=== PATIENT | female | born 1970 | race Caucasian/White ===

== ENCOUNTER 2017-05-01 14:59 | Emergency (ER) | payer OTHER ==
[2017-05-01 15:47] LABS: Absolute Lymphocytes (CBC) 4.6 K/uL (0.7-4.9); Absolute Monocytes 0.7 K/uL (0.1-1.3); Absolute Neutrophil 7.8 K/uL (1.8-8.0); Basophils % 0.8 % (0-1.3); Eosinophils % 0.6 % (0-4.4); Hematocrit 48.2 % (36.0-45.0); Lymphocytes % 34.4 % (15.3-44.8); MCH 30.8 pg (27.0-35.0); MCV 90.2 fL (80-100); MPV 9.2 fL (7.6-11.3); Monocytes % 5.6 % (3.3-12.3); RBC Red Blood Cell Count 5.34 M/uL (3.86-4.86)
[2017-05-01] MEDS ORDERED: NA CHLORIDE 0.9% 500 ML ONE (15:51)
[2017-05-01] MEDS ORDERED: LORazepam 2 MG/ML VIAL ONE (15:51)
[2017-05-01 15:52] LABS: Protime INR 0.97
[2017-05-01 15:57] LABS: Bicarbonate 24 mEq/L (21-31); Glucose Level 113 mg/dL (65-120); Potassium 3.7 mEq/L (3.6-5.0); Sodium Level 140 mEq/L (135-145)
[2017-05-01 16:03] LABS: ALT/SGPT 47 IU/L (10-60); AST/SGOT 55 IU/L (10-42); Albumin 5.2 g/dL (3.2-5.5); Alkaline Phosphatase 111 IU/L (42-121); BUN Blood Urea Nitrogen 8 mg/dL (6-20); Bilirubin Direct 0.2 mg/dL (0-0.2); Bilirubin Total 0.6 mg/dL (0.3-1.2); Glomerular Filtration Rate 65 mL/min (=/>90); Protein, Total 8.2 g/dL (6.0-8.3)
[2017-05-01 16:28] LABS: Barbiturates POSITIVE; Benzodiazepines POSITIVE; Cocaine NEGATIVE; METHAMPHETAM NEGATIVE; Opiates POSITIVE; Phencyclidine NEGATIVE; THC Cannibis NEGATIVE
[2017-05-01 16:44] LABS: Salicylates Level 9.9 mg/dl (<30)
[2017-05-01 16:51] LABS: Alcohol Serum/Plasma < 10 mg/dl
[2017-05-01] MEDS ORDERED: DIPHENHYDRAMINE 50 MG/ML VIAL ONE (17:16)
--- NOTE | 2017-05-01 17:53 | ER ---
Nurse's Notes [facility] Name: Rosario Hines Age: 46 yrs Sex: Female : 1970 Arrival Date: 05/01/2017 Time: 15:02 Bed 7 Private MD: Rufina Maradiaga H Diagnosis: Tremor, unspecified Presentation: 05/01 15:12 Presenting complaint: states: "She called me at work, said she felt like she hb was having a panic attack, took clonazepam, but it hasn't started to work yet, she is shaking bad.". Transition of care: patient was not received from another setting of care. Onset of symptoms was May 01, 2017. Care prior to arrival: Medication(s) given: clonazepam at 1330 today. 15:12 Method Of Arrival: Wheelchair hb 15:12 Acuity: LANETTE 3 hb 15:14 Note Pt sitting upright in wheelchair, looking around, talking to spouse, extremities hb shaking. 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 - Social history:: Smoking status: Patient uses tobacco products, smokes one-half pack cigarettes per day. Screenin:23 Abuse screen: Denies threats or abuse. Denies injuries from another. Nutritional jl7 screening: No deficits noted. Tuberculosis screening: No symptoms or risk factors identified. Fall Risk Secondary diagnosis (15 points) seizures, IV access (20 points). Mental Status- Overestimates/Forgets Limitations (15 pts.). Total Burnette Fall Scale indicates High Risk Score (45 or more points). Fall prevention measures have been instituted. Side Rails Up X 2 Placed Close to Nursing Station Frequent Obs/Assessments Occuring Family Present and informed to notify staff if the need to leave the bedside As available patient and family educated on Fall Prevention Program and Strategies. Assessment: 15:15 General: Appears in no apparent distress. Behavior is Pt's upper extremities appear to jl7 be shaking. Pt able to answer questions, A\\T\\Ox3.. Pain: Denies pain. Neuro: Level of Consciousness is awake, obeys commands, Oriented to person, place, time. Cardiovascular: Heart tones S1 S2 present. Respiratory: Airway is patent Respiratory effort is even, unlabored, Respiratory pattern is regular, symmetrical, Breath sounds are clear bilaterally. Derm: Skin is pink, warm \\T\\ dry. 16:15 Reassessment: No changes from previously documented assessment. Patient and/or family jl7 updated on plan of care and expected duration. Pain level reassessed. Patient is alert, oriented x 3, equal unlabored respirations, skin warm/dry/pink. 16:43 Reassessment: Provider at bedside discussing plan of care. jl7 17:03 Reassessment: No changes from previously documented assessment. Patient and/or family jl7 updated on plan of care and expected duration. Pain level reassessed. 18:00 Reassessment: Pt ambulated out of the ER, steady gate, no shaking of the extremities jl7 noted. Vital Signs: 15:15 Pulse 98; Resp 24; Temp 98; Pulse Ox 98% on R/A; hb 15:18 BP 169 / 108; Pulse 106; Resp 16 S; Pulse Ox 100% on R/A; Weight 81.65 kg (R); Height 5 jl7 ft. 4 in. (162.56 cm) (R); 15:30 BP 172 / 109; Pulse 90; Resp 18 S; Pulse Ox 99% on R/A; jl7 16:30 BP 158 / 92; Pulse 84; Resp 16 S; Pulse Ox 94% on R/A; jl7 17:21 BP 162 / 102; Pulse 68; Resp 18 S; Pulse Ox 94% on R/A; jl7 17:55 BP 155 / 94; Pulse 86; Resp 16 S; Pulse Ox 100% on R/A; jl7 15:18 Body Mass Index 30.90 (81.65 kg, 162.56 cm) jl7 15:18 Pt's upper extremities shaking jl7 ED Course: 15:02 Patient arrived in ED. mr 15:02 Rufina Maradiaga DO is Private Physician. mr 15:13 Triage completed. hb 15:16 Arm band placed on right wrist. hb 15:20 Initial lab(s) drawn, by ED staff, sent to lab. Inserted saline lock: 20 gauge in right jl7 antecubital area, using aseptic technique. Blood collected. 15:20 Urine collected: Blair catheter specimen, clear. Straight cath inserted, using sterile jl7 technique, 16 Fr. Specimen obtained. Returned clear yellow urine. Patient tolerated well. 15:25 Cheo Deluca PA is PHCP. cp 15:25 Arden Hilario MD is Attending Physician. cp 15:30 Jacob Partida RN is Primary Nurse. jl7 15:47 EKG done, by technology project manager. reviewed by Cheo JACINTO. rg3 16:23 Patient has correct armband on for positive identification. Placed in gown. Bed in low jl7 position. Call light in reach. Side rails up X2. Seizure precautions initiated. Pulse ox on. NIBP on. Warm blanket given. 17:55 No provider procedures requiring assistance completed. IV discontinued, intact, jl7 bleeding controlled, No redness/swelling at site. Pressure dressing applied. Administered Medications: 15:35 Drug: NS 0.9% 500 ml Route: IV; Rate: bolus; Site: right antecubital; jl7 16:26 Follow up: IV Status: Completed infusion jl7 15:40 Drug: Ativan 0.5 mg Route: IVP; Site: right antecubital; jl7 16:26 Follow up: Response: No adverse reaction; No change in condition jl7 17:02 Drug: Benadryl 25 mg Route: IVP; Site: right antecubital; jl7 17:30 Follow up: Response: No adverse reaction jl7 17:52 Not Given (Physician Discretion): Geodon 10 mg IM once cp Outcome: 17:53 Discharge ordered by . cp 18:00 Discharged to home ambulatory. jl7 18:00 Condition: stable 18:00 Discharge instructions given to patient, family, Instructed on discharge instructions, follow up and referral plans. medication usage, Demonstrated understanding of instructions, follow-up care, medications, Prescriptions given X 1. 18:09 Patient left the ED. jl7 Signatures: Carol Cuba mr PulidoCely rg3 Cheo Deluca PA PA cp Baxter, Heather, RN RN Jacob Partida RN RN jl7 Corrections: (The following items were deleted from the chart) 18:06 18:00 BP 155 / 94; Pulse 86bpm; Resp 16bpm; Spontaneous; Pulse Ox 100% RA; jl7 jl7
--- NOTE | 2017-05-01 17:53 | EDPHYS ---
Physician Documentation [facility] Name: Rosario Hines Age: 46 yrs Sex: Female : 1970 Arrival Date: 05/01/2017 Time: 15:02 Bed 7 Private MD: Rufina Maradiaga H ED Physician Arden Hilario HPI: 05/01 15:35 This 46 yrs old Female presents to ER via Wheelchair with complaints of cp Anxiety. 15:35 The patient presents to the emergency department with anxiety, generalized cp tremor/shaking. Onset: The symptoms/episode began/occurred today, about 1330. 15:35 Past psychiatric history: Prior diagnosis: bipolar disorder, pseudo-seizures, anxiety. 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 - Social history:: Smoking status: Patient uses tobacco products, smokes one-half pack cigarettes per day. ROS: 15:40 Constitutional: Negative for chills, fever, poor PO intake. cp 15:40 Eyes: Negative for injury, pain, redness, and discharge. cp 15:40 ENT: Negative for drainage from ear(s), ear pain, sore throat, difficulty swallowing, difficulty handling secretions. 15:40 Cardiovascular: Negative for chest pain, edema, palpitations. 15:40 Respiratory: Negative for cough, shortness of breath, wheezing. 15:40 Abdomen/GI: Negative for abdominal pain, nausea, vomiting, and diarrhea, black/tarry stool, rectal bleeding. 15:40 Neuro: Positive for tremor, of the right arm and left arm, Negative for altered mental status, headache, loss of consciousness, syncope. 15:40 Psych: Positive for anxiety, Negative for auditory hallucinations, visual hallucinations, suicide gesture, suicidal ideation. 15:40 All other systems are negative. Exam: 15:48 ECG was reviewed by the Attending Physician. cp 15:50 Constitutional: The patient appears in no acute distress, alert, awake, cp non-diaphoretic, non-toxic, well developed, well nourished. 15:50 Head/Face: Normocephalic, atraumatic. cp 15:50 Eyes: Periorbital structures: appear normal, Pupils: equal, round, and reactive to light and accomodation, Extraocular movements: intact throughout, Conjunctiva: normal, no exudate, no injection, Sclera: no appreciated abnormality, Lids and lashes: appear normal, bilaterally. 15:50 ENT: External ear(s): are unremarkable, Ear canal(s): are normal, clear, TM's: bulging, is not appreciated, bilaterally, dullness, bilaterally, erythema, is not appreciated, bilaterally, Nose: is normal, Mouth: Lips: moist, Oral mucosa: moist, Posterior pharynx: is normal, airway is patent, no erythema, no exudate. 15:50 Neck: ROM/movement: is normal, is supple, without pain, no range of motions limitations, no nuchal rigidity. 15:50 Chest/axilla: Inspection: normal, Palpation: is normal, no crepitus, no tenderness. 15:50 Cardiovascular: Rate: normal, Rhythm: regular, Pulses: Pulses are 2+ in right radial artery and left radial artery. Edema: is not appreciated, JVD: is not appreciated. 15:50 Respiratory: the patient does not display signs of respiratory distress, Respirations: normal, no use of accessory muscles, no retractions, no splinting, no tachypnea, labored breathing, is not present, Breath sounds: are clear throughout, no decreased breath sounds, no stridor, no wheezing. 15:50 Abdomen/GI: Inspection: abdomen appears normal, Bowel sounds: active, all quadrants, Palpation: abdomen is soft and non-tender, in all quadrants, rebound tenderness, is not appreciated, voluntary guarding, is not appreciated, involuntary guarding, is not appreciated. 15:50 Back: pain, is absent, ROM is normal. 15:50 Skin: cellulitis, is not appreciated, no rash present. 15:50 Neuro: Orientation: to person, place \T\ time. Mentation: lucid, able to follow commands, Motor: moves all fours, strength is normal, Sensation: no obvious gross deficits, Abnormal movements: resting tremor, is located in the right arm and left arm. Vital Signs: 15:15 Pulse 98; Resp 24; Temp 98; Pulse Ox 98% on R/A; hb 15:18 BP 169 / 108; Pulse 106; Resp 16 S; Pulse Ox 100% on R/A; Weight 81.65 kg (R); Height 5 jl7 ft. 4 in. (162.56 cm) (R); 15:30 BP 172 / 109; Pulse 90; Resp 18 S; Pulse Ox 99% on R/A; jl7 16:30 BP 158 / 92; Pulse 84; Resp 16 S; Pulse Ox 94% on R/A; jl7 17:21 BP 162 / 102; Pulse 68; Resp 18 S; Pulse Ox 94% on R/A; jl7 17:55 BP 155 / 94; Pulse 86; Resp 16 S; Pulse Ox 100% on R/A; jl7 15:18 Body Mass Index 30.90 (81.65 kg, 162.56 cm) jl7 15:18 Pt's upper extremities shaking jl7 MDM: 15:28 Patient medically screened. cp 16:14 Differential diagnosis: drug withdrawal. acute psychotic break, depression, psychosis cp secondary to non-compliance, seizure, pseudo seizure. 17:50 Data reviewed: vital signs, nurses notes, lab test result(s), EKG. cp 17:50 Test interpretation: by ED physician or midlevel provider: ECG. cp 17:50 Counseling: I had a detailed discussion with the patient and/or guardian regarding: the cp historical points, exam findings, and any diagnostic results supporting the discharge/admit diagnosis, lab results, to return to the emergency department if symptoms worsen or persist or if there are any questions or concerns that arise at home. Response to treatment: the patient's symptoms have mildly improved after treatment, and as a result, I will discharge patient. 05/01 15:28 Order name: Acetaminophen cp 05/01 15:28 Order name: Basic Metabolic Panel cp 05/01 15:28 Order name: CBC with Diff cp 05/01 15:28 Order name: ETOH Level cp 05/01 15:28 Order name: Hepatic Function cp 05/01 15:28 Order name: PT-INR cp 05/01 15:28 Order name: Ptt, Activated cp 05/01 15:28 Order name: Salicylate cp 05/01 15:28 Order name: Urine Drug Screen cp 05/01 15:48 Order name: CBC with Automated Diff; Complete Time: 15:57 EDMS 05/01 15:58 Interpretation: Normal except: WBC 13.3; RBC 5.34; HGB 16.4; HCT 48.2. cp 05/01 15:55 Order name: Protime (+INR); Complete Time: 15:57 EDMS 05/01 15:55 Order name: PTT, Activated Partial Thromb; Complete Time: 15:57 EDMS 05/01 15:57 Order name: Basic Metabolic Panel; Complete Time: 17:22 EDMS 05/01 17:22 Interpretation: Normal except: CL 100; GFR 65. cp 05/01 16:16 Order name: Urine Dipstick--Ancillary (enter results) bd 05/01 15:28 Order name: EKG; Complete Time: 15:29 cp 05/01 15:28 Order name: EKG - Nurse/Tech; Complete Time: 15:57 cp 05/01 15:28 Order name: IV Saline Lock; Complete Time: 15:31 cp 05/01 15:28 Order name: Labs collected and sent; Complete Time: 15:57 cp 05/01 15:28 Order name: Urine Dipstick-Ancillary (obtain specimen); Complete Time: 16:17 cp 05/01 16:27 Order name: Straight Cath - Urine; Complete Time: 16:27 [facility] 05/01 16:28 Order name: Urine Drug Screen; Complete Time: 16:30 EDMS 05/01 16:31 Interpretation: Normal except: BZO POSITIVE; OPI POSITIVE; BETTY POSITIVE. cp 05/01 16:52 Order name: Liver (Hepatic) Function; Complete Time: 17:22 EDMS 05/01 16:52 Order name: Acetaminophen Level; Complete Time: 17:22 EDMS 05/01 16:52 Order name: Alcohol Serum/Plasma; Complete Time: 17:22 EDMS 05/01 16:52 Order name: Salicylates Level; Complete Time: 17:22 EDMS EC:48 Rate is 98 beats/min. Rhythm is regular. [place] interval is normal. QRS interval is normal. cp QT interval is normal. Interpreted by me. Reviewed by me. Administered Medications: 15:35 Drug: NS 0.9% 500 ml Route: IV; Rate: bolus; Site: right antecubital; [facility] 16:26 Follow up: IV Status: Completed infusion jl7 15:40 Drug: Ativan 0.5 mg Route: IVP; Site: right antecubital; jl7 16:26 Follow up: Response: No adverse reaction; No change in condition jl7 17:02 Drug: Benadryl 25 mg Route: IVP; Site: right antecubital; jl7 17:30 Follow up: Response: No adverse reaction jl7 17:52 Not Given (Physician Discretion): Geodon 10 mg IM once cp Disposition: 18:39 Co-signature as Attending Physician, Arden Hilario MD. rn Disposition: 05/01/17 17:53 Discharged to Home. Impression: Tremor, unspecified. - Condition is Stable. - Discharge Instructions: Tremor. - Prescriptions for Benadryl 25 mg Oral Capsule - take 1 capsule by ORAL route every 6 hours As needed; 30 tablet. - Medication Reconciliation Form, Thank You Letter, Antibiotic Education, Prescription Opioid Use form. - Follow up: Private Physician; When: 1 - 2 days; Reason: Recheck today's complaints. - Problem is new. - Symptoms have improved. Signatures: Dispatcher [employer] EDMS Arden Hilario MD MD rn Page, Corey, PA PA cp Lexis Elmore RN RN hb Leal, Jahala, RN RN jl7 Corrections: (The following items were deleted from the chart) 16:04 16:03 This 46 yrs old Female presents to ER via Wheelchair with complaints of cp Anxiety. cp 17:23 16:23 Normal except: CL 100. cp cp
[2017-05-01 18:13] VITALS: TEMP 98
[2017-05-01 18:18] VITALS: BP 155/94; O2SAT 100
[2017-05-01 18:52] LABS: Urine Blood 1+ (NEG); Urine Glucose NEGATIVE (NEG); Urine Protein NEGATIVE (NEG); Urine Specific Gravity <1.005 (1.005-1.030)
--- NOTE | 2017-05-02 05:57 | EKG ---
Test Date: 2017-05-01 Test Time: 15:40:01 Senior Policy Analyst: INESSA MEASUREMENT RESULTS: Intervals: Rate: 98 OR: 130 QRSD: 68 QT: 356 QTc: 454 [place]: P: 63 OR: 130 QRS: 29 T: 10 INTERPRETIVE STATEMENTS: Normal sinus rhythm Nonspecific ST abnormality Abnormal ECG Compared to ECG 01/21/2015 07:54:29 ST (T wave) deviation now present Left ventricular hypertrophy no longer present T-wave abnormality no longer present Electronically Signed On 05-02-17 05:56:50 CDT by Werner Tirado
== END 2017-05-01 18:09 | disposition home or self-care (01) ==
LOC: ER 14:59
DX: R25.1 Tremor, unspecified (principal); F31.9 Bipolar disorder, unspecified; F17.210 Nicotine dependence, cigarettes, uncomplicated
CPT/HCPCS: 36415; 51702; 80048; 80076; 80307; 80320; 80329; 81003; 85025; 85610; 85730; 93005; 96361; 96374; 96375; 99284

== ENCOUNTER 2017-06-13 12:38 | Observation (INO) | payer OTHER ==
--- OUTSIDE RECORDS SUMMARY | 2017-06-13 12:40 | XMS REPORT ---
:1970 Author Organization [employer] Care Team Providers Name Role Phone Marce Rosas Provider Role Unavailable Allergies, Adverse Reactions, Alerts Substance Reaction Event Type Ibuprofen Info Not Available Drug Allergy Problems Problem Type Condition Code Onset Dates Condition Status Assessment Kidney stones N20.0 Active Assessment Microhematuria R31.29 Active Problem Kidney stones N20.0 Active Medications Medication Code Code Instructions Start End Status Dosage System Date Date Zanaflex [facility] 20435228955 4 MG Orally Active 1 tablet twice a day as needed Celexa [facility] 50314258585 40 MG Orally Active 1 tablet Once a day Lorazepam [facility] 49857358483 2 MG Orally Once Active 1 tablet a day at bedtime as needed Trazodone HCl [facility] 91345555558 100 MG Orally Active 3 times a TID day Urocit-K 10 [facility] 11582787211 10 MEQ (1080 MG) Active 1 tablet Orally daily with meals Results Name Result Date Reference Range Unit Abnormality Flag URINALYSIS AUTO W/O SCOPE (37727) ----LOY trace [id number] ----NIT neg [id number] ----PROTEIN neg [id number] ----pH 6.0 [id number] ----GLUCOSE neg [id number] ----KETONES neg [id number] ----SPECIFIC GRAVITY 1.025 [id number] ----BLO 1+ [id number] Summary Purpose [employer] Submission
--- NOTE | 2017-06-13 13:19 | RAD REPORT ---
EXAM DESCRIPTION: Tiffany Single View06/13/2017 1:12 pm CLINICAL HISTORY: Chest pain COMPARISON: 2014 FINDINGS: The lungs appear clear of acute infiltrate. The heart is normal size IMPRESSION: No acute abnormalities displayed
--- NOTE | 2017-06-13 13:36 | EKG ---
Test Date: 2017-06-13 Test Time: 12:52:34 Director Of Business Applications: AMANDA MEASUREMENT RESULTS: Intervals: Rate: 65 [place]: 126 QRSD: 62 QT: 398 QTc: 413 [place]: P: 28 [place]: 126 QRS: 23 T: 3 INTERPRETIVE STATEMENTS: Normal sinus rhythm Normal ECG Compared to ECG 05/01/2017 15:40:01 ST (T wave) deviation no longer present Electronically Signed On 06-13-17 13:36:04 CDT by Werner Tirado
[2017-06-13 13:55] LABS: Urine Blood TRACE (NEG); Urine Glucose NEGATIVE (NEG); Urine Protein NEGATIVE (NEG); Urine pH 8.5 (5.0-7.0)
[2017-06-13] MEDS ORDERED: ONDANSETRON 4 MG/2 ML VIAL ONE (13:59)
[2017-06-13] MEDS ORDERED: NA CHLORIDE 0.9% 1,000 ML ONE (14:00)
[2017-06-13] MEDS ORDERED: Morphine 2 MG/2 ML SYR ONE (14:00)
[2017-06-13 14:03] LABS: Absolute Lymphocytes (CBC) 2.8 K/uL (0.7-4.9); Absolute Monocytes 0.4 K/uL (0.1-1.3); Absolute Neutrophil 4.5 K/uL (1.8-8.0); Basophils % 0.6 % (0-1.3); Eosinophils % 1.4 % (0-4.4); Hematocrit 39.5 % (36.0-45.0); Lymphocytes % 35.9 % (15.3-44.8); MCH 30.8 pg (27.0-35.0); MCV 90.1 fL (80-100); MPV 8.6 fL (7.6-11.3); Monocytes % 5.1 % (3.3-12.3); RBC Red Blood Cell Count 4.38 M/uL (3.86-4.86)
[2017-06-13 14:07] LABS: Protime INR 0.92
[2017-06-13 14:09] LABS: Potassium 3.6 mEq/L (3.6-5.0)
[2017-06-13 14:15] LABS: Albumin 4.1 g/dL (3.2-5.5); Bilirubin Direct 0.1 mg/dL (0-0.2); Bilirubin Total 0.4 mg/dL (0.3-1.2); Magnesium 1.8 mg/dL (1.8-2.5); Protein, Total 6.9 g/dL (6.0-8.3)
[2017-06-13 14:18] LABS: CKMB Creatine Kinase MB 1.6 ng/ml (0.3-4.0)
[2017-06-13] MEDS ORDERED: NITROGLYCERIN 0.4 MG/TAB SL ONE (14:45)
[2017-06-13] MEDS ORDERED: FENTANYL CITR 100 MCG/2 ML ONE (15:08)
[2017-06-13] MEDS ORDERED: cloNIDine HCl 0.1 MG TAB ONE (15:46)
[2017-06-13] MEDS ORDERED: MAGNE/ALUM HYDROXD 30 ML UCUP ONE (16:43)
[2017-06-13] MEDS ORDERED: LIDOCAINE VISCOUS 2% SOLN 15 ML UDC ONE (16:43)
[2017-06-13] MEDS ORDERED: HYDRALAZINE HCL 20 MG/ML VIAL ONE (16:45)
--- NOTE | 2017-06-13 17:52 | ER ---
Nurse's Notes [facility] Name: Rosario Hines Age: 46 yrs Sex: Female : 1970 Arrival Date: 06/13/2017 Time: 12:44 Bed 5 Private MD: Diagnosis: Chest pain, unspecified;Hypertensive heart disease Presentation: 06/13 12:30 Presenting complaint: EMS states: "She's been having chest pain since about 1100, jl7 radiates the the right arm and back and is starting to go up the neck.". 12:30 Transition of care: patient was not received from another setting of care. Onset of jl7 symptoms was June 13, 2017 at 11:00. Initial Sepsis Screen: Does the patient meet any 2 criteria? No. Patient's initial sepsis screen is negative. Does the patient have a suspected source of infection? No. Patient's initial sepsis screen is negative. Care prior to arrival: Medication(s) given: ASA, 81 mg, x 4. 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 - Social history:: Smoking status: Patient uses tobacco products, smokes one pack cigarettes per day. Screenin:56 Abuse screen: Denies threats or abuse. Denies injuries from another. Nutritional jl7 screening: No deficits noted. Tuberculosis screening: No symptoms or risk factors identified. Fall Risk IV access (20 points). Total Burnette Fall Scale indicates No Risk (0-24 pts). Assessment: 12:30 General: Appears uncomfortable, Behavior is cooperative. Pain: Complains of pain in jl7 anterior aspect of left upper chest Pain radiates to back and left arm Pain currently is 7 out of 10 on a pain scale. Quality of pain is described as pressure, sharp, Pain began 2 hours ago. Is continuous. Neuro: Level of Consciousness is awake, alert, obeys commands, Oriented to person, place, time, situation. Cardiovascular: Heart tones S1 S2 present Patient's skin is warm and dry. Respiratory: Airway is patent Respiratory effort is even, unlabored, Respiratory pattern is regular, symmetrical. GI: Reports nausea. : No signs and/or symptoms were reported regarding the genitourinary system. EENT: No signs and/or symptoms were reported regarding the EENT system. Derm: Skin is pink, warm \\T\\ dry. 13:30 Reassessment: No changes from previously documented assessment. Patient and/or family jl7 updated on plan of care and expected duration. Pain level reassessed. Patient is alert, oriented x 3, equal unlabored respirations, skin warm/dry/pink. 14:35 Reassessment: pt c/o continued chest pain, rated 7/10. Provider notified of chest pain jl7 and BP. See MAR for orders. 15:00 Reassessment: pt reports "The pain is still there." Rated 7/10. Provider notified of jl7 continued pain and BP. See MAR for orders. 16:00 Reassessment: Patient and/or family updated on plan of care and expected duration. Pain jl7 level reassessed. Patient is alert, oriented x 3, equal unlabored respirations, skin warm/dry/pink. 16:45 Reassessment: No changes from previously documented assessment. Provider notified, see jl7 MAR for orders. 19:00 Reassessment: RECD REPORT FROM KEILA FABIAN. 46YO WF P/W CP, ADMIT IN PROCESS. ALL CURRENT bp STUDIES UNREMARKABLE, VS STABLE ON MONITOR. Vital Signs: 12:30 BP 178 / 94; Pulse 70; Resp 16; Pulse Ox 100% ; Weight 83.91 kg; Height 5 ft. 4 in. jl7 (162.56 cm); 13:00 BP 173 / 71; Pulse 66; Resp 16; Pulse Ox 98% ; Pain 7/10; jl7 14:00 BP 176 / 98; Pulse 64; Resp 18; Pulse Ox 96% ; jl7 14:15 BP 167 / 105; Pulse 62; Resp 16; Pulse Ox 97% ; jl7 14:35 BP 191 / 110; Pulse 68; Resp 16; Pulse Ox 97% ; jl7 15:00 BP 176 / 103; Pulse 59; Resp 16; Pulse Ox 97% ; Pain 7/10; jl7 15:30 BP 176 / 105; Pulse 65; Resp 16; Pulse Ox 97% ; jl7 16:00 BP 188 / 106; Pulse 56; Resp 16; Pulse Ox 98% ; jl7 16:30 BP 183 / 101; Pulse 58; Resp 16; Pulse Ox 98% ; Pain 7/10; jl7 16:45 BP 157 / 105; Pulse 67; Resp 16; Pulse Ox 98% ; Pain 7/10; jl7 17:00 BP 154 / 97; Pulse 64; Resp 16; Pulse Ox 98% ; jl7 17:15 BP 141 / 83; Pulse 61; Resp 16; Pulse Ox 98% ; jl7 17:45 BP 144 / 89; Pulse 69; Resp 16; Pulse Ox 97% ; jl7 18:15 BP 136 / 88; Pulse 65; Resp 16; Pulse Ox 98% ; jl7 18:45 BP 160 / 86; Pulse 63; Resp 16; Pulse Ox 99% ; jl7 20:01 BP 142 / 90; Pulse 63; Resp 14; Pulse Ox 98% ; bp 12:30 Body Mass Index 31.75 (83.91 kg, 162.56 cm) jl7 ED Course: 12:30 Arm band placed on right wrist. jl7 12:30 Patient maintains SpO2 saturation greater than 95% on room air. jl7 12:44 Patient arrived in ED. jl7 12:46 Cheo Deluca PA is PHCP. cp 12:46 Michael Mart MD is Attending Physician. cp 13:02 Triage completed. jl7 13:09 X-ray completed. Portable x-ray completed in exam room. Patient tolerated procedure jb2 well. 13:10 XRAY Chest (1 view) In Process Unspecified. EDMS 13:13 Keila Partida, RUI is Primary Nurse. jl7 13:30 Initial lab(s) drawn, by ny, sent to lab. Urine collected: clean catch specimen, clear. jl7 Inserted saline lock: 22 gauge in right hand, using aseptic technique. Blood collected. 14:56 Patient has correct armband on for positive identification. Placed in gown. Bed in low jl7 position. Call light in reach. Side rails up X2. investigative research specialist on. Pulse ox on. NIBP on. 16:59 EKG done, by sound effects technician. reviewed by Cheo JACINTO Repeat EKG. at1 17:30 Radiology exam delayed due to IV insertion attempt and/or patient not having nj appropriate IV at this time. 17:49 CT Aorta for Dissection In Process Unspecified. EDMS 17:[address] via stretcher. nj 17:50 CT completed. Patient tolerated procedure well. Patient moved back from CT. nj 17:50 Lanre Zavala DO is Hospitalizing Provider. cp 19:00 Report given to RUI Dowell. jl7 19:45 Primary Nurse role handed off by Keila Partida RN rg2 19:55 Delmer Mcfadden RN is Primary Nurse. bp 20:03 No provider procedures requiring assistance completed. Patient admitted, IV remains in bp place. Administered Medications: 13:45 Drug: NS 0.9% 500 ml Route: IV; Rate: bolus; Site: right hand; jl7 20:01 Follow up: IV Status: Completed infusion; IV Intake: 500ml bp 13:45 Drug: NS 0.9% 1000 ml Route: IV; Rate: 100 ml/hr; Site: right hand; jl7 20:00 Follow up: IV Status: Infusion continued upon admission bp 13:50 Drug: Pepcid 20 mg Route: IVP; Site: right hand; jl7 14:35 Follow up: Response: No adverse reaction jl7 13:52 Drug: Zofran 4 mg Route: IVP; Site: right hand; jl7 14:34 Follow up: Response: No adverse reaction jl7 14:39 Drug: morphine 2 mg Route: IVP; Site: right hand; jl7 14:45 Follow up: Response: No adverse reaction; Pain is unchanged, physician notified jl7 14:48 Drug: Nitroglycerin 0.4 mg Route: Sublingual; jl7 15:00 Follow up: Response: No adverse reaction; No change in condition; Pain is unchanged, jl7 physician notified 15:09 Drug: fentaNYL (PF) 25 mcg Route: IVP; Site: right hand; jl7 16:45 Follow up: Response: No adverse reaction; Pain is unchanged, physician notified jl7 15:55 Drug: cloNIDine 0.1 mg Route: PO; jl7 16:45 Follow up: Response: No change in condition jl7 16:45 Drug: GI Cocktail without - (Maalox Suspension 30 ml, Lidocaine Liquid 2 % 15 jl7 ml) Route: PO; 17:00 Follow up: Response: No change in condition jl7 16:48 Drug: hydrALAZINE 10 mg Route: IV; Rate: calculated rate; Site: right hand; 7 17:00 Follow up: Response: Blood pressure is lowered jl7 20:00 Follow up: IV Status: Completed infusion bp 16:58 Not Given (Physician Discretion): Lovenox 1 mg/kg Sub-Q once cp 19:20 Drug: Lovenox 1 mg/kg Route: Sub-Q; Site: abdomen; [facility] 19:59 Follow up: Response: No adverse reaction bp 19:20 Drug: morphine 4 mg Route: IVP; Site: right antecubital; 7 19:59 Follow up: Response: Pain is decreased bp Intake: 20:01 IV: 500ml; Total: 500ml. bp Outcome: 17:51 Decision to Hospitalize by Provider. cp 20:03 Condition: stable bp 20:03 Instructed on the need for admit. 20:53 Patient left the ED. bp Signatures: Dispatcher [employer] EDMS Iker Villarreal rg2 David Healy jb2 Kelly dewey, device sales consultant EKG Tat1 Cheo Deluca PA PA cp Jordan, Nathan nj Leal, Jahala, RN RN jl7 Lucita Moon [facility] Delmer Mcfadden RN RN bp Corrections: (The following items were deleted from the chart) 17:39 17:26 Patient moved to [facility] 2
--- NOTE | 2017-06-13 17:52 | EDPHYS ---
Physician Documentation [facility] Name: Rosario Hines Age: 46 yrs Sex: Female : 1970 Arrival Date: 06/13/2017 Time: 12:44 Bed 5 Private MD: ED Physician Michael Mart HPI: 06/13 13:04 This 46 yrs old Female presents to ER via EMS with complaints of Chest Pain > cp 29 y/o. 13:04 The patient or guardian reports chest pain that is located primarily in the anterior cp chest wall, left. Onset: today, at 11:00. 13:04 The pain radiates to the left arm, cp 13:04 Associated signs and symptoms: Pertinent negatives: abdominal pain, cough, diaphoresis, cp lower extremity pain, lower extremity swelling, near syncope, recent travel, syncope. The chest pain is described as constant. Duration: The patient or guardian reports a single episode, that is still ongoing, and unchanged. 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 - Social history:: Smoking status: Patient uses tobacco products, smokes one pack cigarettes per day. ROS: 13:10 Constitutional: Negative for body aches, chills, fever, poor PO intake. cp 13:10 Eyes: Negative for injury, pain, redness, and discharge, ENT: Negative for injury, cp pain, and discharge. 13:10 Cardiovascular: Positive for chest pain, Negative for edema, palpitations. 13:10 Respiratory: Negative for cough, wheezing. 13:10 Abdomen/GI: Negative for abdominal pain, nausea, vomiting, and diarrhea, black/tarry stool, rectal bleeding. 13:10 Back: Positive for radiated pain. 13:10 : Negative for urinary symptoms. 13:10 Skin: Negative for cellulitis, rash. 13:10 Neuro: Negative for altered mental status, headache, numbness, weakness. 13:10 All other systems are negative. Exam: 13:00 ECG was reviewed by the Attending Physician. cp 13:15 Constitutional: The patient appears in no acute distress, alert, awake, cp non-diaphoretic, non-toxic, well developed, well nourished. 13:15 Head/Face: Normocephalic, atraumatic. Eyes: Pupils equal round and reactive to light, cp extra-ocular motions intact. Lids and lashes normal. Conjunctiva and sclera are non-icteric and not injected. Cornea within normal limits. Periorbital areas with no swelling, redness, or edema. ENT: Nares patent. No nasal discharge, no septal abnormalities noted. Tympanic membranes are normal and external auditory canals are clear. Oropharynx with no redness, swelling, or masses, exudates, or evidence of obstruction, uvula midline. Mucous membranes moist. Chest/axilla: Normal chest wall appearance and motion. Nontender with no deformity. No lesions are appreciated. 13:15 Cardiovascular: Rate: normal, Rhythm: regular, Pulses: Pulses are 2+ in right radial artery and left radial artery. Edema: is not appreciated, JVD: is not appreciated. 13:15 Respiratory: the patient does not display signs of respiratory distress, Respirations: normal, no use of accessory muscles, no retractions, no splinting, no tachypnea, labored breathing, is not present, Breath sounds: are clear throughout, no decreased breath sounds, no stridor, no wheezing. 13:15 Abdomen/GI: Inspection: abdomen appears normal, Bowel sounds: active, all quadrants, Palpation: abdomen is soft and non-tender, in all quadrants, rebound tenderness, is not appreciated, voluntary guarding, is not appreciated, involuntary guarding, is not appreciated. 13:15 Back: pain, that is mild. 13:15 Skin: cellulitis, is not appreciated, no rash present. 13:15 Neuro: Orientation: to person, place \T\ time. Mentation: lucid, able to follow commands, Cerebellar function: is grossly normal, Motor: moves all fours, strength is normal, Sensation: no obvious gross deficits. 16:55 ECG was reviewed by the Attending Physician. cp Vital Signs: 12:30 BP 178 / 94; Pulse 70; Resp 16; Pulse Ox 100% ; Weight 83.91 kg; Height 5 ft. 4 in. 7 (162.56 cm); 13:00 BP 173 / 71; Pulse 66; Resp 16; Pulse Ox 98% ; Pain 7/10; jl7 14:00 BP 176 / 98; Pulse 64; Resp 18; Pulse Ox 96% ; jl7 14:15 BP 167 / 105; Pulse 62; Resp 16; Pulse Ox 97% ; jl7 14:35 BP 191 / 110; Pulse 68; Resp 16; Pulse Ox 97% ; jl7 15:00 BP 176 / 103; Pulse 59; Resp 16; Pulse Ox 97% ; Pain 7/10; jl7 15:30 BP 176 / 105; Pulse 65; Resp 16; Pulse Ox 97% ; jl7 16:00 BP 188 / 106; Pulse 56; Resp 16; Pulse Ox 98% ; jl7 16:30 BP 183 / 101; Pulse 58; Resp 16; Pulse Ox 98% ; Pain 7/10; jl7 16:45 BP 157 / 105; Pulse 67; Resp 16; Pulse Ox 98% ; Pain 7/10; jl7 17:00 BP 154 / 97; Pulse 64; Resp 16; Pulse Ox 98% ; jl7 17:15 BP 141 / 83; Pulse 61; Resp 16; Pulse Ox 98% ; jl7 17:45 BP 144 / 89; Pulse 69; Resp 16; Pulse Ox 97% ; jl7 18:15 BP 136 / 88; Pulse 65; Resp 16; Pulse Ox 98% ; jl7 18:45 BP 160 / 86; Pulse 63; Resp 16; Pulse Ox 99% ; jl7 20:01 BP 142 / 90; Pulse 63; Resp 14; Pulse Ox 98% ; bp 12:30 Body Mass Index 31.75 (83.91 kg, 162.56 cm) [facility] MDM: 12:46 Patient medically screened. cp 13:00 The patient was not given aspirin in the Emergency Department. Administered by EMS. cp 17:00 Data reviewed: vital signs, nurses notes, lab test result(s), EKG, radiologic studies, cp plain films, and as a result, I will admit patient. 17:00 Test interpretation: by ED physician or midlevel provider: ECG, plain radiologic cp studies. Response to treatment: the patient's symptoms have mildly improved after treatment. 17:05 Physician consultation: Dr Morrison will admit for continued observation. cp 06/13 12:56 Order name: Basic Metabolic Panel; Complete Time: 14:27 cp 06/13 14:27 Interpretation: Normal except: GFR 60. cp 02 12:56 Order name: BNP; Complete Time: 14:27 cp 06/13 15:39 Interpretation: Abnormal: BNP 209. cp 06/13 12:56 Order name: CBC with Diff; Complete Time: 14:27 cp 05 12:56 Order name: Ckmb; Complete Time: 14:27 cp 06/13 12:56 Order name: CPK; Complete Time: 14:27 cp 06/13 12:56 Order name: LFT's; Complete Time: 14:27 cp 06/13 12:56 Order name: Magnesium; Complete Time: 14:27 cp 06/13 12:56 Order name: PT-INR; Complete Time: 14:27 cp 06/13 12:56 Order name: Ptt, Activated; Complete Time: 14:27 cp 06/13 12:56 Order name: Troponin (emerg Dept Use Only); Complete Time: 14:27 cp 06/13 14:27 Interpretation: Reviewed. cp 06/13 12:56 Order name: XRAY Chest (1 view); Complete Time: 13:48 cp 06/13 13:48 Interpretation: Report review. cp 06/13 13:29 Order name: Urine Dipstick--Ancillary (enter results); Complete Time: 14:27 mw2 06/13 15:39 Interpretation: Normal except: UBLD TRACE; UPH 8.5. cp 06/13 13:29 Order name: Urine --Ancillary (enter results); Complete Time: 14:27 mw2 06/13 16:58 Order name: CT Aorta for Dissection; Complete Time: 18:11 cp 06/13 12:45 Order name: EKG; Complete Time: 12:46 7 06/13 12:45 Order name: EKG - Nurse/Tech; Complete Time: 13:01 jl7 06/13 16:45 Order name: EKG; Complete Time: 16:46 cp 06/13 12:56 Order name: Urine Test (obtain specimen); Complete Time: 13:18 cp 06/13 12:56 Order name: Cardiac monitoring; Complete Time: 13:07 cp 06/13 12:56 Order name: IV Saline Lock; Complete Time: 14:34 cp 06/13 12:56 Order name: Labs collected and sent; Complete Time: 14:34 cp 06/13 12:56 Order name: O2 Per Protocol; Complete Time: 13:07 cp 06/13 12:56 Order name: O2 Sat Monitoring; Complete Time: 13:07 cp 06/13 12:56 Order name: Urine Dipstick-Ancillary (obtain specimen); Complete Time: 13:18 cp 06/13 16:45 Order name: EKG - Nurse/Tech; Complete Time: 16:49 cp EC:00 Rate is 65 beats/min. Rhythm is regular. GA interval is normal. QRS interval is normal. cp QT interval is normal. No ST changes noted. Interpreted by me. Reviewed by me. 16:55 Rate is 60 beats/min. Rhythm is regular. GA interval is normal. QRS interval is normal. cp QT interval is normal. T waves are Inverted in leads V3, V4. No ST changes noted. Interpreted by me. Reviewed by me. Administered Medications: 13:45 Drug: NS 0.9% 500 ml Route: IV; Rate: bolus; Site: right hand; jl7 20:01 Follow up: IV Status: Completed infusion; IV Intake: 500ml bp 13:45 Drug: NS 0.9% 1000 ml Route: IV; Rate: 100 ml/hr; Site: right hand; jl7 20:00 Follow up: IV Status: Infusion continued upon admission bp 13:50 Drug: Pepcid 20 mg Route: IVP; Site: right hand; jl7 14:35 Follow up: Response: No adverse reaction jl7 13:52 Drug: Zofran 4 mg Route: IVP; Site: right hand; jl7 14:34 Follow up: Response: No adverse reaction jl7 14:39 Drug: morphine 2 mg Route: IVP; Site: right hand; jl7 14:45 Follow up: Response: No adverse reaction; Pain is unchanged, physician notified jl7 14:48 Drug: Nitroglycerin 0.4 mg Route: Sublingual; jl7 15:00 Follow up: Response: No adverse reaction; No change in condition; Pain is unchanged, jl7 physician notified 15:09 Drug: fentaNYL (PF) 25 mcg Route: IVP; Site: right hand; jl7 16:45 Follow up: Response: No adverse reaction; Pain is unchanged, physician notified jl7 15:55 Drug: cloNIDine 0.1 mg Route: PO; jl7 16:45 Follow up: Response: No change in condition jl7 16:45 Drug: GI Cocktail without - (Maalox Suspension 30 ml, Lidocaine Liquid 2 % 15 jl7 ml) Route: PO; 17:00 Follow up: Response: No change in condition jl7 16:48 Drug: hydrALAZINE 10 mg Route: IV; Rate: calculated rate; Site: right hand; jl7 17:00 Follow up: Response: Blood pressure is lowered jl7 20:00 Follow up: IV Status: Completed infusion bp 16:58 Not Given (Physician Discretion): Lovenox 1 mg/kg Sub-Q once cp 19:20 Drug: Lovenox 1 mg/kg Route: Sub-Q; Site: abdomen; jl7 19:59 Follow up: Response: No adverse reaction bp 19:20 Drug: morphine 4 mg Route: IVP; Site: right antecubital; jl7 19:59 Follow up: Response: Pain is decreased bp Disposition: 06/13/17 17:51 Hospitalization ordered by Lanre Zavala for Observation. Preliminary diagnosis are Chest pain, unspecified, Hypertensive heart disease. - Bed requested for Telemetry/MedSurg (observation). - Status is Observation. bp - Condition is Stable. - Problem is new. - Symptoms have improved. UTI on Admission? No Addendum: 06/15/2017 06:43 Co-signature as Attending Physician, Michael Mart MD I agree with the assessment and w a plan of care. Signatures: Dispatcher [employer] EDMS Berkley Goode RN RN kl Page, Corey, PA PA cp Leal, Jahala, RN RN jl7 Michael Mart MD MD wa Peltier, Brian RN RN bp Corrections: (The following items were deleted from the chart) 06/13 19:31 17:51 Hospitalization Ordered by Lanre Zavala DO for Observation. Preliminary kl diagnosis is Chest pain, unspecified; Hypertensive heart disease. Bed requested for Telemetry/MedSurg (observation). Status is Observation. Condition is Stable. Problem is new. Symptoms have improved. UTI on Admission? No. cp 20:53 19:31 06/13/2017 17:51 Hospitalization Ordered by Lanre Zavala DO for Observation. bp Preliminary diagnosis is Chest pain, unspecified; Hypertensive heart disease. Bed requested for Telemetry/MedSurg (observation). Status is Observation. Condition is Stable. Problem is new. Symptoms have improved. UTI on Admission? No. kl 06/14 19:57 06/13 13:04 The pain radiates to the left arm, cp cp
--- NOTE | 2017-06-13 17:57 | EKG ---
Test Date: 2017-06-13 Test Time: 16:49:37 Instrument Technician: DAWIT MEASUREMENT RESULTS: Intervals: Rate: 60 NC: 156 QRSD: 68 QT: 412 QTc: 412 Spencer: P: 26 NC: 156 QRS: 7 T: 1 INTERPRETIVE STATEMENTS: Normal sinus rhythm Nonspecific T wave abnormality Abnormal ECG Compared to ECG 06/13/2017 12:52:34 T-wave abnormality now present Electronically Signed On 06-13-17 17:57:19 CDT by Werner Tirado
--- NOTE | 2017-06-13 18:06 | RAD REPORT ---
EXAM DESCRIPTION: CT - Angio Aorta For Dissection - 06/13/2017 5:49 pm CLINICAL HISTORY: . Chest and abdominal pain COMPARISON: April 2016 TECHNIQUE: Computed tomography angiography of the chest, abdomen pelvis were obtained. 100 cc Isovue 370 was administered intravenously. Coronal and sagittal reconstruction were performed. All CT scans are performed using dose optimization technique as appropriate and may include automated exposure control or mA/KV adjustment according to patient size. FINDINGS: An aortic dissection is not seen. An aortic aneurysm is not displayed. The celiac, SMA and PATTI are patent . A lung consolidation is not present. A pericardial effusion is not seen. A pleural effusion is not n oted. The liver,spleen, pancreas adrenals and kidneys demonstrate no significant abnormality. There is no evidence of diverticulitis. A hysterectomy has been performed IMPRESSION: Negative for an aortic dissection.
[2017-06-13] MEDS ORDERED: MORPHINE 4 MG/ML SYR ONE (18:48)
[2017-06-13] MEDS ORDERED: ENOXAPARIN 80 MG/0.8 ML SQ ONE (18:49)
[2017-06-13] MEDS ORDERED: NITROGLYCERIN 0.4 MG/TAB SL PRN (20:10)
[2017-06-13] MEDS ORDERED: TIZANIDINE 4 MG TABLET PO PRN (21:18)
[2017-06-13 22:41] LABS: CKMB Creatine Kinase MB 2.3 ng/ml (0.3-4.0)
[2017-06-13] MEDS ORDERED: LORAZEPAM 1 MG TABLET ONE (22:47)
[2017-06-13] MEDS ORDERED: TRAZODONE 50 MG TABLET ONE (22:47)
[2017-06-13 23:20] VITALS: BMI 31.8
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
[2017-06-14] MEDS: KETOROLAC 30 MG/ML INJ IV PRN ×2 (05:22→11:25)
[2017-06-14 05:49] LABS: CKMB Creatine Kinase MB 1.9 ng/ml (0.3-4.0)
[2017-06-14] MEDS ORDERED: ONDANSETRON 4 MG/2 ML VIAL IV PRN (07:56)
[2017-06-14 08:38] VITALS: O2SAT 96
[2017-06-14] MEDS ORDERED: LORAZEPAM 1 MG TABLET PO SCH (09:00)
[2017-06-14] MEDS ORDERED: ASPIRIN EC 81 MG TAB PO SCH (09:00)
[2017-06-14] MEDS ORDERED: ENOXAPARIN 40 MG/0.4 ML SQ SCH (09:00)
--- NOTE | 2017-06-14 12:42 | TREADMILL ---
70% H.R.: 121 85% H.R.: 147 90% H.R.: 156 100% H.R.: 173 DX: CHEST PAIN Date of Study: 06/14/2017 Ht: 5 4 Wt: 185 lb 8 oz Consulting Physician: BLADE MEDICATIONS: ASPIRIN, LOVENOX, TORADOL, NITROSTAT, ZOFRAN, ZANAFLEZ, DESYREL HISTORY: 46 YEAR OLD FEMALE WITH COMPLAINTS OF CHEST PAIN. MEDICAL HISTORY: BIPOLOR DISORDER, HYPERTENSION, PSEUDOSEIZURE, APPENDECTOMY, HYSTERECTOMY PHYSICIAL EXAMINATION: RESTING B.P.: 161/99 RESTING H.R.: 71 RESTING EKG: NORMAL PROTOCOL: KIAN ROUTINE EXERCISE TIME: 3:00 MAXIMUM HEART RATE: 148 85 % OF PREDICTED B.P. AT PEAK STRESS: 170/97 H.R. AT 1 MINUTE POST EXERCISE: 123 IMPRESSION: KIAN ROUTINE STOPPED DUE TO PATIENT FATIGUE AND TARGET HEART RATE REACHED. NO SUPRAVENTRICULAR TACHYCARDIA. NO VENTRICULAR TACHYCARDIA. NO PREMATURE VENTRICULAR COMPLEXES. CHEST PAIN SIX OUT OF TEN AR PEAK EXERCISE. NO ST CHANGE WITH STRESS. NORMAL STRESS TEST.
[2017-06-14 13:34] LABS: CKMB Creatine Kinase MB 1.7 ng/ml (0.3-4.0)
--- NOTE | 2017-06-14 15:46 | P.DS ---
Admission Date: 06/13/17 Discharge Date: 06/14/17 Disposition: ROUTINE DISCHARGE Discharge Condition: GOOD Reason for Admission: chest pain Consultations: cardiology Procedures: stress test Brief History of Present Illness: Ms Hines is a 46 years old woman with history of bipolar disorder, pseudoseizures, migraines, who came to the hospital complaining chest pain. Her pain is substernal, constant, dull, no radiated, associated with headache. She has had nausea as well. The pain last for several hours, and was exacerbated with deep breath movements. She has had this kind of pain in the past but never last as long as this time. Her headache is mostly on frontal radiated to occipital area. The light was making it worse. No history of fever or chills. Headache similar to previous episodes of migraines. Hospital Course: Patient was admitted to telemetry.She had serial enzymes done which were negative.She also had a negative stress test.Her chest pain which was thought to be musculoskeletal given its characteristics improved significantly and she was discharged home in a stable condition. Vital Signs/Physical Exam: Temp Pulse Resp BP Pulse Ox 97.0 F 72 18 151/87 H 98 06/14/17 12:00 06/14/17 12:00 06/14/17 12:00 06/14/17 12:00 06/14/17 12:00 General: Alert, In no apparent distress, Oriented x3 HEENT: Atraumatic, Normocephalic Neck: Supple, JVD not distended, No Thyromegaly, No LAD Respiratory: Clear to auscultation bilaterally, Normal air movement Cardiovascular: No edema, Normal pulses, Regular rate/rhythm, Normal S1 S2 Gastrointestinal: Normal bowel sounds, Soft and benign, Non-distended, W/out hepatosplenomegaly, No ascites, No tenderness, No masses, No rebound, No guarding Musculoskeletal: No clubbing, No swelling Neurological: Normal speech, Normal strength at 5/5 x4 extr, Normal tone, Sensation intact Laboratory Data at Discharge: WBC 7.9 K/uL (4.3-10.9) 06/13/17 13:45 Hgb 13.5 g/dL (12.0-15.0) 06/13/17 13:45 Hct 39.5 % (36.0-45.0) 06/13/17 13:45 Plt Count 221 K/uL (152-406) 06/13/17 13:45 PT 10.9 SECONDS (9.5-12.5) 06/13/17 13:45 INR 0.92 06/13/17 13:45 APTT 28.1 SECONDS (24.3-36.9) 06/13/17 13:45 Sodium 136 mEq/L (135-145) 06/13/17 13:45 Potassium 3.6 mEq/L (3.6-5.0) 06/13/17 13:45 BUN 13 mg/dL (6-20) 06/13/17 13:45 Creatinine 0.99 mg/dL (0.44-1.00) 06/13/17 13:45 Glucose 94 mg/dL (65-120) 06/13/17 13:45 Magnesium 1.8 mg/dL (1.8-2.5) 06/13/17 13:45 Total Bilirubin 0.4 mg/dL (0.3-1.2) 06/13/17 13:45 AST 31 IU/L (10-42) 06/13/17 13:45 ALT 37 IU/L (10-60) 06/13/17 13:45 Alkaline Phosphatase 71 IU/L (42-121) 06/13/17 13:45 Troponin I < 0.03 ng/mL (<0.03) 06/14/17 12:25 B-Natriuretic Peptide 209 pg/ml (<=100) H 06/13/17 13:45 Home Medications: Citalopram Hydrobromide [Citalopram HBr] 40 mg PO BEDTIME #0 09/10/12 Aripiprazole 1 tab PO BEDTIME 06/13/17 Duloxetine HCl [Cymbalta] 1 tab PO BEDTIME 06/13/17 Lorazepam 1 tab PO BID 06/13/17 Tizanidine [Zanaflex*] 4 mg PO BID PRN 06/13/17 Trazodone HCl 1 tab PO BEDTIME 06/13/17 Ziprasidone HCl [Geodon] 1 cap PO BEDTIME 06/13/17 Patient Discharge Instructions: follow up with PCP in one week. return to ED with new or worsening symptoms Diet: AHA Activity: Ad jessie Physician Review: Patient Assessed, Agree with Above Assessment and Plan Time spent managing pt's care (in minutes): 25
[2017-06-14 17:31] VITALS: BP 149/80; TEMP 97.4
[2017-06-14] MEDS ORDERED: TRAZODONE 50 MG TABLET PO SCH (21:00)
== END 2017-06-14 16:44 | disposition home or self-care (01) ==
LOC: ER 12:38 → ERHOLD 17:54 → 2ND 19:50
PROVIDERS: ADMIT Internal Medicine; ATTEND Internal Medicine
DX: R07.9 Chest pain, unspecified (principal); R51 Headache; F31.9 Bipolar disorder, unspecified; F17.210 Nicotine dependence, cigarettes, uncomplicated
CPT/HCPCS: 36415; 71045; 71275; 74175; 80048; 80076; 81003; 81025; 82550; 82553; 83735; 83880; 84484; 85025; 85610; 85730; 93005; 93017; 96372; 99285; G0378; J0360; J1650; J2270; J2405; J3010; J7030; Q9967

== ENCOUNTER 2017-11-20 09:10 | Emergency (ER) | payer OTHER ==
--- OUTSIDE RECORDS SUMMARY | 2017-11-20 09:12 | XMS REPORT ---
[...] End Status Dosage System Date Date Zanaflex [facility] [id number] 4 MG Orally Active 1 tablet twice a day as needed Celexa [facility] 43598169374 40 MG Orally Active 1 tablet Once a day Lorazepam [facility] [id number] 2 MG Orally Once Active 1 tablet a day at bedtime as needed Trazodone HCl [facility] [id number] 100 MG Orally Active 3 times a TID day Urocit-K 10 [facility] [id number] 10 MEQ (1080 MG) Active 1 tablet Orally daily with meals Results Name Result Date Reference Range Unit Abnormality Flag URINALYSIS AUTO W/O SCOPE (86273) ----LOY trace [id number] ----NIT neg [id number] ----PROTEIN neg [id number] ----pH 6.0 [id number] ----GLUCOSE neg [id number] ----KETONES neg [id number] ----SPECIFIC GRAVITY 1.025 [id number] ----BLO 1+ [id number] Summary Purpose eClinicalWorks Submission
[2017-11-20] MEDS ORDERED: IPRATROPIUM BROM 0.5MG/2.5ML ONE (09:53)
[2017-11-20] MEDS ORDERED: ALBUTEROL 2.5 MG/3 ML NEB SOL ONE (09:53)
[2017-11-20] MEDS ORDERED: HYDROCODONE/APAP 7.5/325 MG TAB ONE (10:24)
[2017-11-20] MEDS ORDERED: predniSONE 20 MG TAB ONE (10:24)
[2017-11-20 10:34] LABS: Absolute Monocytes 0.5 K/uL (0.1-1.3); Absolute Neutrophil 4.5 K/uL (1.8-8.0); Eosinophils % 1.4 % (0-4.4); Hematocrit 43.3 % (36.0-45.0); Lymphocytes % 27.7 % (15.3-44.8); MCH 32.3 pg (27.0-35.0); MCV 90.6 fL (80-100); MPV 8.9 fL (7.6-11.3); Monocytes % 6.9 % (3.3-12.3); RBC Red Blood Cell Count 4.78 M/uL (3.86-4.86)
[2017-11-20 10:57] LABS: Potassium 3.6 mmol/L (3.5-5.1)
--- NOTE | 2017-11-20 11:45 | RAD REPORT ---
EXAM DESCRIPTION: Tiffany Lopez (2 Views)11/20/2017 11:11 am CLINICAL HISTORY: Cough COMPARISON: June 2017 FINDINGS: The lungs appear clear of acute infiltrate. The heart is normal size IMPRESSION: No acute abnormalities displayed
--- NOTE | 2017-11-20 11:52 | ER ---
Nurse's Notes [facility] Name: Rosario Hines Age: 47 yrs Sex: Female : 1970 Arrival Date: 11/20/2017 Time: 09:15 Bed 23 Private MD: Rufina Maradiaga H Diagnosis: Chest pain on breathing;Cough Presentation: 11/20 09:18 Presenting complaint: Patient states: COUGH AND "LUNG PAIN" FOR TWO WEEKS. Transition bp of care: patient was not received from another setting of care. Onset of symptoms is unknown. Risk Assessment: Do you want to hurt yourself or someone else? Patient reports no desire to harm self or others. Initial Sepsis Screen: Does the patient meet any 2 criteria? No. Patient's initial sepsis screen is negative. Does the patient have a suspected source of infection? No. Patient's initial sepsis screen is negative. Care prior to arrival: None. 09:18 Method Of Arrival: Ambulatory bp 09:18 Acuity: LANETTE 4 bp Triage Assessment: 09:20 General: Appears in no apparent distress. comfortable, Behavior is calm, cooperative, bp appropriate for age. Pain: Complains of pain in "LUNGS". Respiratory: Reports cough that is pain with respiration Onset: The symptoms/episode began/occurred 2 WEEKS, the patient has mild shortness of breath. 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 - Social history:: Smoking status: Patient uses tobacco products, smokes one pack cigarettes per day. - Ebola Screening: : Patient negative for fever greater than or equal to 101.5 degrees Fahrenheit, and additional compatible Ebola Virus Disease symptoms Patient denies exposure to infectious person Patient denies travel to an Ebola-affected area in the 21 days before illness onset No symptoms or risks identified at this time. Screenin:36 Abuse screen: Denies threats or abuse. Nutritional screening: No deficits noted. tw2 Tuberculosis screening: No symptoms or risk factors identified. Fall Risk None identified. Assessment: 09:35 General: Appears in no apparent distress. Behavior is cooperative. General: Smells of tw2 cigarette smoke. Pain: Complains of pain in abdomen and "when i breathe". Neuro: Level of Consciousness is awake, alert, obeys commands, Oriented to person, place, time, situation. Cardiovascular: Heart tones S1 S2 Capillary refill < 3 seconds Patient's skin is warm and dry. Rhythm is regular. Respiratory: Reports pain with movement since "for 2 weeks now" pain with respiration Airway is patent Respiratory effort is even, unlabored, Respiratory pattern is regular, symmetrical, Breath sounds are clear bilaterally. GI: Abdomen is flat, Bowel sounds present X 4 quads. Reports lower abdominal pain, upper abdominal pain. : No signs and/or symptoms were reported regarding the genitourinary system. EENT: No signs and/or symptoms were reported regarding the EENT system. Derm: No signs and/or symptoms reported regarding the dermatologic system. Musculoskeletal: Circulation, motion, and sensation intact. Range of motion: intact in all extremities. 10:39 Reassessment: Patient appears in no apparent distress at this time. Patient and/or tw2 family updated on plan of care and expected duration. Pain level reassessed. Patient is alert, oriented x 3, equal unlabored respirations, skin warm/dry/pink. 11:04 Reassessment: pt is in XRAY at this time, unavailable for vs. tw2 12:12 Reassessment: Patient appears in no apparent distress at this time. Patient and/or tw2 family updated on plan of care and expected duration. Pain level reassessed. Patient is alert, oriented x 3, equal unlabored respirations, skin warm/dry/pink. Vital Signs: 09:20 BP 145 / 107; Pulse 83; Resp 16; Temp 97.8; Pulse Ox 99% ; Weight 81.65 kg; Height 5 bp ft. 4 in. (162.56 cm); 10:38 BP 159 / 115; Pulse 102; Resp 19; Pulse Ox 97% on R/A; tw2 11:26 BP 158 / 95; Pulse 95; Resp 17; Pulse Ox 97% on R/A; tw2 09:20 Body Mass Index 30.90 (81.65 kg, 162.56 cm) bp ED Course: 09:15 Patient arrived in ED. mr 09:15 MaradiagaTomiritoJohnnie is Private Physician. mr 09:19 Triage completed. bp 09:20 Arm band placed on. bp 09:35 Marily Driver, RN is Primary Nurse. tw2 09:35 Bed in low position. Call light in reach. computer support technician on. Pulse ox on. NIBP on. tw2 09:37 Felicity [facility]-C [facility]. kb 09:37 Delmar Holland MD is Attending Physician. kb 10:21 Missed attempt(s): 22 gauge in right antecubital area. Bleeding controlled, band aid tw2 applied, catheter tip intact. Missed attempt(s): 22 gauge in right hand. notified charge nurse Lorraine for help with iv line. Bleeding controlled, band aid applied, catheter tip intact. 10:22 Initial lab(s) drawn, by me, sent to lab. Inserted saline lock: 22 gauge in right aa5 wrist, using aseptic technique. Missed attempt(s): 22 gauge in left forearm. Bleeding controlled, band aid applied, catheter tip intact. 11:07 Patient moved to radiology via wheelchair. jb2 11:10 X-ray completed. Patient tolerated procedure well. Patient moved back from radiology. jb2 11:11 Chest Pa And Lat (2 Views) XRAY In Process Unspecified. EDMS 11:51 Maradiaga AlexaBisi is Referral Physician. kb 12:11 No provider procedures requiring assistance completed. IV discontinued, intact, tw2 bleeding controlled, No redness/swelling at site. Pressure dressing applied. Administered Medications: 09:55 Drug: DuoNeb (3:1) (2.5 mg - 0.5 mg) 3 ml Route: Nebulizer; tw2 10:38 Follow up: Response: No adverse reaction; No change in condition tw2 10:19 Drug: [place] (7.5 mg-325 mg) 1 tabs Route: PO; tw2 11:27 Follow up: Response: No adverse reaction; No change in condition; No change in tw2 condition per pt, "and now i have a migraine", provider notified. 10:19 Drug: predniSONE 40 mg Route: PO; tw2 11:52 Follow up: Response: No adverse reaction tw2 11:50 Drug: TORadol 60 mg Route: IM; Site: right gluteus; tw2 12:11 Follow up: Response: No adverse reaction tw2 Outcome: 11:51 Discharge ordered by MD. luu 12:11 Discharged to home ambulatory. tw2 12:11 Condition: stable 12:11 Discharge instructions given to patient, Instructed on discharge instructions, follow up and referral plans. medication usage, Demonstrated understanding of instructions, follow-up care, medications, Prescriptions given X 3. 12:12 Patient left the ED. tw2 Signatures: Dispatcher [employer] EDMS Felicity Qiu, ORTHOPEDICS TEACHER-C ORTHOPEDICS TEACHER-Ckb BereketNeha mr Healy, David jb2 Lorraine Bobo, RN RN aa5 Marily Driver RN RN tw2 Delmer Mcfadden, RN RN bp
--- NOTE | 2017-11-20 11:52 | EDPHYS ---
Physician Documentation [facility] Name: Rosario Hines Age: 47 yrs Sex: Female : 1970 Arrival Date: 11/20/2017 Time: 09:15 Bed 23 Private MD: Rufina Maradiaga H ED Physician Delmar Holland HPI: 11/20 11:02 This 47 yrs old Female presents to ER via Ambulatory with complaints of kb Breathing Difficulty. 11:02 The patient or guardian reports cough, that is intermittent, described as moderate, kb with no sputum. Onset: The symptoms/episode began/occurred 2 week(s) ago. Severity of symptoms: At their worst the symptoms were moderate, in the emergency department the symptoms are unchanged. Modifying factors: The symptoms are alleviated by nothing, the symptoms are aggravated by nothing. Associated signs and symptoms: Pertinent positives: chest pain, with cough, with movement, with breathing, Pertinent negatives: diarrhea, ear ache, fever, nausea, rhinorrhea, sore throat, vomiting. The patient has not experienced similar symptoms in the past. The patient has not recently seen a physician. Pt reports lung pain that started with cough 2 weeks ago. States the pain is getting worse. Pain is to lower anterior chest bilaterally (worse on right) and radiates around to back. Pain worse with inspiration, cough, movement. . 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 - Social history:: Smoking status: Patient uses tobacco products, smokes one pack cigarettes per day. - Ebola Screening: : Patient negative for fever greater than or equal to 101.5 degrees Fahrenheit, and additional compatible Ebola Virus Disease symptoms Patient denies exposure to infectious person Patient denies travel to an Ebola-affected area in the 21 days before illness onset No symptoms or risks identified at this time. ROS: 11:02 Constitutional: Negative for fever, chills, and weight loss, ENT: Negative for injury, kb pain, and discharge, Neck: Negative for injury, pain, and swelling, Abdomen/GI: Negative for abdominal pain, nausea, vomiting, diarrhea, and constipation, Back: Negative for injury and pain, : Negative for injury, bleeding, discharge, and swelling, MS/Extremity: Negative for injury and deformity, Skin: Negative for injury, rash, and discoloration, Neuro: Negative for headache, weakness, numbness, tingling, and seizure. 11:02 Cardiovascular: Positive for chest pain, with cough, with movement, Negative for edema, orthopnea, palpitations, paroxysmal nocturnal dyspnea. 11:02 Respiratory: Positive for cough, pleurisy, Negative for dyspnea on exertion, hemoptysis, orthopnea, shortness of breath, sputum production, wheezing. Exam: 11:01 Constitutional: This is a well developed, well nourished patient who is awake, alert, kb and in no acute distress. Head/Face: Normocephalic, atraumatic. Cardiovascular: Regular rate and rhythm with a normal S1 and S2. No gallops, murmurs, or rubs. Normal PMI, no JVD. No pulse deficits. Abdomen/GI: Soft, non-tender, with normal bowel sounds. No distension or tympany. No guarding or rebound. No evidence of tenderness throughout. Back: No spinal tenderness. No costovertebral tenderness. Full range of motion. Skin: Warm, dry with normal turgor. Normal color with no rashes, no lesions, and no evidence of cellulitis. MS/ Extremity: Pulses equal, no cyanosis. Neurovascular intact. Full, normal range of motion. Neuro: Awake and alert, GCS 15, oriented to person, place, time, and situation. Cranial nerves II-XII grossly intact. Motor strength 5/5 in all extremities. Sensory grossly intact. Cerebellar exam normal. Normal gait. 11:01 Chest/axilla: Inspection: normal, Palpation: tenderness, that is moderate, of the left lateral posterior chest and right lateral posterior chest, right lower ribs. 11:01 Respiratory: the patient does not display signs of respiratory distress, Respirations: normal, Breath sounds: rhonchi, that are mild, are heard diffusely. Vital Signs: 09:20 BP 145 / 107; Pulse 83; Resp 16; Temp 97.8; Pulse Ox 99% ; Weight 81.65 kg; Height 5 bp ft. 4 in. (162.56 cm); 10:38 BP 159 / 115; Pulse 102; Resp 19; Pulse Ox 97% on R/A; tw2 11:26 BP 158 / 95; Pulse 95; Resp 17; Pulse Ox 97% on R/A; tw2 09:20 Body Mass Index 30.90 (81.65 kg, 162.56 cm) bp MDM: 09:37 Patient medically screened. kb 11:00 Data reviewed: vital signs, nurses notes. Data interpreted: Pulse oximetry: on room air kb is 97 %. Interpretation: normal. 11:51 Counseling: I had a detailed discussion with the patient and/or guardian regarding: the kb historical points, exam findings, and any diagnostic results supporting the discharge/admit diagnosis, lab results, radiology results, the need for outpatient follow up, a family practitioner, to return to the emergency department if symptoms worsen or persist or if there are any questions or concerns that arise at home. 11/20 09:43 Order name: CBC with Diff; Complete Time: 10:52 kb 11/20 09:43 Order name: Basic Metabolic Panel; Complete Time: 11:00 kb 11/20 09:37 Order name: Chest Pa And Lat (2 Views) XRAY; Complete Time: 11:49 kb 11/20 08:43 Order name: D-Dimer; Complete Time: 10:52 kb 11/20 09:43 Order name: IV Start; Complete Time: 10:20 kb 11/20 11:00 Order name: Vital Signs; Complete Time: 11:27 kb Administered Medications: 09:55 Drug: DuoNeb (3:1) (2.5 mg - 0.5 mg) 3 ml Route: Nebulizer; tw2 10:38 Follow up: Response: No adverse reaction; No change in condition tw2 10:19 Drug: [place] (7.5 mg-325 mg) 1 tabs Route: PO; tw2 11:27 Follow up: Response: No adverse reaction; No change in condition; No change in tw2 condition per pt, "and now i have a migraine", provider notified. 10:19 Drug: predniSONE 40 mg Route: PO; tw2 11:52 Follow up: Response: No adverse reaction tw2 11:50 Drug: TORadol 60 mg Route: IM; Site: right gluteus; tw2 12:11 Follow up: Response: No adverse reaction tw2 Disposition: 11/20/17 11:51 Discharged to Home. Impression: Chest pain on breathing, Cough. - Condition is Stable. - Discharge Instructions: Costochondritis, [id number], Cough, Adult, [id number]. - Prescriptions for Prednisone 20 mg Oral Tablet - take 1 tablet by ORAL route once daily for 5 days; 5 tablet. Diclofenac Sodium 75 mg Oral Tablet, Delayed Release (E.C.) - take 1 tablet by ORAL route 2 times per day As needed; 30 tablet. Albuterol Sulfate 90 mcg/actuation - inhale 1-2 puff by INHALATION route every 4-6 hours; 1 Inhaler. - Medication Reconciliation Form, Thank You Letter, Antibiotic Education, Prescription Opioid Use form. - Follow up: Emergency Department; When: As needed; Reason: Worsening of condition. Follow up: Rufina Maradiaga DO; When: 2 - 3 days; Reason: Recheck today's complaints, Continuance of care, Re-evaluation by your physician. Addendum: 11/21/2017 18:06 Co-signature as Attending Physician, Delmar Holland MD. g s Signatures: Dispatcher [employer] EDMS Felicity Qiu, CHARISSE-C MD SENIOR RESEARCH SCIENTIST-Marily Venegas RN RN tw2 Delmar Holland MD MD Delmer Mcfadden, RN RN bp Corrections: (The following items were deleted from the chart) 11/20 12:12 11:51 11/20/2017 11:51 Discharged to Home. Impression: Chest pain on breathing; Cough. tw2 Condition is Stable. Forms are Medication Reconciliation Form, Thank You Letter, Antibiotic Education, Prescription Opioid Use. Follow up: Emergency Department; When: As needed; Reason: Worsening of condition. Follow up: Rufina Maradiaga; When: 2 - 3 days; Reason: Recheck today's complaints, Continuance of care, Re-evaluation by your physician. kb
[2017-11-20] MEDS ORDERED: KETOROLAC 30 MG/ML INJ ONE (11:56)
[2017-11-20 12:17] VITALS: TEMP 97.8
[2017-11-20 12:18] VITALS: O2SAT 97
[2017-11-20 12:19] VITALS: BP 158/95
== END 2017-11-20 12:12 | disposition home or self-care (01) ==
LOC: ER 09:10
DX: R05 Cough (principal); I10 Essential (primary) hypertension; F17.210 Nicotine dependence, cigarettes, uncomplicated; F31.9 Bipolar disorder, unspecified
CPT/HCPCS: 36415; 71046; 80048; 85025; 85379; 94640; 96372; 99285; J7512

== ENCOUNTER 2017-11-23 07:17 | Emergency (ER) | payer OTHER ==
--- OUTSIDE RECORDS SUMMARY | 2017-11-23 07:19 | XMS REPORT ---
[...] End Status Dosage System Date Date Zanaflex [facility] 33228896471 4 MG Orally Active 1 tablet twice a day as needed Celexa [facility] 22210025475 40 MG Orally Active 1 tablet Once a day Lorazepam [facility] 02408338262 2 MG Orally Once Active 1 tablet a day at bedtime as needed Trazodone HCl [facility] 91073981415 100 MG Orally Active 3 times a TID day Urocit-K 10 [facility] [id number] 10 MEQ (1080 MG) Active 1 tablet Orally daily with meals Results Name Result Date Reference Range Unit Abnormality Flag URINALYSIS AUTO W/O SCOPE (96568) ----LOY trace [id number] ----NIT neg [id number] ----PROTEIN neg [id number] ----pH 6.0 [id number] ----GLUCOSE neg [id number] ----KETONES neg [id number] ----SPECIFIC GRAVITY 1.025 [id number] ----BLO 1+ [id number] Summary Purpose eClinical[employer] Submission
[2017-11-23] MEDS ORDERED: KETOROLAC 30 MG/ML INJ ONE (08:33)
[2017-11-23] MEDS ORDERED: NA CHLORIDE 0.9% 1,000 ML ONE (08:33)
[2017-11-23 08:59] LABS: Urine Blood 2+ (NEG); Urine Glucose NEGATIVE (NEG); Urine Protein NEGATIVE (NEG); Urine pH 6.5 (5.0-7.0)
[2017-11-23 09:16] LABS: Absolute Lymphocytes (CBC) 1.6 K/uL (0.7-4.9); Absolute Monocytes 0.5 K/uL (0.1-1.3); Absolute Neutrophil 5.8 K/uL (1.8-8.0); Basophils % 0.5 % (0-1.3); Eosinophils % 0.7 % (0-4.4); Lymphocytes % 19.9 % (15.3-44.8); MCH 31.7 pg (27.0-35.0); MCV 89.5 fL (80-100); MPV 7.7 fL (7.6-11.3); Monocytes % 6.7 % (3.3-12.3); RBC Red Blood Cell Count 4.47 M/uL (3.86-4.86)
--- NOTE | 2017-11-23 09:21 | RAD REPORT ---
EXAM DESCRIPTION: CT - Abdomen Pelvis W Contrast - 11/23/2017 8:52 am CLINICAL HISTORY: Abdominal pain, patient history of left upper quadrant pain for a month with prior hysterectomy and appendectomy COMPARISON: CT imaging April 2016 TECHNIQUE: Biphasic, helical CT imaging of the abdomen and pelvis was performed following 100 ml non -ionic IV contrast. No oral contrast. All CT scans are performed using dose optimization technique as appropriate and may include automated exposure control or mA/KV adjustment according to patient size. FINDINGS: No suspicious findings in the lung bases. Minimal scarring or atelectasis changes are pres ent. The liver, spleen, and pancreas show no suspicious findings. Gallbladder and biliary tree are also wi thout suspicious finding. Symmetric renal function is seen with no hydronephrosis or suspicious renal mass. Uterus is absent. O varies are absent or atrophic. No adnexal mass. No dilated bowel loops or bowel wall thickening. No free air, free fluid or inflammatory stranding. No hernia, mass or bulky lymphadenopathy. The urinary bladder is without significant finding. No adr enal abnormality. No suspicious bony findings. IMPRESSION: Contrast enhanced CT abdomen and pelvis showing no significant or suspicious finding. N o significant change from comparison.
[2017-11-23 09:34] LABS: Albumin 3.3 g/dL (3.4-5.0); Bilirubin Direct 0.2 mg/dL (0-0.2); Bilirubin Total 0.4 mg/dL (0.2-1.0); Potassium 3.7 mmol/L (3.5-5.1); Protein, Total 6.1 g/dL (6.4-8.2)
[2017-11-23] MEDS ORDERED: HYDROCODONE/APAP 5/325 MG TAB ONE (09:53)
--- NOTE | 2017-11-23 09:58 | EDPHYS ---
Physician Documentation [facility] Name: Rosario Hines Age: 47 yrs Sex: Female : 1970 Arrival Date: 11/23/2017 Time: 07:20 Bed 14 Private MD: Rufina Maradiaga H ED Physician Danny Romo HPI: 11/23 09:00 This 47 yrs old Female presents to ER via Ambulatory with complaints of pm1 Abdominal Pain, Back Pain. 09:00 The patient presents with abdominal pain in the left upper quadrant. Onset: The pm1 symptoms/episode began/occurred 1 month(s) ago. The symptoms do not radiate. Associated signs and symptoms: Pertinent negatives: nausea, vomiting, and diarrhea, dysuria, fever. The symptoms are described as sharp. Modifying factors: The symptoms are alleviated by nothing, the symptoms are aggravated by nothing. Severity of pain: in the emergency department the pain is actually worse. The patient has been recently seen by a physician: The patient has been recently seen at the [facility] Emergency Department, this week, for unrelated complaints, Cough. 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 - Social history:: Smoking status: Patient uses tobacco products, smokes one pack cigarettes per day. - Ebola Screening: : Patient negative for fever greater than or equal to 101.5 degrees Fahrenheit, and additional compatible Ebola Virus Disease symptoms Patient denies exposure to infectious person Patient denies travel to an Ebola-affected area in the 21 days before illness onset No symptoms or risks identified at this time. ROS: 09:00 Constitutional: Negative for fever, chills, and weight loss, Eyes: Negative for injury, pm1 pain, redness, and discharge, ENT: Negative for injury, pain, and discharge, Neck: Negative for injury, pain, and swelling, Cardiovascular: Negative for chest pain, palpitations, and edema, Respiratory: Negative for shortness of breath, cough, wheezing, and pleuritic chest pain. 09:00 Back: Negative for injury and pain, : Negative for injury, bleeding, discharge, and swelling, MS/Extremity: Negative for injury and deformity, Skin: Negative for injury, rash, and discoloration, Neuro: Negative for headache, weakness, numbness, tingling, and seizure. 09:00 Abdomen/GI: Positive for abdominal pain, Negative for nausea, vomiting, and diarrhea. Exam: 09:00 Constitutional: This is a well developed, well nourished patient who is awake, alert, pm1 and in no acute distress. Head/Face: Normocephalic, atraumatic. Eyes: Pupils equal round and reactive to light, extra-ocular motions intact. Lids and lashes normal. Conjunctiva and sclera are non-icteric and not injected. Cornea within normal limits. Periorbital areas with no swelling, redness, or edema. ENT: Nares patent. No nasal discharge, no septal abnormalities noted. Tympanic membranes are normal and external auditory canals are clear. Oropharynx with no redness, swelling, or masses, exudates, or evidence of obstruction, uvula midline. Mucous membranes moist. Neck: Trachea midline, no thyromegaly or masses palpated, and no cervical lymphadenopathy. Supple, full range of motion without nuchal rigidity, or vertebral point tenderness. No Meningismus. Chest/axilla: Normal chest wall appearance and motion. Nontender with no deformity. No lesions are appreciated. Cardiovascular: Regular rate and rhythm with a normal S1 and S2. No gallops, murmurs, or rubs. Normal PMI, no JVD. No pulse deficits. Respiratory: Lungs have equal breath sounds bilaterally, clear to auscultation and percussion. No rales, rhonchi or wheezes noted. No increased work of breathing, no retractions or nasal flaring. 09:00 Back: No spinal tenderness. No costovertebral tenderness. Full range of motion. Skin: Warm, dry with normal turgor. Normal color with no rashes, no lesions, and no evidence of cellulitis. MS/ Extremity: Pulses equal, no cyanosis. Neurovascular intact. Full, normal range of motion. 09:00 Abdomen/GI: Inspection: abdomen appears normal, Bowel sounds: normal, Palpation: mild abdominal tenderness, in the right upper quadrant and left upper quadrant, mass, is not appreciated, rebound tenderness, is not appreciated. 09:00 Neuro: Orientation: is normal, Motor: is normal, Sensation: is normal, no obvious gross deficits, Gait: is steady, at a normal pace, without difficulty. Vital Signs: 07:42 BP 187 / 102; Pulse 53; Resp 20; Temp 97.8; Pulse Ox 99% ; Weight 81.65 kg; Height 5 bp ft. 4 in. (162.56 cm); 09:15 BP 179 / 97; Pulse 53; Resp 16; Pulse Ox 100% ; bp 10:15 BP 173 / 94; Pulse 51; Resp 16; Pulse Ox 100% ; bp 07:42 Body Mass Index 30.90 (81.65 kg, 162.56 cm) bp MDM: 07:31 Patient medically screened. pm1 09:56 Data reviewed: vital signs. Data interpreted: Pulse oximetry: on room air is 100 %. pm1 Interpretation: normal. Counseling: I had a detailed discussion with the patient and/or guardian regarding: the historical points, exam findings, and any diagnostic results supporting the discharge/admit diagnosis, lab results, radiology results, the need for outpatient follow up, to return to the emergency department if symptoms worsen or persist or if there are any questions or concerns that arise at home. 11/23 07:32 Order name: Basic Metabolic Panel; Complete Time: 09:39 pm1 11/23 07:32 Order name: CBC with Diff; Complete Time: 09:24 pm1 11/23 07:32 Order name: Creatinine for Radiology; Complete Time: 09:39 pm1 11/23 07:32 Order name: Hepatic Function; Complete Time: :39 pm1 11/23 07:32 Order name: Lipase; Complete Time: 09:39 pm1 11/23 07:49 Order name: Urine Dipstick--Ancillary (enter results); Complete Time: 09:24 eb 11/23 07:32 Order name: IV Saline Lock; Complete Time: 09:28 pm1 11/23 07:32 Order name: Labs collected and sent; Complete Time: 09:28 pm1 11/23 07:32 Order name: Urine Dipstick-Ancillary (obtain specimen); Complete Time: 08:09 pm1 11/23 07:48 Order name: CT Abd/Pelvis - W/Contrast: IV contrast only; Complete Time: 09:24 pm1 Administered Medications: 08:30 Drug: NS 0.9% 1000 ml Route: IV; Rate: 1000 ml; Site: left hand; bp 10:32 Follow up: IV Status: Completed infusion; IV Intake: 1000ml bp 08:30 Drug: TORadol 30 mg Route: IVP; Site: left hand; bp 09:27 Follow up: Response: Pain is decreased bp 09:49 Drug: [place] 5 mg-325 mg 1 tabs Route: PO; bp 10:31 Follow up: Response: Pain is decreased bp Disposition: 11/23/17 09:57 Discharged to Home. Impression: Unspecified abdominal pain. - Condition is Stable. - Discharge Instructions: Abdominal Pain, Adult. - Prescriptions for Bentyl 20 mg Oral Tablet - take 1 tablet by ORAL route every 6 hours As needed; 20 tablet. - Medication Reconciliation Form, Thank You Letter, Antibiotic Education form. - Follow up: Emergency Department; When: As needed; Reason: Worsening of condition. Follow up: Rufina Maradiaga DO; When: 2 - 3 days; Reason: Recheck today's complaints, Continuance of care, Re-evaluation by your physician. - Problem is new. - Symptoms have improved. Addendum: 11/24/2017 13:39 Co-signature as Attending Physician, Danny Romo MD I agree with the assessment and k dr plan of care. Signatures: Dispatcher [employer] EDKS Danny Romo MD MD [facility] Patrice Abdi NP HYDROELECTRIC MACHINERY MECHANIC HELPER pm1 Delmer Mcfadden, RN RN bp Corrections: (The following items were deleted from the chart) 11/23 08:03 07:32 Urine Test ordered. pm1 bp 10:36 09:57 11/23/2017 09:57 Discharged to Home. Impression: Unspecified abdominal pain. bp Condition is Stable. Forms are Medication Reconciliation Form, Thank You Letter, Antibiotic Education, Prescription Opioid Use. Follow up: Emergency Department; When: As needed; Reason: Worsening of condition. Follow up: Rufina Maradiaga; When: 2 - 3 days; Reason: Recheck today's complaints, Continuance of care, Re-evaluation by your physician. Problem is new. Symptoms have improved. pm1
--- NOTE | 2017-11-23 09:58 | ER ---
Nurse's Notes [facility] Name: Rosario Hines Age: 47 yrs Sex: Female : 1970 Arrival Date: 11/23/2017 Time: 07:20 Bed 14 Private MD: Rufina Maradiaga H Diagnosis: Unspecified abdominal pain Presentation: 11/23 07:25 Presenting complaint: Patient states: IT STARTED HURTING HERE (LUQ) A MONTH AGO. bp Transition of care: patient was not received from another setting of care. Onset of symptoms is unknown. Risk Assessment: Do you want to hurt yourself or someone else? Patient reports no desire to harm self or others. Initial Sepsis Screen: Does the patient meet any 2 criteria? No. Patient's initial sepsis screen is negative. Does the patient have a suspected source of infection? No. Patient's initial sepsis screen is negative. Care prior to arrival: None. 07:25 Method Of Arrival: Ambulatory bp 07:25 Acuity: LANETTE 3 bp Triage Assessment: 07:42 General: Appears in no apparent distress. uncomfortable, Behavior is cooperative, bp appropriate for age, anxious. Pain: Complains of pain in left upper quadrant. EENT: No deficits noted. Neuro: Level of Consciousness is awake, alert, obeys commands, Oriented to person, place, time, situation, Appropriate for age. Cardiovascular: Rhythm is sinus bradycardia. Respiratory: Airway is patent Respiratory effort is even, unlabored, Respiratory pattern is regular, symmetrical. GI: Abdomen is non-distended, obese, Bowel sounds present X 4 quads. Abdomen is tender to palpation X 4 quads. : Reports pain in bilateral flank(s). Derm: No deficits noted. Musculoskeletal: Circulation, motion, and sensation intact. Range of motion: intact in all extremities. 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 - Social history:: Smoking status: Patient uses tobacco products, smokes one pack cigarettes per day. - Ebola Screening: : Patient negative for fever greater than or equal to 101.5 degrees Fahrenheit, and additional compatible Ebola Virus Disease symptoms Patient denies exposure to infectious person Patient denies travel to an Ebola-affected area in the 21 days before illness onset No symptoms or risks identified at this time. Screenin:42 Abuse screen: Denies threats or abuse. Denies injuries from another. Nutritional bp screening: No deficits noted. Tuberculosis screening: No symptoms or risk factors identified. Fall Risk None identified. Assessment: 07:42 General: Appears in no apparent distress. uncomfortable, Behavior is cooperative, bp appropriate for age, anxious. General: SEE TRIAGE NOTE.. 09:00 Reassessment: PHLEBOTOMY AT B/S FOR LABS. CT COMPLETED, RESULTS PENDING. bp 09:50 Reassessment: ALL CURRENT ORDERS COMPLETED, RESULTS UNREMARKABLE. IVF INFUSING, DISPO bp PENDING. 10:00 Reassessment: D/C ON HOLD FOR IVF COMPLETION. bp 10:30 Reassessment: PT D/C HOME AMBULATORY WITH FRIEND, DX WITH UNSPECIFIED ABDOMINAL PAIN. bp Vital Signs: 07:42 BP 187 / 102; Pulse 53; Resp 20; Temp 97.8; Pulse Ox 99% ; Weight 81.65 kg; Height 5 bp ft. 4 in. (162.56 cm); 09:15 BP 179 / 97; Pulse 53; Resp 16; Pulse Ox 100% ; bp 10:15 BP 173 / 94; Pulse 51; Resp 16; Pulse Ox 100% ; bp 07:42 Body Mass Index 30.90 (81.65 kg, 162.56 cm) bp ED Course: 07:20 Patient arrived in ED. mr 07:20 Rufina Maradiaga DO is Private Physician. mr 07:31 Patrice Abdi NP is PHCP. pm1 07:37 Delmer Mcfadden, RUI is Primary Nurse. bp 07:39 Triage completed. bp 07:42 Arm band placed on. bp 07:42 Patient has correct armband on for positive identification. Placed in gown. Bed in low bp position. Call light in reach. Side rails up X2. 08:30 Inserted saline lock: 24 gauge in left hand, using aseptic technique. bp 08:33 Danny Romo MD is Attending Physician. pm1 08:35 CT completed. Patient tolerated procedure well. Patient moved to CT via stretcher. jg6 Patient moved back from CT. 08:52 CT Abd/Pelvis - W/Contrast: IV contrast only In Process Unspecified. EDMS 09:00 Inserted saline lock: 22 gauge in right hand, using aseptic technique. bp 09:57 Rufina Maradiaga DO is Referral Physician. pm1 10:30 No provider procedures requiring assistance completed. IV discontinued, intact, bp bleeding controlled, No redness/swelling at site. Pressure dressing applied. Administered Medications: 08:30 Drug: NS 0.9% 1000 ml Route: IV; Rate: 1000 ml; Site: left hand; bp 10:32 Follow up: IV Status: Completed infusion; IV Intake: 1000ml bp 08:30 Drug: TORadol 30 mg Route: IVP; Site: left hand; bp 09:27 Follow up: Response: Pain is decreased bp 09:49 Drug: [place] 5 mg-325 mg 1 tabs Route: PO; bp 10:31 Follow up: Response: Pain is decreased bp Intake: 10:32 IV: 1000ml; Total: 1000ml. bp Outcome: 09:57 Discharge ordered by . pm1 10:35 Discharged to home ambulatory, with friend. bp 10:35 Condition: stable 10:35 Discharge instructions given to patient, Instructed on discharge instructions, follow up and referral plans. medication usage, Demonstrated understanding of instructions, follow-up care, medications, Prescriptions given X 1. 10:36 Patient left the ED. bp Signatures: Dispatcher [employer] EDSD Neha [place] mr Patrice Abdi, SUSTAINABLE COMMUNITIES DESIGNER SUSTAINABLE COMMUNITIES DESIGNER pm1 Delmer Mcafdden, RUI RN Tahira Villanueva jg6 Corrections: (The following items were deleted from the chart) 10:36 09:49 BP 173 / 94; Pulse 51bpm; Resp 16bpm; Pulse Ox 100%; bp bp
[2017-11-23 10:50] VITALS: TEMP 97.8
[2017-11-23 10:51] VITALS: O2SAT 100
[2017-11-23 10:52] VITALS: BP 173/94
== END 2017-11-23 10:36 | disposition home or self-care (01) ==
LOC: ER 07:17
DX: R10.10 Upper abdominal pain, unspecified (principal); I10 Essential (primary) hypertension; F31.9 Bipolar disorder, unspecified; F17.210 Nicotine dependence, cigarettes, uncomplicated
CPT/HCPCS: 36415; 74177; 80048; 80076; 81003; 83690; 85025; 96361; 96374; 99285; J7030; Q9967

== ENCOUNTER 2017-12-19 13:21 | Inpatient (IN) | payer OTHER ==
--- OUTSIDE RECORDS SUMMARY | 2017-12-19 13:26 | XMS REPORT ---
[...] End Status Dosage System Date Date Zanaflex [facility] 64542824348 4 MG Orally Active 1 tablet twice a day as needed Celexa [facility] 65194911938 40 MG Orally Active 1 tablet Once a day Lorazepam [facility] [id number] 2 MG Orally Once Active 1 tablet a day at bedtime as needed Trazodone HCl [facility] 29721791867 100 MG Orally Active 3 times a TID day Urocit-K 10 [facility] 74590703967 10 MEQ (1080 MG) Active 1 tablet Orally daily with meals Results Name Result Date Reference Range Unit Abnormality Flag URINALYSIS AUTO W/O SCOPE (98393) ----LOY trace [id number] ----NIT neg [id number] ----PROTEIN neg [id number] ----pH 6.0 [id number] ----GLUCOSE neg [id number] ----KETONES neg [id number] ----SPECIFIC GRAVITY 1.025 [id number] ----BLO 1+ [id number] Summary Purpose eClinicalWorks Submission
[2017-12-19] MEDS ORDERED: NA CHLORIDE 0.9% 1,000 ML ONE (14:27)
[2017-12-19] MEDS ORDERED: GLUCAGON 1 MG/VIAL ONE (14:27)
[2017-12-19 14:29] LABS: Absolute Lymphocytes (CBC) 2.3 K/uL (0.7-4.9); Absolute Monocytes 0.4 K/uL (0.1-1.3); Eosinophils % 1.2 % (0-4.4); Hematocrit 39.4 % (36.0-45.0); Lymphocytes % 23.3 % (15.3-44.8); MCH 32.1 pg (27.0-35.0); MCV 90.5 fL (80-100); Monocytes % 4.2 % (3.3-12.3); RBC Red Blood Cell Count 4.36 M/uL (3.86-4.86)
[2017-12-19 14:33] LABS: Protime INR 0.94
[2017-12-19 14:45] LABS: ALT/SGPT 70 U/L (12-78); AST/SGOT 31 U/L (15-37); Albumin 3.3 g/dL (3.4-5.0); Alkaline Phosphatase 104 U/L (45-117); BUN Blood Urea Nitrogen 6 mg/dL (7-18); Bicarbonate 27 mmol/L (21-32); Bilirubin Direct < 0.1 mg/dL (0-0.2); Bilirubin Total 0.3 mg/dL (0.2-1.0); Glucose Level 87 mg/dL (74-106); Potassium 3.4 mmol/L (3.5-5.1); Protein, Total 6.2 g/dL (6.4-8.2); Sodium Level 135 mmol/L (136-145)
[2017-12-19] MEDS ORDERED: ACETAMINOPHEN 650MG/RECT SUPP PR PRN (15:43)
[2017-12-19] MEDS ORDERED: ACETAMINOPHEN 500 MG TAB PO PRN (15:43)
[2017-12-19] MEDS ORDERED: ONDANSETRON 4 MG/2 ML VIAL IV PRN (15:43)
--- NOTE | 2017-12-19 15:57 | P.HP ---
Certification for Inpatient Patient admitted to: Inpatient With expected LOS: >2 Midnights Patient will require the following post-hospital care: Other (Psychiatric transfer/referral at discharge once medically stable) Practitioner: I am a practitioner with admitting privileges, knowledge of patient current condition, hospital course, and medical plan of care. Services: Services provided to patient in accordance with Admission requirements found in Title 42 Section 412.3 of the Code of Federal Regulations Patient History Date of Service: 12/19/17 Primary Care Provider: Dr. Maradiaga; PSYC-Dr. Longoria Reason for admission: Altered mental status History of Present Illness: 47-year-old female presented to the emergency room with altered mental status. Patient was brought in by family member. Most of the information came from the and ER physician. reports that the patient was doing well yesterday. Patient with history of depression, hypertension, tobacco abuse, distant suicide attempt 10 years ago. left the patient at home. He reports patient was doing well. The only complaint that he says was a the patient had not been able to sleep well. He also reports that he has a son who is in detention. His court date is coming soon. Patient apparently had been under stress lately. Apparently the patient called the [id number] all and reported that she took medications. [id number] brought patient to the ER for evaluation. The ER patient attended. Heart rate showed bradycardia with a rate as lows in the 40s. Blood pressure also low. CBC unremarkable. Sodium 135, potassium 3.4 , blood sugar 89. Urine drug screen negative. Alcohol level negative. Poison Control called. Recommendations were obtained. Patient admitted to ICU for further evaluation. When I saw the patient ER, she has appeared confused with increase sedation. Vital signs stable but still bradycardic. at bedside. and ER physician unsure what medications have been taken by patient. Medications include metoprolol, clonidine, lisinopril, Celexa, Seroquel, trazodone, Zanaflex. Allergies No Known Allergies Allergy (Verified 06/13/17 21:17) Home medications list reviewed: Yes Home Medications: Citalopram Hydrobromide [Citalopram HBr] 40 mg PO BEDTIME #0 09/10/12 ARIPiprazole [Aripiprazole] 1 tab PO BEDTIME 06/13/17 Duloxetine HCl [Cymbalta] 1 tab PO BEDTIME 06/13/17 LORazepam [Lorazepam] 1 tab PO BID 06/13/17 Tizanidine [Zanaflex*] 4 mg PO BID PRN 06/13/17 Trazodone HCl 1 tab PO BEDTIME 06/13/17 Ziprasidone HCl [Geodon] 1 cap PO BEDTIME 06/13/17 - Past Medical/Surgical History Diabetic: No -: Bipolar disorder -: Pseudoseizures -: Depression with anxiety -: History of suicide attempt 10 years ago -: Migraine headaches -: Hypertension -: Tobacco abuse -: Appendectomy -: Hysterectomy Psychosocial/ Personal History: Patient is of 20 years. She has 3 children. She does not work. - Family History Mother -: Lung disease, Other (see notes) Notes: Bipolar,anxiety - Social History Smoking Status: Heavy Tobacco smoker (>10 cigarettes/day) Alcohol use: No CD- Drugs: No Caffeine use: Yes Place of Residence: Home Review of Systems is unable to be obtained Physical Examination - Physical Exam General: In no apparent distress, Confused, Other (Patient confused with increase sedation. Vital signs stable still with bradycardia and mild hypotension) HEENT: Atraumatic, Normocephalic, Mucous membr. moist/pink Neck: Supple, No Thyromegaly Respiratory: Clear to auscultation bilaterally, Normal air movement Cardiovascular: Abnormal pulses (Sinus bradycardia) Gastrointestinal: Normal bowel sounds, Soft and benign, Non-distended, No masses , No rebound, No guarding Musculoskeletal: No warmth Integumentary: No erythema, No warmth, No cyanosis Neurological: Normal strength at 5/5 x4 extr, Normal tone, Other (Increase sedation noted) - Studies Laboratory Data (last 24 hrs) 12/19/17 14:00: PT 11.1, INR 0.94, APTT 22.0 L 12/19/17 14:00: WBC 9.9, Hgb 14.0, Hct 39.4, Plt Count 223 12/19/17 14:00: Sodium 135 L, Potassium 3.4 L, BUN 6 L, Creatinine 0.70, Glucose 87, Total Bilirubin 0.3, AST 31, ALT 70, Alkaline Phosphatase 104 Assessment and Plan - Plan Impression: Altered mental status secondary to overdose of medication likely suicide attempt with history of bipolar disorder and prior suicide attempt Bradycardia and hypotension likely related to overdose of medication with history of hypertension Bipolar disorder with increased anxiety and stress Tobacco abuse Hyponatremia Hypokalemia Plan: Altered mental status secondary to overdose of medication likely suicide attempt with history of bipolar disorder and prior suicide attempt: Patient will be monitored closely in ICU. Poison Control has been called. Patient likely took hypertensive medication including muscle relaxers and medication for bipolar disorder. Will monitor the patient closely. Patient without AV block. Patient with bradycardia and mild hypertension. Will continue with IV fluids. Will check CT scan of the head and x-ray. Urine drug screen and alcohol level unremarkable. Tylenol level unremarkable. Spoke at length with . desires once the patient is medically stable for transfer to psychiatric facility. This may be involuntary or voluntarily depending on her status. Once medically stable will have mental health officer evaluate. Will contact social science professor help in this process. Will continue to update poison control. Will monitor for any changes. Will hold blood pressure medications and muscle relaxers including medication for bipolar disorder at this time. Poison control recommends no use of Geodon or Haldol at this may exacerbate symptoms. Bradycardia and hypotension likely related to overdose of medication with history of hypertension: Likely related to medication. Patient takes clonidine and metoprolol at home. Will monitor closely. No AV block noted. Will monitor closely. Bipolar disorder with increased anxiety and stress: Continue as above. Patient will need psychiatric evaluation for psychiatric referral/transfer once medically stable. Tobacco abuse: Will address lifestyle modification education. Hyponatremia/hypokalemia: Will continue with IV fluids. Will monitor and replace appropriately. Discharge Plan: Psychiatry Plan to discharge in: 48 Hours - Advance Directives Does patient have a Living Will: No Does patient have a Durable POA for Healthcare: No - Code Status/Comfort Care Code Status Assessed: Yes (Patient is full code.) Time Spent Managing Pts Care (In Minutes): 55
--- NOTE | 2017-12-19 16:09 | RAD REPORT ---
EXAM DESCRIPTION: CT - Head Brain Wo Cont - 12/19/2017 4:00 pm CLINICAL HISTORY: Alteration of awareness/overdose COMPARISON: 2014 TECHNIQUE: Computed axial tomography of the head was obtained. IV contrast was not requested. All CT scans are performed using dose optimization technique as appropriate and may include automated exposure control or mA/KV adjustment according to patient size. FINDINGS: An intracranial bleed is not seen . The ventricles are normal in caliber. No extra-axial fluid collection is noted. Fluid within the sinuses/ mastoids is not seen. IMPRESSION: No acute intracranial abnormality is seen. If patient's symptoms persist MRI of the bra in would be recommended.
--- NOTE | 2017-12-19 16:13 | ER ---
Nurse's Notes [facility] Name: Rosario Hines Age: 47 yrs Sex: Female : 1970 Arrival Date: 12/19/2017 Time: 13:23 Bed 3 Private MD: Rufina Maradiaga H Diagnosis: Bradycardia, unspecified;Intentional overdose Presentation: 12/19 13:37 Presenting complaint: Friend states: She told me she took a handful of her pills. aj1 Reports patient took citalopram, lorazepam and tizanidine, she isn't sure how much she took, she just knows she took a handful approximately 2 hours ago. When asked why she took so many pills patient states "I don't want to talk about it". When asked if she took any other drugs or alcohol patient states "I don't want to talk about it." When asked if she has done anything like this before patient states "I'd rather not say". Transition of care: patient was not received from another setting of care. Onset of symptoms was December 19, 2017 at 11:30. Risk Assessment: Do you want to hurt yourself or someone else? Patient reports no desire to harm self or others. Initial Sepsis Screen: Does the patient meet any 2 criteria? No. Patient's initial sepsis screen is negative. Does the patient have a suspected source of infection? No. Patient's initial sepsis screen is negative. Care prior to arrival: None. 13:37 Method Of Arrival: Wheelchair aj 13:37 Acuity: LANETTE 2 aj1 Triage Assessment: 13:45 General: Appears distressed, comfortable, obese, Behavior is cooperative, drowsy. bp SLUBBER TENDER: 14:54 LMP N/A - Irregular menses bp Historical: - Allergies: 13:43 No Known Allergies; aj1 - Home Meds: 13:43 citalopram oral [Active]; Clonazepam Oral [Active]; Clonidine Oral [Active]; lisinopril aj1 Oral [Active]; Lorazepam Oral [Active]; Metoprolol Tartrate Oral [Active]; Seroquel Oral [Active]; Trazodone Oral [Active]; - PMHx: 13:43 Bipolar disorder; Hypertension; Pseudo-seizure; aj1 - PSHx: 13:43 Hysterectomy; Appendectomy; aj1 - Immunization history:: Flu vaccine is up to date. - Social history:: Smoking status: Patient uses tobacco products, smokes one pack cigarettes per day. - Ebola Screening: : Patient denies travel to an Ebola-affected area in the 21 days before illness onset. - Family history:: not pertinent. - Hospitalizations: : No recent hospitalization is reported. Screenin:45 Abuse screen: Denies threats or abuse. Denies injuries from another. Nutritional bp screening: No deficits noted. Tuberculosis screening: No symptoms or risk factors identified. Fall Risk None identified. Assessment: 13:30 Reassessment: Spoke with [facility]ison control Rep, Neha who states to obtain tox ss work up, give IV fluids, continuous cardiac monitoring, monitor for no less than 12 hours. Pt may experience dizziness, respiratory depression, RIVER EXPEDITION GUIDE depression, bradycardia, serotonin syndrome and/or hyperthermia. 13:45 General: Appears in no apparent distress. comfortable, obese, Behavior is cooperative, bp drowsy. Pain: Denies pain. Neuro: Level of Consciousness is lethargic, Oriented to person, place, time, situation, Appropriate for age. Cardiovascular: Rhythm is sinus bradycardia. Respiratory: Airway is patent Respiratory effort is even, unlabored, shallow, Respiratory pattern is hypoventilation. GI: No signs and/or symptoms were reported involving the gastrointestinal system. : No signs and/or symptoms were reported regarding the genitourinary system. EENT: No deficits noted. Derm: No deficits noted. Musculoskeletal: Circulation, motion, and sensation intact. Range of motion: intact in all extremities. 14:55 Reassessment: PT +LETHARGY AND EXTREME CHEO NOTED ON MONITOR. MD NOTIFIED. bp 15:57 Reassessment: PT TO CT WITH [email or web address]. bp 16:03 Reassessment: PT RETURNED FROM CT. bp 19:00 Reassessment: charting continued in [facility]. jd3 Overdose: 13:30 Patient took UNKNOWN. Overdose occurred 2-3 hours ago. bp Vital Signs: 13:43 BP 140 / 90; Pulse 48; Resp 13; Pulse Ox 97% on R/A; Weight 81.65 kg (R); Height 5 ft. aj1 4 in. (162.56 cm) (R); 14:15 BP 100 / 64; Pulse 39; Resp 19; Pulse Ox 96% ; bp 14:54 BP 103 / 60; Pulse 40; Resp 18; Pulse Ox 96% ; bp 15:15 BP 98 / 69; Pulse 41; Resp 19; Pulse Ox 97% ; bp 16:10 BP 105 / 57; Pulse 50; Resp 13; Pulse Ox 98% ; hl 16:30 BP 115 / 72; Pulse 48; Resp 19; Temp 99.2; Pulse Ox 97% ; hl 13:43 Body Mass Index 30.90 (81.65 kg, 162.56 cm) aj1 ED Course: 13:23 Patient arrived in ED. sb2 13:23 Rufina Maradiaga DO is Private Physician. sb2 13:27 Deysi Silver, RN is Primary Nurse. ss 13:28 Delmer Mcfadden, RN is Primary Nurse. ss 13:30 Arden Hilario MD is Attending Physician. rn 13:30 Safety Checks: Personal items have been removed. PERSONAL EFFECTS GIVEN TO FAMILY The bp door is open or patient has been placed in a hallway bed/chair. A family member and/or friend is present and encouraged to stay. Sitter present at this time. 13:42 Triage completed. aj1 13:43 Arm band placed on Patient placed in an exam room, Patient Patient triaged in bed 2, aj1 Dr. Hilario at bedside during triage. 13:45 Safety Checks: Personal items have been removed. The door is open or patient has been bp placed in a hallway bed/chair. A family member and/or friend is present and encouraged to stay. Sitter present at this time. 13:45 Patient has correct armband on for positive identification. Placed in gown. Bed in low bp position. Call light in reach. Side rails up X2. 14:00 Safety Checks: Personal items have been removed. The door is open or patient has been bp placed in a hallway bed/chair. A family member and/or friend is present and encouraged to stay. Sitter present at this time. 14:10 Inserted saline lock: 20 gauge in left antecubital area, using aseptic technique. Blood bp collected. 14:15 Safety Checks: Personal items have been removed. The door is open or patient has been bp placed in a hallway bed/chair. A family member and/or friend is present and encouraged to stay. Sitter present at this time. 14:16 EKG done, by pest control service technician. reviewed by Arden Hilario MD. at1 14:30 Safety Checks: Personal items have been removed. The door is open or patient has been bp placed in a hallway bed/chair. A family member and/or friend is present and encouraged to stay. Sitter present at this time. 14:45 Safety Checks: Personal items have been removed. The door is open or patient has been bp placed in a hallway bed/chair. A family member and/or friend is present and encouraged to stay. Sitter present at this time. 15:00 Safety Checks: Personal items have been removed. The door is open or patient has been bp placed in a hallway bed/chair. A family member and/or friend is present and encouraged to stay. Sitter present at this time. 15:15 Safety Checks: Personal items have been removed. The door is open or patient has been bp placed in a hallway bed/chair. A family member and/or friend is present and encouraged to stay. Sitter present at this time. 15:30 Safety Checks: Personal items have been removed. The door is open or patient has been bp placed in a hallway bed/chair. A family member and/or friend is present and encouraged to stay. Sitter present at this time. 15:45 Safety Checks: Personal items have been removed. The door is open or patient has been bp placed in a hallway bed/chair. A family member and/or friend is present and encouraged to stay. Sitter present at this time. 15:59 CT completed. Patient tolerated procedure well. Patient moved back from CT. nj 16:00 Head Brain Wo Cont In Process Unspecified. EDMS 16:00 Safety Checks: Personal items have been removed. The door is open or patient has been bp placed in a hallway bed/chair. A family member and/or friend is present and encouraged to stay. Sitter present at this time. 16:09 Safety Checks: Personal items have been removed. The door is open or patient has been hl placed in a hallway bed/chair. A family member and/or friend is present and encouraged to stay. Sitter present at this time. 16:11 Lanre Zavala DO is Hospitalizing Provider. rn 16:15 Safety Checks: Personal items have been removed. The door is open or patient has been bp placed in a hallway bed/chair. A family member and/or friend is present and encouraged to stay. Sitter present at this time. 16:15 Safety Checks: Personal items have been removed. The door is open or patient has been hl placed in a hallway bed/chair. A family member and/or friend is present and encouraged to stay. Sitter present at this time. 16:30 Safety Checks: Personal items have been removed. The door is open or patient has been hl placed in a hallway bed/chair. A family member and/or friend is present and encouraged to stay. Sitter present at this time. 16:45 Safety Checks: Personal items have been removed. The door is open or patient has been hl placed in a hallway bed/chair. A family member and/or friend is present and encouraged to stay. Sitter present at this time. 16:55 Safety checks: Items removed: yes. Door open/sign placed on door: yes. Family/friend em1 present: yes. Family/friends encouraged to stay with patient. Sitter present: Yes. 17:12 Safety checks: Items removed: yes. Door open/sign placed on door: yes. Family/friend em1 present: no. Sitter present: Yes. 17:26 Safety checks: Items removed: yes. Door open/sign placed on door: yes. Family/friend em1 present: no. Sitter present: Yes. 17:45 Safety checks: Items removed: yes. Door open/sign placed on door: yes. Family/friend em1 present: no. Sitter present: Yes. 17:59 Safety checks: Items removed: yes. Door open/sign placed on door: yes. Family/friend em1 present: no. Sitter present: Yes. 18:15 Safety checks: Items removed: yes. Door open/sign placed on door: yes. Family/friend em1 present: no. Sitter present: Yes. 18:30 Safety checks: Items removed: yes. Door open/sign placed on door: yes. Family/friend em1 present: no. Sitter present: Yes. 18:40 Safety checks: Items removed: yes. Door open/sign placed on door: yes. Family/friend em1 present: yes. Family/friends encouraged to stay with patient. Sitter present: Yes. 18:56 Safety checks: Items removed: yes. Door open/sign placed on door: yes. Family/friend em1 present: no. Sitter present: Yes. 19:16 Safety checks: Items removed: yes. Door open/sign placed on door: yes. Family/friend td present: no. Sitter present: Yes. 19:29 Safety checks: Items removed: yes. Door open/sign placed on door: yes. Family/friend td present: no. Sitter present: Yes. 19:45 Safety checks: Items removed: yes. Door open/sign placed on door: yes. Family/friend td present: no. Sitter present: Yes. 19:59 Safety checks: Items removed: yes. Door open/sign placed on door: yes. Family/friend td present: yes. no. Sitter present: Yes. 20:14 Safety checks: Items removed: yes. Door open/sign placed on door: yes. Family/friend td present: no. Sitter present: Yes. 20:15 Safety checks: Items removed: yes. Door open/sign placed on door: yes. Family/friend td present: no. Sitter present:. 20:30 Safety checks: Items removed: yes. Door open/sign placed on door: yes. Family/friend td present: no. Sitter present: Yes. 20:45 Safety checks: Items removed: yes. Door open/sign placed on door: yes. Family/friend td present: no. Sitter present: Yes. 21:00 Safety checks: Items removed: yes. Door open/sign placed on door: yes. Family/friend td present: no. Sitter present: Yes. 21:15 Safety checks: Items removed: yes. Door open/sign placed on door: yes. Family/friend td present: no. Sitter present: Yes. 21:30 Safety checks: Items removed: yes. Door open/sign placed on door: yes. Family/friend td present: no. Sitter present: Yes. 21:45 Safety checks: Items removed: yes. Door open/sign placed on door: yes. Family/friend td present: no. Sitter present: Yes. 12/20 06:00 second phone call made to the [facility]/ ann Vazquez she will call the screener eb again and let her know we still have a patient for her to come evaluate. 06:21 Jerica from the [facility] called and said she would be here in 30 to 35 eb minutes. 07:17 Primary Nurse role handed off by Delmer Mcfadden RN eb 08:00 Private physician paged at 08:00 called Jacoby Kelly at [phone] Zavala and eb left a message to please call the ed for patient consulation. 08:05 Attending Physician role handed off by Arden Hilario MD kdr 08:05 Danny Romo MD is Attending Physician. kdr 08:48 faxed patient records to [facility]/ Dr. Zavala notified. eb 11:11 \\[id number] connected [facility] with ED nurse for nurse to nurse/ \\[id number] Dr. Gardner accepted eb the patient in transfer. administrative approval given by Alma Alex/. 12/21 03:47 Attending Physician role handed off by Danny Romo MD bb Administered Medications: 12/19 14:25 Drug: NS 0.9% 1000 ml Route: IV; Rate: 1000 ml; Site: left antecubital; bp 14:25 Drug: Glucagon 1 mg Route: IVP; Site: left antecubital; bp 16:06 Follow up: Response: No adverse reaction bp Outcome: 16:12 Decision to Hospitalize by Provider. rn 12/20 11:56 Patient left the ED. sv 12/21 03:47 Patient left the ED. bb Signatures: Dispatcher [employer] EDMS Elizabeth Gaytan, RN RN aj1 Gricelda Wang RN RN Danny Huang MD MD kdr Ballard, Brenda RN RN bb Arden Hilario MD MD rn Martinez, Eric em1 Deysi Silver RN RN Kelly Church, epic ambulatory analyst EKG Tat1 Skip Garcia Jonathon RN RN jd3 Delmer Mcfadden, RN RN bp Machelle Luna Elizabeth eb Davis, Tanika td Lim, Hannah, RN RN hl
--- NOTE | 2017-12-19 16:13 | EDPHYS ---
Physician Documentation [facility] Name: Rosario Hines Age: 47 yrs Sex: Female : 1970 Arrival Date: 12/19/2017 Time: 13:23 Bed 3 Private MD: Rufina Maradiaga H ED Physician HPI: 12/19 14:01 This 47 yrs old Female presents to ER via Wheelchair with complaints of rn Overdose, Suicidal Ideation. 14:01 The patient presents to the emergency department with a possible overdose. Severity of rn symptoms: At their worst the symptoms were mild in the emergency department the symptoms are unchanged. The patient has experienced similar episodes in the past. Reports approx 2 hours prior to arrival took a handful, exact unknown, of pills, reports was lorazepam, tinazidine, and and anti-depressant, unknown of each, in order to harm herself. Called someone close to her to notify her, who then brought her in. Has tried to harm herself in past. . 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 - Social history:: Smoking status: Patient uses tobacco products, smokes one pack cigarettes per day. - Ebola Screening: : Patient denies travel to an Ebola-affected area in the 21 days before illness onset. - Family history:: not pertinent. - Hospitalizations: : No recent hospitalization is reported. ROS: 14:01 Constitutional: Negative for fever, chills, and weight loss, Eyes: Negative for injury, rn pain, redness, and discharge, Neck: Negative for injury, pain, and swelling, Cardiovascular: Negative for chest pain, palpitations, and edema, Respiratory: Negative for shortness of breath, cough, wheezing, and pleuritic chest pain, Abdomen/GI: Negative for abdominal pain, nausea, vomiting, diarrhea, and constipation, MS/Extremity: Negative for injury and deformity, Skin: Negative for injury, rash, and discoloration, Neuro: Negative for headache, weakness, numbness, tingling, and seizure. Exam: 14:01 Constitutional: This is a well developed, well nourished patient who is awake, alert, rn and in no acute distress. Head/Face: Normocephalic, atraumatic. Eyes: Pupils equal round and reactive to light, extra-ocular motions intact. Lids and lashes normal. Conjunctiva and sclera are non-icteric and not injected. Cornea within normal limits. Periorbital areas with no swelling, redness, or edema. ENT: MMM Neck: Trachea midline, no thyromegaly or masses palpated, and no cervical lymphadenopathy. Supple, full range of motion without nuchal rigidity, or vertebral point tenderness. No Meningismus. Cardiovascular: regular, bradycardic, no murmur Respiratory: Lungs have equal breath sounds bilaterally, clear to auscultation Abdomen/GI: soft, non-tender MS/ Extremity: Pulses equal, no cyanosis. Neurovascular intact. Full, normal range of motion. Equal circumference. Neuro: Awake and alert, GCS 15, oriented to person, place, time, and situation. Cranial nerves II-XII grossly intact. Motor strength 5/5 in all extremities. Sensory grossly intact. Cerebellar exam normal. Psych: Flat affect, mildly uncooperative with psychiatric interview Vital Signs: 13:43 BP 140 / 90; Pulse 48; Resp 13; Pulse Ox 97% on R/A; Weight 81.65 kg (R); Height 5 ft. aj1 4 in. (162.56 cm) (R); 14:15 BP 100 / 64; Pulse 39; Resp 19; Pulse Ox 96% ; bp 14:54 BP 103 / 60; Pulse 40; Resp 18; Pulse Ox 96% ; bp 15:15 BP 98 / 69; Pulse 41; Resp 19; Pulse Ox 97% ; bp 16:10 BP 105 / 57; Pulse 50; Resp 13; Pulse Ox 98% ; hl 16:30 BP 115 / 72; Pulse 48; Resp 19; Temp 99.2; Pulse Ox 97% ; hl 13:43 Body Mass Index 30.90 (81.65 kg, 162.56 cm) aj1 MDM: 13:30 Patient medically screened. rn 16:10 Differential diagnosis: Ingestion/exposure to benzo, anti-depressant, beta sam, rn clonidine. Data reviewed: vital signs, nurses notes, lab test result(s), EKG, and as a result, I will admit patient. Counseling: I had a detailed discussion with the patient and/or guardian regarding: the historical points, exam findings, and any diagnostic results supporting the discharge/admit diagnosis, lab results, the need for outpatient follow up, to return to the emergency department if symptoms worsen or persist or if there are any questions or concerns that arise at home. Response to treatment: the patient's symptoms have mildly improved after treatment, and as a result, I will admit patient. Admission orders: after a detailed discussion of the patient's condition and case, the admit orders are written by me. Special discussion:. ED course: Pt with persistent bradycardia, otherwise stable, in sinus, possible clonidine vs beta sam overdose, admitted to ICU given bradycardia, overdose, and SI, to Dr. Zavala. . 12/19 13:29 Order name: Acetaminophen; Complete Time: 15:03 bp 12/19 13:29 Order name: Basic Metabolic Panel; Complete Time: 15:03 bp 12/19 13:29 Order name: CBC with Diff; Complete Time: 14:52 bp 12/19 13:29 Order name: ETOH Level; Complete Time: 14:52 bp 12/19 13:29 Order name: Hepatic Function; Complete Time: 15:03 bp 12/19 13:29 Order name: PT-INR; Complete Time: 14:52 bp 12/19 13:29 Order name: Ptt, Activated; Complete Time: 14:52 bp 12/19 13:29 Order name: Salicylate; Complete Time: 16:12 bp 12/19 13:29 Order name: Urine Drug Screen bp 12/19 15:51 Order name: T4 Free EDMS 12/19 15:51 Order name: Thyroid Stimulating Hormone EDMS 12/19 15:51 Order name: CBC with Automated Diff EDMS 12/19 15:51 Order name: CBC with Automated Diff EDMS 12/19 15:51 Order name: Comprehensive Metabolic Panel EDMS 12/19 13:29 Order name: EKG; Complete Time: 13:30 bp 12/19 13:29 Order name: EKG - Nurse/Tech; Complete Time: 14:26 bp 12/19 13:29 Order name: IV Saline Lock; Complete Time: 14:26 bp 12/19 13:29 Order name: Labs collected and sent; Complete Time: 14:26 bp 12/19 15:51 Order name: Head Brain Wo Cont; Complete Time: 16:12 EDMS 12/19 15:51 Order name: Social Service Consult EDFL 12/19 15:51 Order name: Clear Liquid EDFL 12/19 15:51 Order name: Comprehensive Metabolic Panel EDFL 12/19 15:51 Order name: Magnesium EDFL 12/19 15:51 Order name: Magnesium EDFL 12/19 15:52 Order name: Chest Single View EDFL 12/19 16:20 Order name: Urine Dipstick--Ancillary (enter results) 12/19 16:44 Order name: Urine Dipstick-Ancillary EDFL 12/20 09:23 Order name: Diet Finger Food; Complete Time: 09:24 lr2 12/19 13:29 Order name: Urine Dipstick-Ancillary (obtain specimen); Complete Time: 16:16 bp 12/19 13:39 Order name: Urine Test (obtain specimen); Complete Time: 16:15 rn Administered Medications: 14:25 Drug: NS 0.9% 1000 ml Route: IV; Rate: 1000 ml; Site: left antecubital; bp 14:25 Drug: Glucagon 1 mg Route: IVP; Site: left antecubital; bp 16:06 Follow up: Response: No adverse reaction bp Disposition: 12/19/17 16:12 Hospitalization ordered by Lanre Zavala for Inpatient Admission. Preliminary diagnosis are Bradycardia, unspecified, Intentional overdose. - Bed requested for [facility] ER HOLD. - Status is Inpatient Admission. bb - Condition is Stable. - Problem is new. - Symptoms have improved. UTI on Admission? No Signatures: Dispatcher [facility] [facility] Elizabeth Gaytan RN RN Gricelda Benedict RN RUI sv Ritu Parks RN RN Arden To MD MD rn Smirch, Shelby, RN RN ss Peltier, Brian RN RN bp Corrections: (The following items were deleted from the chart) 16:41 16:12 Hospitalization Ordered by Lanre Prezas DO for Inpatient Admission. Preliminary ss diagnosis is Bradycardia, unspecified; Intentional overdose. Bed requested for Intensive Care Unit. Status is Inpatient Admission. Condition is Stable. Problem is new. Symptoms have improved. UTI on Admission? No. rn 12/20 11:56 11 16:41 12/19/2017 16:12 Hospitalization Ordered by Lanre Sally NEIL for Inpatient sv Admission. Preliminary diagnosis is Bradycardia, unspecified; Intentional overdose. Bed requested for [facility] ER HOLD. Status is Inpatient Admission. Condition is Stable. Problem is new. Symptoms have improved. UTI on Admission? No. ss 12/21 03:47 12/20 11:56 12/19/2017 16:12 Hospitalization Ordered by Lanre Sally DO for Inpatient bb Admission. Preliminary diagnosis is Bradycardia, unspecified; Intentional overdose. Bed requested for [facility] ER HOLD. Status is Inpatient Admission. Condition is Stable. Problem is new. Symptoms have improved. UTI on Admission? No. sv
--- NOTE | 2017-12-19 16:37 | RAD REPORT ---
EXAM DESCRIPTION: Tiffany Single View12/19/2017 4:27 pm CLINICAL HISTORY: sob COMPARISON: November 2017 FINDINGS: The lungs appear clear of acute infiltrate. The heart is normal size IMPRESSION: No acute abnormalities displayed
[2017-12-19 16:40] LABS: Barbiturates NEGATIVE (NEGATIVE); Benzodiazepines NEGATIVE (NEGATIVE); Cocaine NEGATIVE (NEGATIVE); METHAMPHETAM NEGATIVE (NEGATIVE); Methadone NEGATIVE (NEGATIVE); Opiates NEGATIVE (NEGATIVE); Phencyclidine NEGATIVE (NEGATIVE); THC Cannibis POSITIVE (NEGATIVE)
[2017-12-19 16:44] LABS: Urine Blood NEGATIVE (NEG); Urine Glucose NEGATIVE (NEG); Urine Protein TRACE (NEG); Urine Specific Gravity 1.025 (1.005-1.030); Urine pH 5.5 (5.0-7.0)
[2017-12-19 16:56] LABS: Thyroid Stimulating Hormone 0.778 uIU/mL (0.360-3.740)
[2017-12-19 17:04] VITALS: BMI 30.9
[2017-12-19 17:50] VITALS: O2SAT 97
[2017-12-19] MEDS: D5 0.9 NS 1,000 ML IV SCH (19:00)
[2017-12-19] MEDS: ENOXAPARIN 40 MG/0.4 ML SQ SCH (19:00)
[2017-12-19] MEDS ORDERED: D5 0.9 NS 1,000 ML IV ONE (19:09)
[2017-12-19] MEDS ORDERED: ENOXAPARIN 40 MG/0.4 ML SQ ONE (19:10)
[2017-12-19] MEDS ORDERED: ONDANSETRON 4 MG/2 ML VIAL ONE (19:19)
--- NOTE | 2017-12-19 22:17 | EKG ---
Test Date: 2017-12-19 Test Time: 14:09:21 Sole Polisher: SARAH MEASUREMENT RESULTS: Intervals: Rate: 42 VA: 164 QRSD: 72 QT: 516 QTc: 430 Mauldin: P: 22 VA: 164 QRS: 17 T: 8 INTERPRETIVE STATEMENTS: Marked sinus bradycardia Nonspecific T wave abnormality Abnormal ECG Compared to ECG 06/13/2017 16:49:37 Sinus rhythm no longer present T-wave abnormality still present Electronically Signed On 12-19-17 22:16:52 SALES AND MERCHANDISING REPRESENTATIVE by Werner Tirado
[2017-12-19] MEDS ORDERED: TIZANIDINE 4 MG TABLET PO PRN (22:30)
[2017-12-19] MEDS: HYDRALAZINE HCL 20 MG/ML VIAL IV PRN (22:55)
[2017-12-20] MEDS: D5 0.9 NS 1,000 ML IV SCH ×2 (02:00→10:20)
[2017-12-20] MEDS: HYDRALAZINE HCL 20 MG/ML VIAL IV PRN (02:25)
[2017-12-20] MEDS ORDERED: CLONIDINE HCL 0.3 MG TAB PO ONE (04:26)
[2017-12-20] MEDS ORDERED: cloNIDine HCl 0.1 MG TAB ONE (04:40)
[2017-12-20] MEDS ORDERED: ACETAMINOPHEN 500 MG TAB ONE (04:46)
[2017-12-20 05:55] LABS: Absolute Lymphocytes (CBC) 2.6 K/uL (0.7-4.9); Absolute Monocytes 0.7 K/uL (0.1-1.3); Absolute Neutrophil 8.2 K/uL (1.8-8.0); Basophils % 0.7 % (0-1.3); Eosinophils % 0.6 % (0-4.4); Hematocrit 41.5 % (36.0-45.0); Lymphocytes % 22.4 % (15.3-44.8); MCH 31.5 pg (27.0-35.0); MCV 91.3 fL (80-100); MPV 7.8 fL (7.6-11.3); Monocytes % 6.2 % (3.3-12.3); RBC Red Blood Cell Count 4.55 M/uL (3.86-4.86)
[2017-12-20 06:13] LABS: ALT/SGPT 65 U/L (12-78); AST/SGOT 24 U/L (15-37); Albumin 3.5 g/dL (3.4-5.0); Alkaline Phosphatase 109 U/L (45-117); BUN Blood Urea Nitrogen 6 mg/dL (7-18); Bicarbonate 28 mmol/L (21-32); Bilirubin Total 0.5 mg/dL (0.2-1.0); Glucose Level 91 mg/dL (74-106); Magnesium 2.1 mg/dL (1.8-2.4); Potassium 3.4 mmol/L (3.5-5.1); Protein, Total 6.4 g/dL (6.4-8.2); Sodium Level 142 mmol/L (136-145)
[2017-12-20] MEDS ORDERED: PANTOPRAZOLE 40MG TABLET PO SCH (06:30)
[2017-12-20] MEDS ORDERED: IBUPROFEN 400 MG TAB PO PRN (07:11)
[2017-12-20] MEDS ORDERED: TRAMADOL HCL 50 MG TAB PO PRN (07:11)
--- NOTE | 2017-12-20 07:21 | P.PN ---
Subjective Date of Service: 12/20/17 Primary Care Provider: Dr. Maradiaga; PSYC-Dr. Longoria Chief Complaint: Altered mental status Subjective: Other (Patient doing better this morning. She is more alert. Patient reports that apparently she took her medications yesterday. She was distracted been took her medications again. She reports that she did not do this intentionally. Patient has history of depression with anxiety.) Physical Examination - Vital Signs Temperature: 98.9 F Blood Pressure: 124/71 Pulse: 53 Respirations: 20 Pulse Ox (%): 96 - Physical Exam General: Alert, In no apparent distress, Oriented x3, Cooperative HEENT: Atraumatic Neck: Supple Respiratory: Clear to auscultation bilaterally, Normal air movement Cardiovascular: Normal pulses, Regular rate/rhythm Gastrointestinal: Normal bowel sounds, Soft and benign, Non-distended, No tenderness, No masses, No rebound, No guarding Musculoskeletal: No erythema, No tenderness, No warmth Integumentary: No tenderness/swelling, No erythema, No warmth, No cyanosis Neurological: Normal speech, Normal strength at 5/5 x4 extr, Normal tone, Normal affect - Studies Laboratory Data (last 24 hrs) 12/19/17 14:00: PT 11.1, INR 0.94, APTT 22.0 L 12/19/17 14:00: WBC 9.9, Hgb 14.0, Hct 39.4, Plt Count 223 12/19/17 14:00: Sodium 135 L, Potassium 3.4 L, BUN 6 L, Creatinine 0.70, Glucose 87, Total Bilirubin 0.3, AST 31, ALT 70, Alkaline Phosphatase 104 Medications List Reviewed: Yes Assessment & Plan Discharge Plan: Psychiatry Plan to discharge in: 24 Hours Physician Review Additional Text: Impression: Altered mental status secondary to overdose of medication likely suicide attempt with history of bipolar disorder and prior suicide attempt Bradycardia and hypotension likely related to overdose of medication with history of hypertension Bipolar disorder with increased anxiety and stress Tobacco abuse Hyponatremia Hypokalemia Positive for THC Headache Plan: Altered mental status secondary to overdose of medication suspect suicide attempt with history of bipolar disorder and prior suicide attempt: Patient doing better this morning. CT head unremarkable. Chest x-ray unremarkable. Heart rate now within normal range. Blood pressure stable. Patient reports that she missed took her medication yesterday. She reports taking her medication in the morning. Then she apparently she was distracted. Then she reports that she took the medication again. History appears unclear. was very worried yesterday concerning her condition an increased stress. was in process of having her seen by psychiatry. Patient also confronted on the use of her THC. She reports when taking THC that she does get confused. Patient with history of bipolar disorder and prior suicide attempt. Will have mental health officer evaluate patient for psychiatric transfer. Await their recommendations. Patient now back on her psychiatric medications including Trileptal 600 mg 1 pill twice daily, trazodone 100 mg 1 pill bedtime, Celexa 40 mg daily and Cymbalta 60 mg daily. Will continue to hold metoprolol, muscle relaxer, and Geodon. Patient medically stable for transfer to psychiatric facility if mental health officer agrees. If not will need to consider home with precautions Bradycardia and hypotension secondary to overdose of medication with history of hypertension: Likely related to medication. Blood pressure elevated this morning. Lisinopril restarted. Will continue to hold metoprolol. Will need to verify home medications. y. Bipolar disorder with increased anxiety and stress: Continue as above. Mental health officer to evaluate patient for possible psychiatric transfer. Patient appears to be a poor historian. Tobacco abuse: Will address lifestyle modification education. Hyponatremia/hypokalemia: Will continue with IV fluids. Will monitor and replace appropriately. Electrolytes within normal range. Positive THC: Lifestyle modification education provided. THC cessation address. Headache: Patient reports a history of migraines. Blood pressure stable. Heart rate within normal range. She also reports taking migraine medication but I do not see any medication for Migraine on her current medication list. Patient does not appear in distress. Patient requested pain medication, Fiorcet with codeine. Patient may be drug-seeking. Will refrain from narcotic use. Will provide Tylenol or ibuprofen or tramadol as needed for pain. Time Spent Managing Pts Care (In Minutes): 55
[2017-12-20] MEDS ORDERED: PANTOPRAZOLE 40MG TABLET PO ONE (07:52)
[2017-12-20] MEDS ORDERED: LISINOPRIL 20 MG TAB ONE (07:52)
[2017-12-20] MEDS ORDERED: ENOXAPARIN 40 MG/0.4 ML SQ ONE (07:52)
[2017-12-20] MEDS ORDERED: IBUPROFEN 400 MG TAB ONE (08:11)
[2017-12-20] MEDS: ENOXAPARIN 40 MG/0.4 ML SQ SCH (08:14)
[2017-12-20] MEDS ORDERED: POTASSIUM 25 MEQ EFFERV TAB PO ONE (08:34)
[2017-12-20 08:53] VITALS: TEMP 98.2
[2017-12-20] MEDS ORDERED: POTASSIUM 25 MEQ EFFERV TAB ONE (08:53)
[2017-12-20] MEDS ORDERED: TRAMADOL HCL 50 MG TAB ONE (08:53)
[2017-12-20] MEDS ORDERED: HOME MED 1 EA UNK (Oxcarbazepine [Oxcarbazepine] 600 MG) PO SCH (09:00)
[2017-12-20] MEDS ORDERED: OXcarbazepine 150 MG TAB PO SCH (09:00)
[2017-12-20] MEDS ORDERED: HOME MED 1 EA UNK (Omeprazole [Prilosec] 40 MG) PO SCH (09:00)
[2017-12-20] MEDS ORDERED: LISINOPRIL 20 MG TAB PO SCH (09:00)
--- NOTE | 2017-12-20 10:55 | P.DS ---
Admission Date: 12/19/17 Discharge Date: 12/20/17 Primary Care Provider: Dr. Maradiaga; PS-Dr. Longoria Disposition: TRANSFR TO OTHER-PSY/CD/REHAB Discharge Condition: GOOD Reason for Admission: Altered mental status Consultations: None Procedures: CT head: No acute intracranial abnormality noted. Medical problem list: Altered mental status resolved secondary to overdose of medication appears unintentional with history of bipolar disorder and prior suicide attempt Bradycardia and hypotension resolved secondary to overdose of medication with history of hypertension Bipolar disorder with increased anxiety/stress and history of noncompliance with follow up Tobacco abuse Hyponatremia Hypokalemia Positive for THC Headache History of narcotic abuse Brief History of Present Illness: 47-year-old female presented to the emergency room with altered mental status. Patient was brought in by family member. Most of the information came from the and ER physician. reports that the patient was doing well yesterday. Patient with history of depression, hypertension, tobacco abuse, distant suicide attempt 10 years ago. left the patient at home. He reports patient was doing well. The only complaint that he says was a the patient had not been able to sleep well. He also reports that he has a son who is in care home. His court date is coming soon. Patient apparently had been under stress lately. Apparently the patient called the [id number] all and reported that she took medications. [id number]-rd-[id number] brought patient to the ER for evaluation. The ER patient attended. Heart rate showed bradycardia with a rate as lows in the 40s. Blood pressure also low. CBC unremarkable. Sodium 135, potassium 3.4 , blood sugar 89. Urine drug screen negative. Alcohol level negative. Poison Control called. Recommendations were obtained. Patient admitted to ICU for further evaluation. When I saw the patient ER, she has appeared confused with increase sedation. Vital signs stable but still bradycardic. at bedside. and ER physician unsure what medications have been taken by patient. Medications include metoprolol, clonidine, lisinopril, Celexa, Seroquel, trazodone, Zanaflex. Hospital Course: Patient presented with altered mental status. Apparently patient overdosed on medication likely blood pressure medication with mixture of her psychiatric medications. Patient was treated in the hospital. Patient now back to baseline. Patient not suicidal at this time. Bradycardia no longer present. Blood pressure stable. Patient reports episode was not intentional. She admits taking THC yesterday which cause her to be very drowsy. At which point she retook medication-blood pressure medication which led to her hospitalization. Patient with history of bipolar disorder and prior suicide attempt in the past. Patient under stress at home as a son is incarcerated and expected to be chronically incarcerated. Case discussed at length with her psychiatrist Dr. Longoria. Patient was to have visited with her psychiatrist in October but failed to show. Due to the nature of the event and history of bipolar disorder with prior suicide attempt it was recommended that the patient be sent to a psychiatric inpatient facility to be further assessed and continue her care. Case discussed at length with patient, , her psychiatrist and inpatient psychiatry. Patient willing to go to inpatient psych facility voluntarily. Patient has been accepted by inpatient Psychiatry Dr. Gardner at [facility]. Patient with bipolar disorder. Patient will continue with Trileptal all 6 hr mg 1 pill twice daily, trazodone 100 mg 1 pill at bedtime as needed, Celexa 40 mg daily, Geodon 80 mg daily and Cymbalta 60 mg daily. Patient will be further assessed by psychiatry at the inpatient facility. Patient will need follow up with her psychiatrist after discharge from facility. Patient with hypertension. Blood pressure stable. Patient will continue with lisinopril 20 mg 1 pill twice daily and metoprolol XL 100 mg daily. Will recommend to discontinue clonidine as this interacts with metoprolol. Recommendation is to maintain blood pressures less 150/80. Further adjustment can be done by her PCP. Patient with THC use. Cessation addressed in detail. Patient understands risks in taking medication especially with her current medications. Patient with GERD. Patient will continue with Prilosec daily. Patient reports history of migraine headaches. Her psychiatrist mentions patient has history of narcotic abuse. She has been on suboxone in the past. Recommendation not to use any narcotic medication in the future for pain. Patient will need to see Neurology as an outpatient to further monitor and address her migraines. Patient may take Tylenol [id number] or ibuprofen as needed for pain. Vital Signs/Physical Exam: Temp Pulse Resp BP Pulse Ox 98.2 F 60 18 146/72 H 96 12/20/17 08:00 12/20/17 10:00 12/20/17 10:00 12/20/17 10:00 12/20/17 10:00 General: Alert, In no apparent distress, Oriented x3, Cooperative HEENT: Atraumatic Neck: Supple Respiratory: Clear to auscultation bilaterally, Normal air movement Cardiovascular: Normal pulses, Regular rate/rhythm Gastrointestinal: Normal bowel sounds, Soft and benign, Non-distended, No tenderness, No masses, No rebound, No guarding Musculoskeletal: No erythema, No tenderness, No warmth Integumentary: No tenderness/swelling, No erythema, No warmth, No cyanosis Neurological: Normal speech, Normal strength at 5/5 x4 extr, Normal tone, Normal affect Laboratory Data at Discharge: WBC 11.7 K/uL (4.3-10.9) H D 12/20/17 01:53 Hgb 14.3 g/dL (12.0-15.0) 12/20/17 01:53 Hct 41.5 % (36.0-45.0) 12/20/17 01:53 Plt Count 236 K/uL (152-406) 12/20/17 01:53 PT 11.1 SECONDS (9.5-12.5) 12/19/17 14:00 INR 0.94 12/19/17 14:00 APTT 22.0 SECONDS (24.3-36.9) L 12/19/17 14:00 Sodium 142 mmol/L (136-145) 12/20/17 01:53 Potassium 3.4 mmol/L (3.5-5.1) L 12/20/17 01:53 BUN 6 mg/dL (7-18) L 12/20/17 01:53 Creatinine 0.60 mg/dL (0.55-1.3) 12/20/17 01:53 Glucose 91 mg/dL (74-106) 12/20/17 01:53 Magnesium 2.1 mg/dL (1.8-2.4) 12/20/17 01:53 Total Bilirubin 0.5 mg/dL (0.2-1.0) 12/20/17 01:53 AST 24 U/L (15-37) 12/20/17 01:53 ALT 65 U/L (12-78) 12/20/17 01:53 Alkaline Phosphatase 109 U/L (45-117) 12/20/17 01:53 Home Medications: Citalopram Hydrobromide [Citalopram HBr] 40 mg PO BEDTIME #0 09/10/12 Duloxetine HCl [Cymbalta] 1 tab PO BEDTIME 06/13/17 LORazepam [Lorazepam] 1 tab PO BID 06/13/17 Trazodone HCl 1 tab PO BEDTIME 06/13/17 Ziprasidone HCl [Geodon] 1 cap PO BEDTIME 06/13/17 Lisinopril [Prinivil*] 20 mg PO BID 12/19/17 Metoprolol Succinate [Toprol Xl] 100 mg PO DAILY 12/19/17 OXcarbazepine [Oxcarbazepine] 600 mg PO BID 12/19/17 Omeprazole [Prilosec] 40 mg PO DAILY 12/19/17 Patient Discharge Instructions: 1. Patient be transferred to psych facility to continue her care. 2. Patient presented with altered mental status. Apparently patient overdosed on medication likely blood pressure medication with mixture of her psychiatric medications. Patient was treated in the hospital. Patient now back to baseline. Patient not suicidal at this time. Bradycardia no longer present. Blood pressure stable. Patient reports episode was not intentional. She admits taking THC yesterday which cause her to be very drowsy. At which point she retook medication-blood pressure medication which led to her hospitalization. Patient with history of bipolar disorder and prior suicide attempt in the past. Patient under stress at home as a son is incarcerated and expected to be chronically incarcerated. Case discussed at length with her psychiatrist Dr. Longoria. Patient was to have visited with her psychiatrist in October but failed to show. Due to the nature of the event and history of bipolar disorder with prior suicide attempt it was recommended that the patient be sent to a psychiatric inpatient facility to be further assessed and continue her care. Case discussed at length with patient, , her psychiatrist and inpatient psychiatry. Patient willing to go to inpatient psych facility voluntarily. Patient has been accepted by inpatient Psychiatry Dr. Gardner at [facility]. 3. Patient with bipolar disorder. Patient will continue with Trileptal all 6 hr mg 1 pill twice daily, trazodone 100 mg 1 pill at bedtime as needed, Celexa 40 mg daily, Geodon 80 mg daily and Cymbalta 60 mg daily. Patient will be further assessed by psychiatry at the inpatient facility. Patient will need follow up with her psychiatrist after discharge from facility. 4. Patient with hypertension. Blood pressure stable. Patient will continue with lisinopril 20 mg 1 pill twice daily and metoprolol XL 100 mg daily. Will recommend to discontinue clonidine as this interacts with metoprolol. Recommendation is to maintain blood pressures less 150/80. Further adjustment can be done by her PCP. 5. Patient with THC use. Cessation addressed in detail. Patient understands risks in taking medication especially with her current medications. 6. Patient with GERD. Patient will continue with Prilosec daily. 7. Patient reports history of migraine headaches. Her psychiatrist mentions patient has history of narcotic abuse. She has been on suboxone in the past. Recommendation not to use any narcotic medication in the future for pain. Patient will need to see Neurology as an outpatient to further monitor and address her migraines. Patient may take Tylenol [id number] or ibuprofen as needed for pain. Diet: AHA Activity: Ad jessie Time spent managing pt's care (in minutes): 55
[2017-12-20] MEDS ORDERED: LORAZEPAM 0.5 MG TABLET PO ONE (11:40)
[2017-12-20 11:54] VITALS: BP 146/72
--- NOTE | 2017-12-20 11:54 | P.PN ---
Subjective Date of Service: 12/20/17 patient blood pressure has been very labile and difficult to control. Patient blood pressures been running 190/100. We added hydralazine. Patient's heart rate went from 40's to 70's. Patient was given her regular dose of clonidine. This had lowered patient's blood pressure. Will continue to monitor and may need to give low-dose clonidine going forward. Patient denies being suicidal however nursing staff knows patient well and states that she has been suicidal on many occasions. We will get [facility] to evaluate patient. Review of Systems 10-point ROS is otherwise unremarkable Physical Examination - Vital Signs Temperature: 98.2 F Blood Pressure: 146/72 Pulse: 60 Respirations: 18 Pulse Ox (%): 96 - Physical Exam General: Alert, In no apparent distress Respiratory: Clear to auscultation bilaterally, Normal air movement Cardiovascular: Regular rate/rhythm, Normal S1 S2 Gastrointestinal: Normal bowel sounds, Soft and benign, Non-distended - Studies Laboratory Data (last 24 hrs) 12/19/17 14:00: PT 11.1, INR 0.94, APTT 22.0 L 12/19/17 14:00: WBC 9.9, Hgb 14.0, Hct 39.4, Plt Count 223 12/19/17 14:00: Sodium 135 L, Potassium 3.4 L, BUN 6 L, Creatinine 0.70, Glucose 87, Total Bilirubin 0.3, AST 31, ALT 70, Alkaline Phosphatase 104 Medications List Reviewed: Yes Assessment & Plan - Problems (Diagnosis) (1) Hypertensive urgency, malignant Current Visit: Yes Status: Acute (2) Suicidal behavior Current Visit: Yes Status: Acute (3) Overdose Current Visit: Yes Status: Acute - Plan Resume home BP meds. [facility] evaluation pending. Once this is done we will figure out where patient needs to be dispositioned. Continue to monitor blood pressure closely. Continue clonidine but hold beta-sam. Continue with hydralazine as needed. Discharge Plan: Home Plan to discharge in: 48 Hours - Advance Directives Does patient have a Living Will: No Does patient have a Durable POA for Healthcare: No - Code Status/Comfort Care Code Status Assessed: Yes Code Status: Full Code Critical Care: No Time Spent Managing PTS Care (In Minutes): 45
[2017-12-20] MEDS ORDERED: ZIPRASIDONE HCL PO SCH (21:00)
[2017-12-20] MEDS ORDERED: HOME MED 1 EA UNK (Trazodone Hcl [Trazodone Hcl] 1 TAB) PO SCH (21:00)
[2017-12-20] MEDS ORDERED: TRAZODONE 50 MG TABLET PO SCH (21:00)
[2017-12-20] MEDS ORDERED: ZIPRASIDONE 40 MG CAP PO SCH (21:00)
[2017-12-20] MEDS ORDERED: CITALOPRAM 10 MG TABLET PO SCH (21:00)
[2017-12-20] MEDS ORDERED: DULOXETINE 30 MG CAP PO SCH (21:00)
== END 2017-12-20 12:00 | DRG 918 ==
LOC: ER 13:21 → ERHOLD 15:44
PROVIDERS: ADMIT Family Medicine; ATTEND Family Medicine
DX: T50.901A Poisoning by unspecified drugs, medicaments and biological substances, accidental (unintentional), initial encounter (principal); E87.1 Hypo-osmolality and hyponatremia; I95.2 Hypotension due to drugs; Y92.019 Unspecified place in single-family (private) house as the place of occurrence of the external cause; R00.1 Bradycardia, unspecified; I10 Essential (primary) hypertension; F41.9 Anxiety disorder, unspecified; F17.210 Nicotine dependence, cigarettes, uncomplicated; E87.6 Hypokalemia; R51 Headache; F12.10 Cannabis abuse, uncomplicated; Z91.19 Patient's noncompliance with other medical treatment and regimen
CPT/HCPCS: 36415; 70450; 71045; 80048; 80053; 80076; 80307; 80320; 80329; 81003; 83735; 84439; 84443; 85025; 85610; 85730; 93005; 96374; 99285; J0360; J1610; J1650; J2405; J7030

== ENCOUNTER 2018-03-14 17:22 | Emergency (ER) | payer OTHER ==
--- OUTSIDE RECORDS SUMMARY | 2018-03-14 17:25 | XMS REPORT ---
[...] End Status Dosage System Date Date Zanaflex [facility] 30084024813 4 MG Orally Active 1 tablet twice a day as needed Celexa [facility] 49875859897 40 MG Orally Active 1 tablet Once a day Lorazepam [facility] [id number] 2 MG Orally Once Active 1 tablet a day at bedtime as needed Trazodone HCl [facility] [id number] 100 MG Orally Active 3 times a TID day Urocit-K 10 [facility] 24294918575 10 MEQ (1080 MG) Active 1 tablet Orally daily with meals Results Name Result Date Reference Range Unit Abnormality Flag URINALYSIS AUTO W/O SCOPE (93183) ----LOY trace [id number] ----NIT neg [id number] ----PROTEIN neg [id number] ----pH 6.0 [id number] ----GLUCOSE neg [id number] ----KETONES neg [id number] ----SPECIFIC GRAVITY 1.025 [id number] ----BLO 1+ [id number] Summary Purpose eClinical[employer] Submission
[2018-03-14] MEDS ORDERED: MORPHINE 4 MG/ML SYR ONE (18:11)
[2018-03-14] MEDS ORDERED: ONDANSETRON 4 MG/2 ML VIAL ONE (18:11)
[2018-03-14 18:20] LABS: Absolute Lymphocytes (CBC) 2.5 K/uL (0.7-4.9); Absolute Monocytes 0.3 K/uL (0.1-1.3); Absolute Neutrophil 3.3 K/uL (1.8-8.0); Basophils % 0.3 % (0-1.3); Eosinophils % 2.2 % (0-4.4); Hematocrit 42.9 % (36.0-45.0); MPV 8.8 fL (7.6-11.3); Monocytes % 5.5 % (3.3-12.3); RBC Red Blood Cell Count 4.75 M/uL (3.86-4.86)
--- NOTE | 2018-03-14 18:59 | RAD REPORT ---
EXAM DESCRIPTION: US - Abdomen Exam Limited - 03/14/2018 6:21 pm CLINICAL HISTORY: Abdominal pain COMPARISON: CT study November 2017 FINDINGS: No gallstones, sludge or other abnormalities within the gallbladder lumen. Gallbladder is partially contracted which accentuates wall thickness. No pericholecystic fluid. No common duct stone or biliary tree dilatation identified. IMPRESSION: No gallstones, sludge or acute finding seen. Gallbladder wall thickness is accentuated due to partially contracted state.
[2018-03-14 19:21] LABS: ALT/SGPT 21 U/L (12-78); AST/SGOT 15 U/L (15-37); Albumin 3.7 g/dL (3.4-5.0); Alkaline Phosphatase 98 U/L (45-117); BUN Blood Urea Nitrogen 13 mg/dL (7-18); Bicarbonate 28 mmol/L (21-32); Bilirubin Direct < 0.1 mg/dL (0-0.2); Bilirubin Total 0.2 mg/dL (0.2-1.0); Glucose Level 91 mg/dL (74-106); Lipase 254 U/L (73-393); Potassium 4.1 mmol/L (3.5-5.1); Protein, Total 6.7 g/dL (6.4-8.2); Sodium Level 142 mmol/L (136-145)
--- NOTE | 2018-03-14 19:51 | RAD REPORT ---
EXAM DESCRIPTION: CT - Abdomen Pelvis W Contrast - 03/14/2018 7:36 pm CLINICAL HISTORY: Abdominal pain, right lower quadrant pain, prior hysterectomy and appendectomy COMPARISON: CT study November 2017 TECHNIQUE: Biphasic, helical CT imaging of the abdomen and pelvis was performed following 100 ml non -ionic IV contrast. Oral contrast was given. All CT scans are performed using dose optimization technique as appropriate and may include automated exposure control or mA/KV adjustment according to patient size. FINDINGS: No suspicious findings in the lung bases. The liver, spleen, and pancreas show no suspicious findings. Gallbladder and biliary tree are also wi thout suspicious finding. Symmetric renal function is seen with no hydronephrosis or suspicious renal mass. No pyelonephritis o r acute parenchymal process. No bladder abnormalities. No adrenal abnormalities. No dilated bowel loops or bowel wall thickening. No free air, free fluid or inflammatory stranding. No hernia, mass or bulky lymphadenopathy. Uterus is absent. Ovaries are absent or atrophic. No adnex al abnormality. Phleboliths are present. No suspicious bony findings. IMPRESSION: Contrast enhanced CT abdomen and pelvis showing no significant or suspicious finding. No significant change from 2018 comparison.
[2018-03-14 19:53] LABS: Urine Blood 2+ (NEG); Urine Glucose NEGATIVE (NEG); Urine Protein NEGATIVE (NEG); Urine pH 5.5 (5.0-7.0)
--- NOTE | 2018-03-14 20:17 | EDPHYS ---
Physician Documentation [facility] Name: Rosario Hines Age: 47 yrs Sex: Female : 1970 Arrival Date: 03/14/2018 Time: 17:25 Bed 5 Private MD: Rufina Maradiaga H ED Physician Danny Romo HPI: 03/14 17:56 This 47 yrs old Female presents to ER via Ambulatory with complaints of SIDE jmm PAIN. 17:56 The patient presents with abdominal pain. Onset: The symptoms/episode began/occurred jmm gradually, 3 day(s) ago. The symptoms do not radiate. Associated signs and symptoms: Pertinent positives: diarrhea, nausea. The symptoms are described as achy. This is a 47 year old female with a history of bipolar, htn, pseudo seizure, ibs that presents to the ED with complaints of abdominal pain, diarrhea, nausea. Denies recent ABX use, denies recent travel, denies infectious exposure. . Historical: - Allergies: 17:42 No Known Allergies; ph - PMHx: 17:42 Bipolar disorder; Hypertension; Pseudo-seizure; ph - PSHx: 17:42 Hysterectomy; Appendectomy; ph - Immunization history:: Adult Immunizations up to date. - Social history:: Smoking status: Patient uses tobacco products, smokes one pack cigarettes per day. - Ebola Screening: : No symptoms or risks identified at this time. ROS: 17:56 Constitutional: Negative for fever, chills, and weight loss, Cardiovascular: Negative jmm for chest pain, palpitations, and edema, Respiratory: Negative for shortness of breath, cough, wheezing, and pleuritic chest pain. 17:56 Abdomen/GI: Positive for abdominal pain, nausea, diarrhea. 17:56 All other systems are negative. Exam: 17:56 Constitutional: This is a well developed, well nourished patient who is awake, alert, jmm and in no acute distress. Head/Face: atraumatic. Eyes: EOMI, no conjunctival erythema appreciated ENT: Moist Mucus Membranes Neck: Trachea midline, Supple Chest/axilla: Normal chest wall appearance and motion. Cardiovascular: Regular rate and rhythm. No edema appreciated Respiratory: Normal respirations, no respiratory distress appreciated 17:56 Back: Normal ROM Skin: General appearance color normal MS/ Extremity: Moves all extremities, no obvious deformities appreciated, no edema noted to the lower extremities Neuro: Awake and alert, normal gait Psych: Behavior is normal, Mood is normal, Patient is cooperative and pleasant 17:56 Abdomen/GI: Inspection: abdomen appears normal, Bowel sounds: normal, Palpation: soft, moderate abdominal tenderness, in the right upper quadrant and right lower quadrant. Vital Signs: 17:42 BP 187 / 93; Pulse 59; Resp 22; Temp 97.8; Pulse Ox 100% on R/A; Weight 81.65 kg; ph Height 5 ft. 3 in. (160.02 cm); Pain 7/10; 18:24 BP 166 / 108; Pulse 58; Resp 20; Pulse Ox 96% on R/A; sv 18:30 Pain 7/10; sv 20:12 BP 160 / 91; Pulse 60; Resp 18; Pulse Ox 100% on R/A; Pain 8/10; ed1 17:42 Body Mass Index 31.89 (81.65 kg, 160.02 cm) ph MDM: 17:56 Patient medically screened. [facility] 20:16 Data reviewed: vital signs, nurses notes. Counseling: I had a detailed discussion with don the patient and/or guardian regarding: the historical points, exam findings, and any diagnostic results supporting the discharge/admit diagnosis, lab results, radiology results, the need for outpatient follow up, to return to the emergency department if symptoms worsen or persist or if there are any questions or concerns that arise at home. Response to treatment: the patient's symptoms have mildly improved after treatment, and as a result, I will discharge patient. 20:16 ED course: Patient is advised to follow up with her PCP or GI for reevaluation. patient shahramm otherwise given strict return precautions. I do not suspect an acute intraabdominal process. . 03/14 17:57 Order name: Basic Metabolic Panel; Complete Time: 19:56 [facility] 03/14 17:57 Order name: CBC with Diff; Complete Time: 18:47 [facility] 03/14 17:57 Order name: Creatinine for Radiology; Complete Time: 18:47 [facility] 03/14 17:57 Order name: Hepatic Function; Complete Time: 19:56 [facility] 03/14 17:57 Order name: Lipase; Complete Time: 19:56 [facility] 03/14 18:07 Order name: Urine Dipstick--Ancillary (enter results); Complete Time: 19:56 eb 03/14 17:57 Order name: IV Saline Lock; Complete Time: 18:04 [facility] 03/14 17:57 Order name: Labs collected and sent; Complete Time: 18:04 [facility] 03/14 17:57 Order name: US Abdomen Limited; Complete Time: 19:05 [facility] 03/14 18:07 Order name: Urine --Ancillary (enter results); Complete Time: 19:56 eb 03/14 19:06 Order name: CT Abd/Pelvis - W/Contrast; Complete Time: 19:56 [facility] 03/14 17:57 Order name: Urine Dipstick-Ancillary (obtain specimen); Complete Time: 18:04 [facility] 03/14 18:36 Order name: Labs - recollect needed; Complete Time: 18:44 eb Administered Medications: 18:02 Drug: Zofran 4 mg Route: IVP; Infused Over: 2 mins; Site: left antecubital; sv 18:30 Follow up: Response: No adverse reaction; Nausea is decreased sv 18:04 Drug: morphine 4 mg Route: IVP; Infused Over: 2 mins; Site: left antecubital; sv 18:30 Follow up: Pain 7/10 Adult; Response: No adverse reaction; Pain is decreased sv 20:34 Drug: Tylenol #3 (300 mg-30 mg) 1 tablet Route: PO; ed1 20:34 Follow up: Response: Medication administered at discharge. ed1 Disposition: 03/15 06:45 Co-signature as Attending Physician, Danny Romo MD I agree with the assessment and kdr plan of care. Disposition: 03/14/18 20:17 Discharged to Home. Impression: Generalized abdominal pain, Diarrhea, unspecified. - Condition is Stable. - Discharge Instructions: Abdominal Pain, Adult, Food Choices to Help Relieve Diarrhea, Adult, Diarrhea, Adult. - Prescriptions for Zofran ODT 4 mg Oral tablet,disintegrating - place 1 tablet by TRANSLINGUAL route every 4-6 hours followed by 2 additional 8 mg doses at 8 hour intervals; 20 tablet. Bentyl 20 mg Oral Tablet - take 2 tablet by ORAL route every 6 hours As needed; 40 tablet. Tylenol- Codeine #3 300-30 mg Oral Tablet - take 2 tablet by ORAL route every 6 hours As needed; 6 tablet. - Medication Reconciliation Form, Thank You Letter, Antibiotic Education, Prescription Opioid Use form. - Follow up: Ashwini, AlexaJah ; When: Tomorrow; Reason: Recheck today's complaints, Continuance of care, Re-evaluation by your physician. Signatures: Dispatcher [employer] EDGricelda Rangel, RN RN Danny Romo MD MD [facility] Masood Pete PA PA jmm Riggs, Erika, RN RN ed1 Jaja Valentine RN RN Elida Cortez Corrections: (The following items were deleted from the chart) 03/14 20:36 20:17 03/14/2018 20:17 Discharged to Home. Impression: Generalized abdominal pain; ed1 Diarrhea, unspecified. Condition is Stable. Forms are Medication Reconciliation Form, Thank You Letter, Antibiotic Education, Prescription Opioid Use. Follow up: AlexaJah Maradiaga; When: Tomorrow; Reason: Recheck today's complaints, Continuance of care, Re-evaluation by your physician. don
--- NOTE | 2018-03-14 20:17 | ER ---
Nurse's Notes [facility] Name: Rosario Hines Age: 47 yrs Sex: Female : 1970 Arrival Date: 03/14/2018 Time: 17:25 Bed 5 Private MD: Rufina Maradiaga H Diagnosis: Generalized abdominal pain;Diarrhea, unspecified Presentation: 03/14 17:41 Presenting complaint: Patient states: RLQ pain x 3 days, also reports N/D, denies ph vomiting or fever. Transition of care: patient was not received from another setting of care. Onset of symptoms was March 14, 2018. Risk Assessment: Do you want to hurt yourself or someone else? Patient reports no desire to harm self or others. Initial Sepsis Screen: Does the patient meet any 2 criteria? No. Patient's initial sepsis screen is negative. Care prior to arrival: None. 17:41 Method Of Arrival: Ambulatory ph 17:41 Acuity: LANETTE 3 ph 18:00 Initial Sepsis Screen: Does the patient have a suspected source of infection? No. sv Patient's initial sepsis screen is negative. Historical: - Allergies: 17:42 No Known Allergies; ph - PMHx: 17:42 Bipolar disorder; Hypertension; Pseudo-seizure; ph - PSHx: 17:42 Hysterectomy; Appendectomy; ph - Immunization history:: Adult Immunizations up to date. - Social history:: Smoking status: Patient uses tobacco products, smokes one pack cigarettes per day. - Ebola Screening: : No symptoms or risks identified at this time. Screenin:54 Abuse screen: Denies threats or abuse. Denies injuries from another. Nutritional sv screening: No deficits noted. Tuberculosis screening: No symptoms or risk factors identified. Fall Risk None identified. Assessment: 18:00 General: Appears in no apparent distress. uncomfortable, well developed, Behavior is sv calm, cooperative, appropriate for age. Pain: Complains of pain in right upper quadrant and right lower quadrant Pain currently is 7 out of 10 on a pain scale. Pain: Is continuous. Neuro: Level of Consciousness is awake, alert, obeys commands, Oriented to person, place, time, situation, Moves all extremities. Full function Gait is steady. Respiratory: Respiratory effort is even, unlabored, Respiratory pattern is regular, symmetrical. GI: Abdomen is round Abd is soft X 4 quads Abdomen is tender to palpation in right upper quadrant and right lower quadrant Reports diarrhea, nausea. Derm: Skin is pink, warm \T\ dry. 18:30 Reassessment: Patient appears in no apparent distress at this time. Patient and/or sv family updated on plan of care and expected duration. Pain level reassessed. Patient is alert, oriented x 3, equal unlabored respirations, skin warm/dry/pink. 20:12 Reassessment: Patient appears in no apparent distress at this time. No changes from ed1 previously documented assessment. Patient and/or family updated on plan of care and expected duration. Pain level reassessed. Patient is alert, oriented x 3, equal unlabored respirations, skin warm/dry/pink. I am hoping he will give me something for pain before I leave because I doubt I will be able to get any prescriptions filled tonight. Patient states symptoms have not improved. Vital Signs: 17:42 BP 187 / 93; Pulse 59; Resp 22; Temp 97.8; Pulse Ox 100% on R/A; Weight 81.65 kg; ph Height 5 ft. 3 in. (160.02 cm); Pain 7/10; 18:24 BP 166 / 108; Pulse 58; Resp 20; Pulse Ox 96% on R/A; sv 18:30 Pain 7/10; sv 20:12 BP 160 / 91; Pulse 60; Resp 18; Pulse Ox 100% on R/A; Pain 8/10; ed1 17:42 Body Mass Index 31.89 (81.65 kg, 160.02 cm) ph ED Course: 17:25 Patient arrived in ED. sb2 17:26 Rufina Maradiaga DO is Private Physician. sb2 17:42 Triage completed. ph 17:43 Arm band placed on Patient placed in an exam room. ph 17:48 Masood Pete PA is PHCP. [facility] 17:48 Danny Romo MD is Attending Physician. [facility] 17:53 Gricelda Wang, RUI is Primary Nurse. sv 18:00 Patient has correct armband on for positive identification. Bed in low position. Call sv light in reach. Door closed. Head of bed elevated. 18:05 Initial lab(s) drawn, by me, sent to lab. Inserted saline lock: 20 gauge in left sv antecubital area, using aseptic technique. Blood collected. Flushed left antecubital with 5 ml normal saline. 18:22 US Abdomen Limited In Process Unspecified. EDMS 18:22 Patient moved back from ultrasound. sv 18:44 Lab(s) recollected, by ED staff, sent to lab. sv 19:11 Report given to Audrey RN, Jolie RN, Nupur RN. sv 19:12 Primary Nurse role handed off by Gricelda Wang RN sv 19:15 Jolie Yarbrough, RN is Primary Nurse. ed1 19:[address] via wheelchair. nj 19:36 CT completed. Patient tolerated procedure well. Patient moved back from radiology. nj 19:37 CT Abd/Pelvis - W/Contrast In Process Unspecified. EDMS 20:16 Rufina Maradiaga DO is Referral Physician. [facility] 20:35 No provider procedures requiring assistance completed. IV discontinued, intact, ed1 bleeding controlled, No redness/swelling at site. Pressure dressing applied. Administered Medications: 18:02 Drug: Zofran 4 mg Route: IVP; Infused Over: 2 mins; Site: left antecubital; sv 18:30 Follow up: Response: No adverse reaction; Nausea is decreased sv 18:04 Drug: morphine 4 mg Route: IVP; Infused Over: 2 mins; Site: left antecubital; sv 18:30 Follow up: Pain 7/10 Adult; Response: No adverse reaction; Pain is decreased sv 20:34 Drug: Tylenol #3 (300 mg-30 mg) 1 tablet Route: PO; ed1 20:34 Follow up: Response: Medication administered at discharge. ed1 Outcome: 20:17 Discharge ordered by MD. [facility] 20:35 Discharged to home ambulatory, with family. ed1 20:35 Condition: good 20:35 Discharge instructions given to patient, Instructed on discharge instructions, follow up and referral plans. medication usage, Demonstrated understanding of instructions, follow-up care, medications, Prescriptions given X 3. 20:36 Patient left the ED. ed1 Signatures: Dispatcher [employer] EDMS Gricelda Wang RN RN sv Mickail, Joel, PA PA Jolie Melendez RN RN ed1 Jaja Valentine RN RN Skip Garcia ok Billeau, Machelle sb2 Corrections: (The following items were deleted from the chart) 18:24 18:24 Pulse 58bpm; Resp 20bpm; Pulse Ox 96% RA; sv sv
[2018-03-14] MEDS ORDERED: CODEINE 30MG/APAP 300MG TAB ONE (20:39)
[2018-03-14 21:05] VITALS: TEMP 97.8
[2018-03-14 21:09] VITALS: BP 160/91; O2SAT 100
== END 2018-03-14 20:36 | disposition home or self-care (01) ==
LOC: ER 17:22
DX: R19.7 Diarrhea, unspecified (principal); I10 Essential (primary) hypertension; F17.210 Nicotine dependence, cigarettes, uncomplicated
CPT/HCPCS: 36415; 74177; 76705; 80048; 80076; 81003; 81025; 83690; 85025; 96374; 96375; 99284; J2405; Q9967

== ENCOUNTER 2018-06-10 23:30 | Emergency (ER) | payer OTHER ==
--- OUTSIDE RECORDS SUMMARY | 2018-06-10 23:33 | XMS REPORT ---
[...] End Status Dosage System Date Date Zanaflex [facility] 94575455660 4 MG Orally Active 1 tablet twice a day as needed Celexa [facility] 44449453722 40 MG Orally Active 1 tablet Once a day Lorazepam [facility] [id number] 2 MG Orally Once Active 1 tablet a day at bedtime as needed Trazodone HCl [facility] [id number] 100 MG Orally Active 3 times a TID day Urocit-K 10 [facility] 57480214995 10 MEQ (1080 MG) Active 1 tablet Orally daily with meals Results Name Result Date Reference Range Unit Abnormality Flag URINALYSIS AUTO W/O SCOPE (20533) ----LOY trace [id number] ----NIT neg [id number] ----PROTEIN neg [id number] ----pH 6.0 [id number] ----GLUCOSE neg [id number] ----KETONES neg [id number] ----SPECIFIC GRAVITY 1.025 [id number] ----BLO 1+ [id number] Summary Purpose eClinicalWorks Submission
[2018-06-11 00:55] LABS: Absolute Lymphocytes (CBC) 2.5 K/uL (0.7-4.9); Absolute Monocytes 0.4 K/uL (0.1-1.3); Basophils % 0.9 % (0-1.3); Eosinophils % 1.4 % (0-4.4); Hematocrit 41.6 % (36.0-45.0); Lymphocytes % 35.9 % (15.3-44.8); Monocytes % 5.5 % (3.3-12.3); RBC Red Blood Cell Count 4.71 M/uL (3.86-4.86)
[2018-06-11 01:01] LABS: Protime INR 0.97
[2018-06-11] MEDS ORDERED: NA CHLORIDE 0.9% 1,000 ML ONE (01:07)
[2018-06-11] MEDS ORDERED: ONDANSETRON 4 MG/2 ML VIAL ONE (01:07)
[2018-06-11 01:31] LABS: ALT/SGPT 21 U/L (12-78); AST/SGOT 13 U/L (15-37); Albumin 3.7 g/dL (3.4-5.0); Alkaline Phosphatase 95 U/L (45-117); BUN Blood Urea Nitrogen 15 mg/dL (7-18); Bicarbonate 26 mmol/L (21-32); Bilirubin Direct 0.1 mg/dL (0-0.2); Bilirubin Total 0.4 mg/dL (0.2-1.0); Glucose Level 111 mg/dL (74-106); NT PRO-BNP 515 pg/mL (<125); Potassium 3.8 mmol/L (3.5-5.1); Protein, Total 6.5 g/dL (6.4-8.2); Sodium Level 135 mmol/L (136-145); Troponin (Emerg Dept Use Only) < 0.02 ng/mL (0.0-0.045)
--- NOTE | 2018-06-11 02:24 | ER ---
Nurse's Notes [facility] Name: Rosario Hines Age: 47 yrs Sex: Female : 1970 Arrival Date: 06/10/2018 Time: 23:33 Bed 19 Private MD: Diagnosis: Unspecified adverse effect of drug or medicament Presentation: 06/10 23:42 Presenting complaint: Patient states: Began feeling lightheaded about 2115, check BP lp1 and was 85/55; Patient states slight chest pain but more lightheaded, dizziness; Denies any shortness of breath. Transition of care: patient was not received from another setting of care. Onset of symptoms was June 10, 2018 at 21:15. Risk Assessment: Do you want to hurt yourself or someone else? Patient reports no desire to harm self or others. Initial Sepsis Screen: Does the patient meet any 2 criteria? No. Patient's initial sepsis screen is negative. Does the patient have a suspected source of infection? No. Patient's initial sepsis screen is negative. Care prior to arrival: None. 23:42 Method Of Arrival: Wheelchair lp1 23:42 Acuity: LANETTE 3 lp1 Triage Assessment: 23:52 General: Appears in no apparent distress. comfortable, Behavior is calm, cooperative, cc3 appropriate for age. Pain: Denies pain. EENT: No signs and/or symptoms were reported regarding the EENT system. Neuro: Level of Consciousness is awake, alert, obeys commands, Oriented to person, place, time, situation, Appropriate for age. Cardiovascular: Patient's skin is warm and dry. Respiratory: Airway is patent Respiratory effort is even, unlabored, Respiratory pattern is regular, symmetrical. GI: Abdomen is round non-distended. : No signs and/or symptoms were reported regarding the genitourinary system. Derm: No signs and/or symptoms reported regarding the dermatologic system. Musculoskeletal: Circulation, motion, and sensation intact. Range of motion: intact in all extremities. 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 - Social history:: Smoking status: Patient uses tobacco products, smokes one-half pack cigarettes per day. - Ebola Screening: : No symptoms or risks identified at this time. Screenin:46 Abuse screen: Denies threats or abuse. Denies injuries from another. Nutritional lp1 screening: No deficits noted. Tuberculosis screening: No symptoms or risk factors identified. 23:52 Fall Risk Ambulatory Aid- None/Bed Rest/Nurse Assist (0 pts). Gait- Normal/Bed cc3 Rest/Wheelchair (0 pts) Mental Status- Oriented to own ability (0 pts). Assessment: 06/11 00:18 Reassessment: Patient appears in no apparent distress at this time. Patient and/or cc3 family updated on plan of care and expected duration. Pain level reassessed. Patient is alert, oriented x 3, equal unlabored respirations, skin warm/dry/pink. 01:27 Reassessment: Patient appears in no apparent distress at this time. Patient and/or cc3 family updated on plan of care and expected duration. Pain level reassessed. Patient is alert, oriented x 3, equal unlabored respirations, skin warm/dry/pink. 02:16 Reassessment: Patient appears in no apparent distress at this time. Patient and/or cc3 family updated on plan of care and expected duration. Pain level reassessed. Patient is alert, oriented x 3, equal unlabored respirations, skin warm/dry/pink. 02:50 Reassessment: Patient appears in no apparent distress at this time. Patient and/or cc3 family updated on plan of care and expected duration. Pain level reassessed. Patient is alert, oriented x 3, equal unlabored respirations, skin warm/dry/pink. ORVILLE Pete discharged the patient home, no prescription given. IV cannula removed and patient left ER vitally stable and ambulatory with her . Patient denies pain at this time. Patient states feeling better. Vital Signs: 06/10 23:44 BP 106 / 53; Pulse 58; Resp 18; Temp 98.4(O); Pulse Ox 98% on R/A; Weight 95.71 kg; lp1 Height 5 ft. 3 in. (160.02 cm); Pain 3/10; 23:57 BP 113 / 70; Pulse 59; Resp 16; Pulse Ox 99% on R/A; mt 06/11 00:45 BP 98 / 68; Pulse 53; Resp 18 S; Pulse Ox 96% on R/A; cc3 01:10 BP 101 / 63; Pulse 52; Resp 18 S; Pulse Ox 95% on R/A; cc3 02:17 BP 102 / 59; Pulse 53; Resp 17 S; Pulse Ox 95% on R/A; cc3 06/10 23:44 Body Mass Index 37.38 (95.71 kg, 160.02 cm) lp1 ED Course: 06/10 23:33 Patient arrived in ED. es 23:43 Triage completed. lp1 23:43 Arm band placed on left wrist. lp1 23:52 Mora Michelle is Primary Nurse. cc3 23:52 Patient has correct armband on for positive identification. Bed in low position. Call cc3 light in reach. Side rails up X 1. 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 Pulse ox on. NIBP on. 23:56 EKG done, by ED staff, reviewed by Lauri Pike MD. ok 06/11 00:03 Masood Pete PA is PHCP. [facility] 00:03 Lauri Pike MD is Attending Physician. [facility] 00:35 X-ray completed. Portable x-ray completed in exam room. Patient tolerated procedure kw well. 00:35 XRAY Chest (1 view) In Process Unspecified. EDMS 00:45 Inserted saline lock: 20 gauge in right hand, using aseptic technique. Blood collected. cc3 02:50 No provider procedures requiring assistance completed. IV discontinued, intact, cc3 bleeding controlled, No redness/swelling at site. Pressure dressing applied. Administered Medications: 00:50 Drug: NS 0.9% 1000 ml Route: IV; Rate: 1 bolus; Site: right hand; cc3 02:00 Follow up: Response: No adverse reaction; IV Status: Completed infusion; IV Intake: cc3 1000ml 00:55 Drug: Zofran 4 mg Route: IVP; Site: right hand; cc3 01:30 Follow up: Response: No adverse reaction; Nausea is decreased cc3 Intake: 02:00 IV: 1000ml; Total: 1000ml. cc3 Outcome: 02:23 Discharge ordered by MD. ochoa 02:50 Discharged to home ambulatory, with family. cc3 02:50 Condition: stable 02:50 Discharge instructions given to patient, family, Instructed on discharge instructions, follow up and referral plans. Demonstrated understanding of instructions, follow-up care. 02:52 Patient left the ED. cc3 Signatures: Dispatcher [employer] EDMasood Alvarez PA PA jmm Salyer, Edna es Whitley, Kimberlee kw Pena, Laura, RN RN lp1 Cecilio, Mora Mosquera mt cc3
--- NOTE | 2018-06-11 02:24 | EDPHYS ---
Physician Documentation [facility] Name: Rosario Hines Age: 47 yrs Sex: Female : 1970 Arrival Date: 06/10/2018 Time: 23:33 Bed 19 Private MD: ED Physician Lauri Pike HPI: 06/11 00:13 This 47 yrs old Female presents to ER via Wheelchair with complaints of Blood [facility] Pressure Problem - Low BP. 00:13 This is a 47 year old female with a history of bipolar, htn, migraines that presents to [facility] the ED with complaints of lightheadedness, low blood pressure worsening today. patient states she was evaluated for similar symptoms in early april. patient states over the past two weeks having migraines with vomiting everyday. patient stats she suffers from chronic migraines. headaches are similar in character to previous migraines. . 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 - Social history:: Smoking status: Patient uses tobacco products, smokes one-half pack cigarettes per day. - Ebola Screening: : No symptoms or risks identified at this time. ROS: 06/11 00:13 Constitutional: Negative for fever, chills, and weight loss. [facility] Respiratory: Negative for shortness of breath, cough, wheezing, and pleuritic chest pain. Cardiovascular: Positive for chest pain. Abdomen/GI: Positive for nausea and vomiting, Negative for abdominal pain. Neuro: Positive for headache. All other systems are negative. Exam: 00:13 Constitutional: This is a well developed, well nourished patient who is awake, alert, jmm and in no acute distress. Head/Face: atraumatic. Eyes: EOMI, no conjunctival erythema appreciated ENT: Moist Mucus Membranes Neck: Trachea midline, Supple Chest/axilla: Normal chest wall appearance and motion. Cardiovascular: Regular rate and rhythm. No edema appreciated 00:13 Cardiovascular: Rate: normal, Rhythm: regular. 00:13 Respiratory: the patient does not display signs of respiratory distress, Respirations: normal, Breath sounds: are clear throughout. 00:13 Abdomen/GI: Inspection: abdomen appears normal, Bowel sounds: normal. 00:13 Back: ROM is normal. 00:13 Musculoskeletal/extremity: ROM: intact in all extremities. 00:13 Skin: Appearance: Color: normal in color. 00:13 Neuro: Orientation: is normal, Mentation: is normal, Memory: is normal. 00:13 Psych: Behavior/mood is pleasant, cooperative. Vital Signs: 06/10 23:44 BP 106 / 53; Pulse 58; Resp 18; Temp 98.4(O); Pulse Ox 98% on R/A; Weight 95.71 kg; lp1 Height 5 ft. 3 in. (160.02 cm); Pain 3/10; 23:57 BP 113 / 70; Pulse 59; Resp 16; Pulse Ox 99% on R/A; mt 06/11 00:45 BP 98 / 68; Pulse 53; Resp 18 S; Pulse Ox 96% on R/A; cc3 01:10 BP 101 / 63; Pulse 52; Resp 18 S; Pulse Ox 95% on R/A; cc3 02:17 BP 102 / 59; Pulse 53; Resp 17 S; Pulse Ox 95% on R/A; cc3 06/10 23:44 Body Mass Index 37.38 (95.71 kg, 160.02 cm) lp1 MDM: 00:13 Patient medically screened. [facility] 02:20 Data reviewed: vital signs, nurses notes. Counseling: I had a detailed discussion with don the patient and/or guardian regarding: the historical points, exam findings, and any diagnostic results supporting the discharge/admit diagnosis, lab results, radiology results, the need for outpatient follow up, to return to the emergency department if symptoms worsen or persist or if there are any questions or concerns that arise at home. 02:20 ED course: Patient has recently had psychiatric medication adjustment. Patient is alert jmm and non toxic in appearance, afebrile, i do no currently suspect sepsis. patient takes 3 medications for hypertension. patient is advised to follow up with pcp later today for medication adjustment. patient was recently admitted for similar episode with cardiac clearance. patient given ivf in the ED. BP has remained above 90 systolic. Patient was given strict return precautions. patient understood and agrees with the plan of care. . 06/11 00:14 Order name: Basic Metabolic Panel; Complete Time: [facility] 06/11 00:14 Order name: CBC with Diff; Complete Time: [facility] 06/11 00:14 Order name: LFT's; Complete Time: [facility] 06/11 00:14 Order name: Magnesium; Complete Time: [facility] 06/11 00:14 Order name: NT PRO-BNP; Complete Time: [facility] 06/11 00:14 Order name: PT-INR; Complete Time: [facility] 06/11 00:14 Order name: Troponin (emerg Dept Use Only); Complete Time: [facility] 06/11 00:14 Order name: XRAY Chest (1 view) [facility] 06/11 00:14 Order name: EKG; Complete Time: 00:15 [facility] 06/11 00:14 Order name: Cardiac monitoring; Complete Time: 00: [facility] 06/11 00:14 Order name: EKG - Nurse/Tech; Complete Time: 00:33 06/11 00:14 Order name: IV Saline Lock; Complete Time: 01: [facility] 06/11 00:14 Order name: Labs collected and sent; Complete Time: 01: [facility] 06/11 00:14 Order name: O2 Per Protocol; Complete Time: 00: [facility] 06/11 00:14 Order name: O2 Sat Monitoring; Complete Time: 00:34 jm Administered Medications: 00:50 Drug: NS 0.9% 1000 ml Route: IV; Rate: 1 bolus; Site: right hand; cc3 02:00 Follow up: Response: No adverse reaction; IV Status: Completed infusion; IV Intake: cc3 1000ml 00:55 Drug: Zofran 4 mg Route: IVP; Site: right hand; cc3 01:30 Follow up: Response: No adverse reaction; Nausea is decreased cc3 Disposition: 06/11/18 02:23 Discharged to Home. Impression: Unspecified adverse effect of drug or medicament. - Condition is Stable. - Discharge Instructions: Hypotension. - Medication Reconciliation Form, Thank You Letter, Antibiotic Education, Prescription Opioid Use form. - Follow up: Private Physician; When: Tomorrow; Reason: Recheck today's complaints, Continuance of care, Re-evaluation by your physician. Addendum: 06/12/2018 07:23 Co-signature as Attending Physician, Lauri Pike MD I agree with the assessment and t w4 plan of care. Signatures: Dispatcher [employer] EDMS Masood Pete PA PA jmm Pena, Laura, RN RN lp1 Lauri Pike MD MD tw4 Mora Michelle cc3 Corrections: (The following items were deleted from the chart) 06/11 02:52 02:23 06/11/2018 02:23 Discharged to Home. Impression: Unspecified adverse effect of cc3 drug or medicament. Condition is Stable. Forms are Medication Reconciliation Form, Thank You Letter, Antibiotic Education, Prescription Opioid Use. Follow up: Private Physician; When: Tomorrow; Reason: Recheck today's complaints, Continuance of care, Re-evaluation by your physician. don
[2018-06-11 03:02] VITALS: TEMP 98.4
[2018-06-11 03:06] VITALS: O2SAT 95
[2018-06-11 03:07] VITALS: BP 102/59
--- NOTE | 2018-06-11 07:04 | RAD REPORT ---
EXAM DESCRIPTION: RAD - Chest Single View - 06/11/2018 12:35 am CLINICAL HISTORY: Chest pain COMPARISON: March 2018 TECHNIQUE: AP portable chest image was obtained 0033 hours . FINDINGS: Lungs are clear. Heart and vasculature are normal. No measurable pleural effusion and no p neumothorax. No acute bony abnormality seen. No acute aortic findings suspected. IMPRESSION: No acute cardiopulmonary process. No significant change from comparison.
--- NOTE | 2018-06-11 07:13 | EKG ---
Test Date: 2018-06-10 Test Time: 23:55:30 Taper/Finisher: SADI MEASUREMENT RESULTS: Intervals: Rate: 55 SD: 168 QRSD: 80 QT: 464 QTc: 443 [place]: P: 50 SD: 168 QRS: 48 T: 48 INTERPRETIVE STATEMENTS: Sinus bradycardia Possible Left atrial enlargement Nonspecific T wave abnormality Abnormal ECG Compared to ECG 04/11/2018 22:23:45 T-wave abnormality now present Sinus rhythm no longer present Prolonged QT interval no longer present Electronically Signed On 06-11-18 07:12:16 CDT by Werner Tirado
== END 2018-06-11 02:52 | disposition home or self-care (01) ==
LOC: ER 23:30
DX: T50.905A Adverse effect of unspecified drugs, medicaments and biological substances, initial encounter (principal); I10 Essential (primary) hypertension; F31.9 Bipolar disorder, unspecified; F17.210 Nicotine dependence, cigarettes, uncomplicated
CPT/HCPCS: 36415; 71045; 80048; 80076; 83735; 83880; 84484; 85025; 85610; 93005; J2405; J7030

== ENCOUNTER 2018-07-30 11:26 | Emergency (ER) | payer BC, OTHER ==
--- OUTSIDE RECORDS SUMMARY | 2018-07-30 11:29 | XMS REPORT ---
[...] End Status Dosage System Date Date Zanaflex [facility] 65739928893 4 MG Orally Active 1 tablet twice a day as needed Celexa [facility] 42159564928 40 MG Orally Active 1 tablet Once a day Lorazepam [facility] 47903477709 2 MG Orally Once Active 1 tablet a day at bedtime as needed Trazodone HCl [facility] 91596285435 100 MG Orally Active 3 times a TID day Urocit-K 10 [facility] 38430246554 10 MEQ (1080 MG) Active 1 tablet Orally daily with meals Results Name Result Date Reference Range Unit Abnormality Flag URINALYSIS AUTO W/O SCOPE (73529) ----LOY trace [id number] ----NIT neg [id number] ----PROTEIN neg [id number] ----pH 6.0 20170508 ----GLUCOSE neg [id number] ----KETONES neg [id number] ----SPECIFIC GRAVITY 1.025 [id number] ----BLO 1+ [id number] Summary Purpose eClinicalWorks Submission
[2018-07-30] MEDS ORDERED: HYDROCODONE/APAP 7.5/325 MG TAB ONE (12:01)
[2018-07-30] MEDS ORDERED: IBUPROFEN 400 MG TAB ONE (12:01)
--- NOTE | 2018-07-30 13:25 | EDPHYS ---
Physician Documentation [facility] Name: Rosario Hines Age: 47 yrs Sex: Female : 1970 Arrival Date: 07/30/2018 Time: 11:30 Bed 12 Private MD: Rufina Maradiaga H ED Physician Danny Romo HPI: 07/30 11:45 This 47 yrs old Female presents to ER via Ambulatory with complaints of Fall cp Injury. 11:45 Details of fall: The patient fell from an upright position, while walking. Onset: The cp symptoms/episode began/occurred this morning. Associated injuries: The patient sustained left ankle, painful injury. Patient reports she stood up this morning and leg gave out causing her to fall and injure ankle. 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 - Social history:: Smoking status: unknown. - Ebola Screening: : Patient denies exposure to infectious person Patient denies travel to an Ebola-affected area in the 21 days before illness onset. ROS: 12:00 MS/extremity: Positive for decreased range of motion, pain, tenderness, of the left cp ankle. 12:00 Constitutional: Negative for body aches, chills, fever, poor PO intake. cp 12:00 Neck: Negative for pain with movement, pain at rest, stiffness, bony tenderness. 12:00 Cardiovascular: Negative for chest pain. 12:00 Respiratory: Negative for cough, shortness of breath, wheezing. 12:00 Abdomen/GI: Negative for abdominal pain, nausea, vomiting, and diarrhea. 12:00 Back: Negative for pain at rest, pain with movement. 12:00 Neuro: Negative for altered mental status, headache, numbness, tingling, weakness. 12:00 All other systems are negative. Exam: 12:10 Constitutional: The patient appears in no acute distress, alert, awake, well developed, cp well nourished. 12:10 Head/Face: Normocephalic, atraumatic. cp 12:10 Eyes: Periorbital structures: appear normal, Conjunctiva: normal, no exudate, no injection, Lids and lashes: appear normal, bilaterally. 12:10 Neck: ROM/movement: is normal, is supple, without pain, no range of motions limitations, no nuchal rigidity. 12:10 Chest/axilla: Inspection: normal. 12:10 Cardiovascular: Rate: normal. 12:10 Respiratory: the patient does not display signs of respiratory distress, Respirations: normal. 12:10 Back: pain, is absent, ROM is normal. 12:10 Musculoskeletal/extremity: Extremities: grossly normal except: noted in the left ankle: decreased ROM, pain, tenderness, There is no evidence of deformity, Perfusion: the extremity is normally perfused throughout, Sensation intact. no pain to palpation proximal fibula or base of fifth left metatarsal. 12:10 Skin: no rash present. Vital Signs: 11:32 BP 124 / 74; Pulse 64; Resp 18; Temp 97.7(O); Pulse Ox 98% on R/A; Weight 93.44 kg; hj Height 5 ft. 4 in. (162.56 cm); Pain 9/10; 11:32 Body Mass Index 35.36 (93.44 kg, 162.56 cm) hj MDM: 11:37 Patient medically screened. cp 13:22 Data reviewed: vital signs, nurses notes, radiologic studies, plain films. cp 13:22 Differential diagnosis: fracture, sprain, strain. Test interpretation: by ED physician cp or midlevel provider: plain radiologic studies. Counseling: I had a detailed discussion with the patient and/or guardian regarding: the historical points, exam findings, and any diagnostic results supporting the discharge/admit diagnosis, radiology results, to return to the emergency department if symptoms worsen or persist or if there are any questions or concerns that arise at home. Response to treatment: the patient's symptoms have mildly improved after treatment, and as a result, I will discharge patient. 07/30 11:40 Order name: XRAY Ankle LEFT 3 view; Complete Time: 13:41 cp 07/30 13:16 Order name: Walking boot; Complete Time: 13:48 cp 07/30 13:16 Order name: Crutches; Complete Time: 13:48 cp Administered Medications: 11:52 Drug: Hydrocodone-Acetaminophen (7.5 mg-325 mg) 1 tabs Route: PO; ss 13:48 Follow up: Response: No adverse reaction; Pain is decreased hj 11:52 Drug: Ibuprofen 800 mg Route: PO; ss 13:48 Follow up: Response: No adverse reaction; Pain is decreased hj Disposition: 14:00 Chart complete. cp 07/31 07:48 Co-signature as Attending Physician, Danny Romo MD I agree with the assessment and kdr plan of care. Disposition: 07/30/18 13:24 Discharged to Home. Impression: Pain in left ankle and joints of left foot. - Condition is Stable. - Discharge Instructions: Elastic Bandage and RICE, Ankle Pain. - Prescriptions for Naprosyn 500 mg Oral Tablet - take 1 tablet by ORAL route 2 times per day take with food; 20 tablet. - Medication Reconciliation Form, Thank You Letter, Antibiotic Education, Prescription Opioid Use form. - Follow up: Rufina Maradiaga DO; When: 5 - 6 days; Reason: Recheck today's complaints. - Problem is new. - Symptoms have improved. Signatures: Dispatcher [employer] EDMS Danny Romo MD MD [facility] Deysi Silver RN RN Luis Bunn RN RN hj Cheo Deluca PA PA cp Corrections: (The following items were deleted from the chart) 07/30 13:55 13:24 07/30/2018 13:24 Discharged to Home. Impression: Pain in left ankle and joints of ss left foot. Condition is Stable. Forms are Medication Reconciliation Form, Thank You Letter, Antibiotic Education, Prescription Opioid Use. Follow up: Rufina Maradiaga; When: 5 - 6 days; Reason: Recheck today's complaints. Problem is new. Symptoms have improved. cp
--- NOTE | 2018-07-30 13:25 | ER ---
Nurse's Notes [facility] Name: Rosario Hines Age: 47 yrs Sex: Female : 1970 Arrival Date: 07/30/2018 Time: 11:30 Bed 12 Private MD: Rufina Maradiaga H Diagnosis: Pain in left ankle and joints of left foot Presentation: 07/30 11:31 Presenting complaint: Patient states: i woke up this morning around 9 am and my L leg hj is totally asleep and fell and hurt my L ankle all the way to the toe; denies hitting head and LOC; pain is 9/10;. Transition of care: patient was not received from another setting of care. Onset of symptoms was July 30, 2018. Risk Assessment: Do you want to hurt yourself or someone else? Patient reports no desire to harm self or others. Initial Sepsis Screen: Does the patient meet any 2 criteria? No. Patient's initial sepsis screen is negative. Does the patient have a suspected source of infection? No. Patient's initial sepsis screen is negative. Care prior to arrival: None. 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 - Social history:: Smoking status: unknown. - Ebola Screening: : Patient denies exposure to infectious person Patient denies travel to an Ebola-affected area in the 21 days before illness onset. Screenin:53 Abuse screen: Denies threats or abuse. Denies injuries from another. Nutritional ss screening: No deficits noted. Tuberculosis screening: Never had TB. Fall Risk None identified. Assessment: 11:45 General: Appears uncomfortable, Behavior is calm, cooperative. Pain: Complains of pain ss in L ankle/ foot Pain currently is 9 out of 10 on a pain scale. Neuro: Level of Consciousness is awake, alert, obeys commands. Cardiovascular: Pulses are palpable in right posterior tibial artery and left posterior tibial artery. Respiratory: Airway is patent Respiratory effort is even, unlabored. Derm: Skin is intact, is healthy with good turgor, Skin is pink, warm \T\ dry. normal. Musculoskeletal: Circulation, motion, and sensation intact. Range of motion: intact in all extremities, Swelling absent. 12:55 Reassessment: Delay in care due to XRAY being obtained. XRAY being obtained at this ss time. 13:53 Reassessment: Patient appears in no apparent distress at this time. Patient and/or ss family updated on plan of care and expected duration. Pain level reassessed. Patient is alert, oriented x 3, equal unlabored respirations, skin warm/dry/pink. Vital Signs: 11:32 BP 124 / 74; Pulse 64; Resp 18; Temp 97.7(O); Pulse Ox 98% on R/A; Weight 93.44 kg; hj Height 5 ft. 4 in. (162.56 cm); Pain 9/10; 11:32 Body Mass Index 35.36 (93.44 kg, 162.56 cm) ED Course: 11:30 Patient arrived in ED. mr 11:30 Rufina Maradiaga DO is Private Physician. mr 11:32 Triage completed. hj 11:32 Arm band placed on right wrist. hj 11:36 Cheo Deluca PA is PHCP. cp 11:36 Danny Romo MD is Attending Physician. cp 11:43 Deysi Silver RN is Primary Nurse. ss 13:09 X-ray completed. Portable x-ray completed in exam room. Patient tolerated procedure jb2 well. 13:13 XRAY Ankle LEFT 3 view In Process Unspecified. EDMS 13:24 Rufina Maradiaga DO is Referral Physician. 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 mh5 13:53 Patient has correct armband on for positive identification. Bed in low position. Call ss light in reach. 13:54 No provider procedures requiring assistance completed. Patient did not have IV access ss during this emergency room visit. Administered Medications: 11:52 Drug: Hydrocodone-Acetaminophen (7.5 mg-325 mg) 1 tabs Route: PO; ss 13:48 Follow up: Response: No adverse reaction; Pain is decreased 11:52 Drug: Ibuprofen 800 mg Route: PO; ss 13:48 Follow up: Response: No adverse reaction; Pain is decreased hj Outcome: 13:24 Discharge ordered by . alfonso 13:54 Discharged to home ambulatory. ss 13:54 Condition: good 13:54 Discharge instructions given to patient, Instructed on discharge instructions, follow up and referral plans. medication usage, crutch walking, Demonstrated understanding of instructions, follow-up care, medications, Prescriptions given X 1. 13:55 Patient left the ED. ss Signatures: Dispatcher [employer] EDNeha Guajardo Jesse [email or web address] Deysi Silver RN RN Luis Bunn RN RN Cheo Alaniz PA PA cp Martinez, Maria [facility] Corrections: (The following items were deleted from the chart) 11:34 11:32 Pulse 64bpm; Resp 18bpm; Pulse Ox 98% RA; Temp 97.7F Oral; 93.44 kg; Height 5 ft. hj 4 in.; BMI: 35.3; Pain 9/10; hj 12:20 11:31 Presenting complaint: Patient states: i woke this morning around 9 am and my L hj leg is totally asleep and fell and hurt my L ankle all the way t the toe; denies hitting head and LOC; pain is 9/10; hj
--- NOTE | 2018-07-30 13:38 | RAD REPORT ---
EXAM DESCRIPTION: RAD - Ankle Left 3 View - 07/30/2018 1:11 pm CLINICAL HISTORY: Left ankle pain following fall and twisting injury COMPARISON: None. FINDINGS: No fracture, dislocation or periosteal reaction. No joint effusion seen. No joint space na rrowing. No soft tissue abnormality. IMPRESSION: Negative left ankle for fracture or other acute finding.
[2018-07-30 14:03] VITALS: BP 124/74; TEMP 97.7; O2SAT 98
== END 2018-07-30 13:55 | disposition home or self-care (01) ==
LOC: ER 11:26
DX: M25.572 Pain in left ankle and joints of left foot (principal); F31.9 Bipolar disorder, unspecified; I10 Essential (primary) hypertension
CPT/HCPCS: 99284

== ENCOUNTER 2018-09-10 10:19 | Emergency (ER) | payer BC ==
--- OUTSIDE RECORDS SUMMARY | 2018-09-10 10:21 | XMS REPORT ---
[...] End Status Dosage System Date Date Zanaflex [facility] 93842049345 4 MG Orally Active 1 tablet twice a day as needed Celexa [facility] 93725241915 40 MG Orally Active 1 tablet Once a day Lorazepam [facility] 00972227413 2 MG Orally Once Active 1 tablet a day at bedtime as needed Trazodone HCl [facility] 87132454125 100 MG Orally Active 3 times a TID day Urocit-K 10 [facility] 35733599075 10 MEQ (1080 MG) Active 1 tablet Orally daily with meals Results Name Result Date Reference Range Unit Abnormality Flag URINALYSIS AUTO W/O SCOPE (13574) ----LOY trace [id number] ----NIT neg [id number] ----PROTEIN neg [id number] ----pH 6.0 20170508 ----GLUCOSE neg [id number] ----KETONES neg [id number] ----SPECIFIC GRAVITY 1.025 20170508 ----BLO 1+ [id number] Summary Purpose eClinicalWorks Submission
[2018-09-10] MEDS ORDERED: FENTANYL CITR 100 MCG/2 ML ONE (11:18)
--- NOTE | 2018-09-10 11:32 | ER ---
Nurse's Notes [facility] Name: Rosario Hines Age: 47 yrs Sex: Female : 1970 Arrival Date: 09/10/2018 Time: 10:25 Bed 14 Private MD: Rufina Maradiaga H Diagnosis: Fall on and from stairs and steps;Sprain of radioulnar joint of left wrist Presentation: 09/10 10:32 Presenting complaint: Patient states: was standing on chair while putting up curtains iw yesterday, fell off chair, injured left wrist/hand, denies hitting head, denies any other injury. Transition of care: patient was not received from another setting of care. Onset of symptoms was September 09, 2018. Risk Assessment: Do you want to hurt yourself or someone else? Patient reports no desire to harm self or others. Initial Sepsis Screen: Does the patient meet any 2 criteria? No. Patient's initial sepsis screen is negative. Does the patient have a suspected source of infection? No. Patient's initial sepsis screen is negative. Care prior to arrival: None. 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 - Social history:: Smoking status: Patient uses tobacco products, smokes one-half pack cigarettes per day. - Ebola Screening: : Patient negative for fever greater than or equal to 101.5 degrees Fahrenheit, and additional compatible Ebola Virus Disease symptoms Patient denies exposure to infectious person Patient denies travel to an Ebola-affected area in the 21 days before illness onset No symptoms or risks identified at this time. Screenin:12 Abuse screen: Denies threats or abuse. Denies injuries from another. Nutritional jl7 screening: No deficits noted. Tuberculosis screening: Fall Risk None identified. Assessment: 11:00 General: Appears in no apparent distress. uncomfortable, Behavior is calm, cooperative, jl7 appropriate for age. Pain: Complains of pain in dorsal aspect of left wrist Pain radiates to dorsal aspect of left forearm Pain currently is 8 out of 10 on a pain scale. Quality of pain is described as sharp, Pain began 1 day ago. Is continuous. Neuro: Level of Consciousness is awake, alert, obeys commands, Oriented to person, place, time, situation. Cardiovascular: Patient's skin is warm and dry. Respiratory: Airway is patent Respiratory effort is even, unlabored, Respiratory pattern is regular, symmetrical. GI: No signs and/or symptoms were reported involving the gastrointestinal system. : No signs and/or symptoms were reported regarding the genitourinary system. EENT: No signs and/or symptoms were reported regarding the EENT system. Derm: Skin is pink, warm \T\ dry. Musculoskeletal: Swelling present in dorsal aspect of left wrist. 11:47 Reassessment: Pt will be discharged after radiologist reads the x-ray. jl7 Vital Signs: 10:35 BP 145 / 78; Pulse 56; Resp 16 S; Temp 98.0; Pulse Ox 97% on R/A; Weight 90.72 kg; iw Height 5 ft. 4 in. (162.56 cm); Pain 8/10; 11:12 BP 135 / 96; Pulse 55; Resp 16; Pulse Ox 97% ; Pain 8/10; jl7 11:46 Pain 7/10; jl7 10:35 Body Mass Index 34.33 (90.72 kg, 162.56 cm) iw ED Course: 10:25 Patient arrived in ED. dp 10:26 Rufina Maradiaga DO is Private Physician. dp 10:33 [facility] Emer[facility]C [facility] snw 10:33 Arden Hilario MD is Attending Physician. snw 10:33 Triage completed. iw 10:36 Arm band placed on. iw 10:51 Jacob Partida RN is Primary Nurse. jl7 11:12 Patient has correct armband on for positive identification. Bed in low position. Call jl7 light in reach. Side rails up X 1. Pulse ox on. NIBP on. PO fluids given. 11:19 X-ray completed. Portable x-ray completed in exam room. Patient tolerated procedure sw well. 11:23 Forearm Left XRAY In Process Unspecified. EDMS 11:29 Rufina Maradiaga DO is Referral Physician. snw 11:29 Coy Velasquez MD is Referral Physician. snw 12:11 Orthoglass splint: Sugar tong splint applied on left arm. Radial pulse present and jb1 within normal limits before and after application of splint. Capillary refill was two seconds before and after application of splint. 12:32 No provider procedures requiring assistance completed. Patient did not have IV access iw during this emergency room visit. Administered Medications: 11:12 Drug: fentaNYL (PF) 50 mcg Route: IM; Site: left deltoid; jl7 11:46 Follow up: Pain 7/10 Adult; Response: No adverse reaction; Pain is decreased jl7 Outcome: 11:31 Discharge ordered by . snw 12:32 Discharged to home ambulatory. iw 12:32 Condition: good 12:32 Discharge instructions given to patient, Instructed on discharge instructions, follow up and referral plans. medication usage, Demonstrated understanding of instructions, follow-up care, medications, Prescriptions given X 2. 12:33 Patient left the ED. iw Signatures: Dispatcher [employer] EDIL Joce Lyle jb1 Delilah Emery, BEAUTY SPECIALIST-C BEAUTY SPECIALIST-Csnw Hilary Quesada, RN RN iw Korin Ron Jahala, RN RN jl7 Bucky Fenton
--- NOTE | 2018-09-10 11:32 | EDPHYS ---
Physician Documentation [facility] Name: Rosario Hines Age: 47 yrs Sex: Female : 1970 Arrival Date: 09/10/2018 Time: 10:25 Bed 14 Private MD: Rufina Maradiaga H ED Physician Arden Hilario HPI: 09/10 10:45 This 47 yrs old Female presents to ER via Ambulatory with complaints of Fall snw Injury, Wrist Pain, Arm Pain. 10:45 Details of fall: The patient fell from a height, rolling stool. Onset: The snw symptoms/episode began/occurred suddenly, last night. Associated injuries: The patient sustained dorsal aspect of left wrist, decreased range of motion, obvious fracture, painful injury, swelling. Severity of symptoms: At their worst the symptoms were moderate. The patient has not experienced similar symptoms in the past. The patient has not recently seen a physician. adjusting drapes on rolling stool and it slipped out from under her, landed on left hand/wrist, denies other injury, no LOC. 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 - Social history:: Smoking status: Patient uses tobacco products, smokes one-half pack cigarettes per day. - Ebola Screening: : Patient negative for fever greater than or equal to 101.5 degrees Fahrenheit, and additional compatible Ebola Virus Disease symptoms Patient denies exposure to infectious person Patient denies travel to an Ebola-affected area in the 21 days before illness onset No symptoms or risks identified at this time. ROS: 10:43 Constitutional: Negative for fever, chills, and weight loss, Eyes: Negative for injury, snw pain, redness, and discharge, ENT: Negative for injury, pain, and discharge, Neck: Negative for injury, pain, and swelling, Cardiovascular: Negative for chest pain, palpitations, and edema, Respiratory: Negative for shortness of breath, cough, wheezing, and pleuritic chest pain, Abdomen/GI: Negative for abdominal pain, nausea, vomiting, diarrhea, and constipation, Back: Negative for injury and pain, : Negative for injury, bleeding, discharge, and swelling, Skin: Negative for injury, rash, and discoloration, Neuro: Negative for headache, weakness, numbness, tingling, and seizure, Psych: Negative for depression, anxiety, suicide ideation, homicidal ideation, and hallucinations. 10:43 MS/extremity: Positive for injury or acute deformity, decreased range of motion, pain, swelling, tenderness, of the left wrist and hand. Exam: 10:43 Constitutional: This is a well developed, well nourished patient who is awake, alert, snw and in no acute distress. Head/Face: Normocephalic, atraumatic. Eyes: Pupils equal round and reactive to light, extra-ocular motions intact. Lids and lashes normal. Conjunctiva and sclera are non-icteric and not injected. Cornea within normal limits. Periorbital areas with no swelling, redness, or edema. ENT: Nares patent. No nasal discharge, no septal abnormalities noted. Tympanic membranes are normal and external auditory canals are clear. Oropharynx with no redness, swelling, or masses, exudates, or evidence of obstruction, uvula midline. Mucous membranes moist. Neck: Trachea midline, no thyromegaly or masses palpated, and no cervical lymphadenopathy. Supple, full range of motion without nuchal rigidity, or vertebral point tenderness. No Meningismus. Chest/axilla: Normal chest wall appearance and motion. Nontender with no deformity. No lesions are appreciated. Cardiovascular: Regular rate and rhythm with a normal S1 and S2. No gallops, murmurs, or rubs. Normal PMI, no JVD. No pulse deficits. Respiratory: Lungs have equal breath sounds bilaterally, clear to auscultation and percussion. No rales, rhonchi or wheezes noted. No increased work of breathing, no retractions or nasal flaring. Abdomen/GI: Soft, non-tender, with normal bowel sounds. No distension or tympany. No guarding or rebound. No evidence of tenderness throughout. Back: No spinal tenderness. No costovertebral tenderness. Full range of motion. Skin: Warm, dry with normal turgor. Normal color with no rashes, no lesions, and no evidence of cellulitis. Neuro: Awake and alert, GCS 15, oriented to person, place, time, and situation. Cranial nerves II-XII grossly intact. Motor strength 5/5 in all extremities. Sensory grossly intact. Cerebellar exam normal. Normal gait. Psych: Awake, alert, with orientation to person, place and time. Behavior, mood, and affect are within normal limits. 10:43 Musculoskeletal/extremity: Extremities: grossly normal except: noted in the dorsal aspect of left wrist: decreased ROM, swelling, tenderness, ROM: limited active range of motion due to pain, limited passive range of motion due to pain, Circulation is intact in all extremities. Sensation intact. wedding set removed and given to patient Vital Signs: 10:35 BP 145 / 78; Pulse 56; Resp 16 S; Temp 98.0; Pulse Ox 97% on R/A; Weight 90.72 kg; iw Height 5 ft. 4 in. (162.56 cm); Pain 8/10; 11:12 BP 135 / 96; Pulse 55; Resp 16; Pulse Ox 97% ; Pain 8/10; jl7 11:46 Pain 7/10; jl7 10:35 Body Mass Index 34.33 (90.72 kg, 162.56 cm) iw MDM: 10:33 Patient medically screened. snw 10:43 Data reviewed: vital signs, nurses notes. Data interpreted: Pulse oximetry: on room air snw is 97 %. Interpretation: normal. Counseling: I had a detailed discussion with the patient and/or guardian regarding: the historical points, exam findings, and any diagnostic results supporting the discharge/admit diagnosis, radiology results, the need for outpatient follow up, to return to the emergency department if symptoms worsen or persist or if there are any questions or concerns that arise at home. 09/10 10:43 Order name: Forearm Left XRAY; Complete Time: 11:58 snw 09/10 10:43 Order name: Ice pack; Complete Time: 11:30 snw 09/10 10:43 Order name: Sugar Tong Forearm Splint; Complete Time: 12:08 snw 09/10 10:43 Order name: Sling; Complete Time: 12:08 snw Administered Medications: 11:12 Drug: fentaNYL (PF) 50 mcg Route: IM; Site: left deltoid; jl7 11:46 Follow up: Pain 08/21 Adult; Response: No adverse reaction; Pain is decreased jl7 Disposition: 18:21 Co-signature as Attending Physician, Arden Hilario MD. rn Disposition: 09/10/18 11:31 Discharged to Home. Impression: Fall on and from stairs and steps, Sprain of radioulnar joint of left wrist. - Condition is Stable. - Discharge Instructions: Cast or Splint Care, Adult, RICE for Routine Care of Injuries, How to Use a Sling, Wrist Sprain. - Prescriptions for Diclofenac Sodium 75 mg Oral Tablet Sustained Release - take 1 tablet by ORAL route 2 times per day; 30 tablet. orphenadrine citrate 100 mg Oral Tablet Sustained Release - take 1 tablet by ORAL route 2 times per day As needed; 20 tablet. - Medication Reconciliation Form, Thank You Letter, Antibiotic Education, Prescription Opioid Use form. - Follow up: Emergency Department; When: As needed; Reason: Worsening of condition. Follow up: Rufina Maradiaga DO; When: 2 - 3 days; Reason: Recheck today's complaints, Continuance of care, Re-evaluation by your physician. Follow up: Coy Velasquez MD; When: 2 - 3 days; Reason: Recheck today's complaints, Continuance of care. Signatures: Dispatcher [employer] EDDelilah Lugo, CHARISSE-C EXTERIOR DOOR INSTALLER-Csnw Hilary Quesada RN RN iw Nieto, Roman, MD MD rn Leal, Jahala, RN RN jl7 Corrections: (The following items were deleted from the chart) 12:33 11:31 09/10/2018 11:31 Discharged to Home. Impression: Fall on and from stairs and iw steps; Sprain of radioulnar joint of left wrist. Condition is Stable. Forms are Medication Reconciliation Form, Thank You Letter, Antibiotic Education, Prescription Opioid Use. Follow up: Emergency Department; When: As needed; Reason: Worsening of condition. Follow up: Rufina Maradiaga; When: 2 - 3 days; Reason: Recheck today's complaints, Continuance of care, Re-evaluation by your physician. Follow up: Dr. Coy Velasquez; When: 2 - 3 days; Reason: Recheck today's complaints, Continuance of care. snw
--- NOTE | 2018-09-10 11:53 | RAD REPORT ---
EXAM DESCRIPTION: RAD - Forearm Left - 09/10/2018 11:20 am CLINICAL HISTORY: Fall, left arm pain COMPARISON: None. FINDINGS: No fracture is identified. There is no dislocation or periosteal reaction noted. No foreign body or other soft tissue abnormality. IMPRESSION: Negative left forearm examination.
[2018-09-10 12:38] VITALS: TEMP 98; O2SAT 97
[2018-09-10 12:39] VITALS: BP 135/96
== END 2018-09-10 12:33 | disposition home or self-care (01) ==
LOC: ER 10:19
DX: S63.592A Other specified sprain of left wrist, initial encounter (principal); W07.XXXA Fall from chair, initial encounter; Y93.E9 Activity, other interior property and clothing maintenance; F31.9 Bipolar disorder, unspecified; I10 Essential (primary) hypertension; F17.210 Nicotine dependence, cigarettes, uncomplicated
CPT/HCPCS: 96372; 99284; J3010

== ENCOUNTER 2019-02-05 12:30 | Emergency (ER) | payer BC ==
--- OUTSIDE RECORDS SUMMARY | 2019-02-05 12:32 | XMS REPORT ---
[...] End Status Dosage System Date Date Zanaflex [facility] 32271437522 4 MG Orally Active 1 tablet twice a day as needed Celexa [facility] 40057703075 40 MG Orally Active 1 tablet Once a day Lorazepam [facility] 62809883941 2 MG Orally Once Active 1 tablet a day at bedtime as needed Trazodone HCl [facility] 35281019604 100 MG Orally Active 3 times a TID day Urocit-K [address] [facility] 10394011228 10 MEQ (1080 MG) Active 1 tablet Orally daily with meals Results Name Result Date Reference Range Unit Abnormality Flag URINALYSIS AUTO W/O SCOPE (15599) ----LOY trace [id number] ----NIT neg [id number] ----PROTEIN neg [id number] ----pH 6.0 [id number] ----GLUCOSE neg [id number] ----KETONES neg [id number] ----SPECIFIC GRAVITY 1.025 [id number] ----BLO 1+ [id number] Summary Purpose eClinicalWorks Submission
[2019-02-05] MEDS ORDERED: KETOROLAC 30 MG/ML INJ ONE (13:16)
[2019-02-05] MEDS ORDERED: NA CHLORIDE 0.9% 1,000 ML ONE (13:16)
[2019-02-05 13:21] LABS: Basophils % 0.3 % (0-1.3); Hematocrit 43.8 % (36.0-45.0); Lymphocytes % 10.1 % (15.3-44.8); MPV 8.2 fL (7.6-11.3); RBC Red Blood Cell Count 4.93 M/uL (3.86-4.86)
[2019-02-05 13:37] LABS: Blood Morphology Comment NOT SEEN (NOT SEEN); Platelet Estimate ADEQ
[2019-02-05 13:40] LABS: Albumin 4.3 g/dL (3.4-5.0); Bilirubin Direct 0.2 mg/dL (0-0.2); Bilirubin Total 0.4 mg/dL (0.2-1.0); Potassium 3.9 mmol/L (3.5-5.1); Protein, Total 7.2 g/dL (6.4-8.2)
[2019-02-05 13:56] LABS: Urine Blood 2+ (NEG); Urine Glucose NEGATIVE (NEG); Urine Protein NEGATIVE (NEG); Urine Specific Gravity 1.025 (1.005-1.030)
--- NOTE | 2019-02-05 14:19 | RAD REPORT ---
EXAM DESCRIPTION: CTAbdomen Pelvis W Contrast - 02/05/2019 2:02 pm CLINICAL HISTORY: Abdominal pain. Abd pain;Constipation COMPARISON: Abdomen Pelvis W Contrast dated 03/14/2018; Abdomen Pelvis W Contrast dated 8; Abdomen Pelvis W Contrast dated 04/27/2016; CT ABD PELVIS W CONTRAST dated 12/12/2012 TECHNIQUE: Biphasic CT imaging of the abdomen and pelvis was performed with 100 ml non-ionic IV cont rast. All CT scans are performed using dose optimization technique as appropriate and may include automated exposure control or mA/KV adjustment according to patient size. FINDINGS: The lung bases are clear. The liver, spleen, pancreas, adrenal glands and kidneys are within normal limits. No bowel obstruction, free air, free fluid or abscess. Thickening of the colon is seen, mild in sever ity, compatible with mild colitis. No pneumatosis. The appendix is not identified as a discrete struc ture, however, no secondary findings of appendicitis are identified. The appendix is normal. No caden dence of significant lymphadenopathy. No suspicious bony findings. IMPRESSION: Mild nonspecific colitis.
[2019-02-05] MEDS ORDERED: DICYCLOMINE HCL 10 MG CAP ONE (14:52)
[2019-02-05] MEDS ORDERED: CIPROFLOXACIN HCL 500 MG TAB ONE (14:52)
[2019-02-05] MEDS ORDERED: ONDANSETRON 4 MG/2 ML VIAL ONE (14:52)
[2019-02-05] MEDS ORDERED: METRONIDAZOLE 500mg IVPB 500 MG/100 ML BAG IV ONE (14:53)
--- NOTE | 2019-02-05 16:36 | ER ---
Nurse's Notes [facility] Name: Rosario Hines Age: 48 yrs Sex: Female : 1970 Arrival Date: 02/05/2019 Time: 12:32 Bed 14 Private MD: Rufina Maradiaga H Diagnosis: Colitis Presentation: 02/05 12:50 Presenting complaint: Patient states: has not had a BM X1.5 weeks, had blood in stool iw this am, vomited once, low abd pain, pt hands are also tinged blue, wipes off with alcohol swab. Transition of care: patient was not received from another setting of care. Onset of symptoms was January 26, 2019. Risk Assessment: Do you want to hurt yourself or someone else? Patient reports no desire to harm self or others. Initial Sepsis Screen: Does the patient meet any 2 criteria? No. Patient's initial sepsis screen is negative. Does the patient have a suspected source of infection? No. Patient's initial sepsis screen is negative. Care prior to arrival: None. 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 - Social history:: Smoking status: Patient uses tobacco products, smokes one-half pack cigarettes per day. - Ebola Screening: : Patient negative for fever greater than or equal to 101.5 degrees Fahrenheit, and additional compatible Ebola Virus Disease symptoms Patient denies exposure to infectious person Patient denies travel to an Ebola-affected area in the 21 days before illness onset No symptoms or risks identified at this time. Screenin:01 Abuse screen: Denies threats or abuse. Denies injuries from another. Nutritional ca1 screening: No deficits noted. Tuberculosis screening: No symptoms or risk factors identified. Fall Risk IV access (20 points). Assessment: 13:01 General: Appears in no apparent distress. comfortable, Behavior is calm, cooperative, ca1 appropriate for age. Pain: Complains of pain in right lower quadrant and left lower quadrant Pain currently is 8 out of 10 on a pain scale. Quality of pain is described as crampy, sharp, Pain began 1 day ago. Is continuous. Neuro: Level of Consciousness is awake, alert, obeys commands, Oriented to person, place, time, situation, Appropriate for age. Cardiovascular: Heart tones S1 S2 present Capillary refill < 3 seconds Patient's skin is warm and dry. Respiratory: Airway is patent Respiratory effort is even, unlabored, Respiratory pattern is regular, symmetrical, Breath sounds are clear bilaterally. GI: Abdomen is round non-distended, Bowel sounds present X 4 quads. Abd is soft and non tender X 4 quads. Reports constipation, bloody stool, vomiting. : No deficits noted. No signs and/or symptoms were reported regarding the genitourinary system. EENT: No deficits noted. No signs and/or symptoms were reported regarding the EENT system. Derm: Skin is intact, is healthy with good turgor, Skin is pink, warm \T\ dry. Musculoskeletal: Circulation, motion, and sensation intact. Capillary refill < 3 seconds, Range of motion: intact in all extremities. 14:09 Reassessment: Patient appears in no apparent distress at this time. Patient is alert, ca1 oriented x 3, equal unlabored respirations, skin warm/dry/pink. 15:05 Reassessment: Patient appears in no apparent distress at this time. Patient is alert, ca1 oriented x 3, equal unlabored respirations, skin warm/dry/pink. 16:00 Reassessment: Patient appears in no apparent distress at this time. Patient is alert, ca1 oriented x 3, equal unlabored respirations, skin warm/dry/pink. 17:00 Reassessment: Patient appears in no apparent distress at this time. Patient is alert, ca1 oriented x 3, equal unlabored respirations, skin warm/dry/pink. Vital Signs: 12:46 BP 148 / 91; Pulse 79; Resp 16; Temp 98.1(O); Pulse Ox 100% on R/A; Weight 86.18 kg; iw Height 5 ft. 5 in. (165.10 cm); Pain 8/10; 14:09 BP 139 / 73; Pulse 68; Resp 18 S; Pulse Ox 99% on R/A; ca1 14:42 BP 129 / 70; Pulse 76; Resp 17 S; Pulse Ox 100% on R/A; ca1 15:36 BP 129 / 70; Pulse 63; Resp 17 S; Pulse Ox 99% on R/A; ca1 16:43 BP 134 / 76; Pulse 81; Resp 17 S; Pulse Ox 100% on R/A; ca1 12:46 Body Mass Index 31.62 (86.18 kg, 165.10 cm) iw ED Course: 12:32 Patient arrived in ED. mr 12:33 Rufina Maradiaga DO is Private Physician. mr 12:38 Patrice Abdi NP is PHCP. pm1 12:38 Danny Romo MD is Attending Physician. pm1 12:40 Farrah Mccarthy RN is Primary Nurse. ca1 12:47 Arm band placed on. ca1 12:48 Patient has correct armband on for positive identification. Placed in gown. Bed in low ca1 position. Call light in reach. Side rails up X 1. Pulse ox on. NIBP on. Warm blanket given. 12:53 Triage completed. iw 13:01 No provider procedures requiring assistance completed. ca1 13:10 Initial lab(s) drawn, by me, sent to lab. Inserted saline lock: 22 gauge in right ca1 antecubital area, using aseptic technique. Blood collected. 13:51 Urine collected: clean catch specimen, nicho colored. dh3 14:03 CT Abd/Pelvis - IV Contrast Only In Process Unspecified. EDMS 17:05 IV discontinued, intact, bleeding controlled, No redness/swelling at site. Pressure ca1 dressing applied. Administered Medications: 13:12 Drug: NS 0.9% 1000 ml Route: IV; Rate: 1000 ml; Site: right antecubital; ca1 14:41 Follow up: IV Status: Completed infusion; IV Intake: 1000ml ca1 14:41 Follow up: Response: No adverse reaction ca1 13:15 Drug: TORadol - Ketorolac 15 mg Route: IVP; Site: right antecubital; ca1 14:40 Follow up: Response: No adverse reaction ca1 14:48 Drug: Ciprofloxacin 500 mg Route: PO; ca1 15:34 Follow up: Response: No adverse reaction ca1 14:49 Drug: Bentyl 20 mg Route: PO; ca1 15:35 Follow up: Response: No adverse reaction; Pain is decreased ca1 14:50 Drug: Zofran 4 mg Route: IVP; Site: right antecubital; ca1 15:35 Follow up: Response: No adverse reaction; Nausea is decreased ca1 14:52 Drug: Flagyl 500 mg Volume: 100 ml; Route: IVPB; Rate: 200 ml/hr; Infused Over: 30 ca1 mins; Site: right antecubital; 15:34 Follow up: Response: No adverse reaction; IV Status: Completed infusion ca1 16:55 Drug: traMADol 50 mg Route: PO; ca1 17:03 Follow up: Response: Medication administered at discharge.; RASS: Alert and Calm (0) ca1 Intake: 14:41 IV: 1000ml; Total: 1000ml. ca1 Outcome: 16:35 Discharge ordered by MD. pm1 17:05 Discharged to home ambulatory, with significant other. ca1 17:05 Condition: stable 17:05 Discharge instructions given to patient, Instructed on discharge instructions, follow up and referral plans. medication usage, Demonstrated understanding of instructions, follow-up care, medications, Prescriptions given X x5 17:06 Patient left the ED. ca1 Signatures: Dispatcher [employer] Neha Yang Irene, RN RN iw Patrice Abdi, BEER RUNNER BEER RUNNER pm1 Tami Conte 3 Farrah Mccarthy RN RN ca1 Corrections: (The following items were deleted from the chart) 12:55 12:46 Temp 98.1F Oral; ca1 iw
--- NOTE | 2019-02-05 16:37 | EDPHYS ---
Physician Documentation [facility] Name: Rosario Hines Age: 48 yrs Sex: Female : 1970 Arrival Date: 02/05/2019 Time: 12:32 Bed 14 Private MD: Rufina Maradiaga H ED Physician Danny Romo HPI: 02/05 12:58 This 48 yrs old Female presents to ER via Ambulatory with complaints of pm1 Abdominal Pain, Bloody Stools, Finger discoloration. 12:58 The patient presents with abdominal pain that is diffuse. Onset: The symptoms/episode pm1 began/occurred 4 day(s) ago. The symptoms do not radiate. Associated signs and symptoms: Pertinent positives: constipation, nausea, Pertinent negatives: chest pain, dysuria, fever, shortness of breath, vomiting. The symptoms are described as crampy. Modifying factors: The symptoms are alleviated by nothing, the symptoms are aggravated by nothing. Severity of pain: in the emergency department the pain is actually worse. The patient has not experienced similar symptoms in the past. The patient has not recently seen a physician. Patient realized that blue coloration to hands from blue jeans dye. 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 - Social history:: Smoking status: Patient uses tobacco products, smokes one-half pack cigarettes per day. - Ebola Screening: : Patient negative for fever greater than or equal to 101.5 degrees Fahrenheit, and additional compatible Ebola Virus Disease symptoms Patient denies exposure to infectious person Patient denies travel to an Ebola-affected area in the 21 days before illness onset No symptoms or risks identified at this time. ROS: 12:58 Constitutional: Negative for fever, chills, and weight loss, Eyes: Negative for injury, pm1 pain, redness, and discharge, ENT: Negative for injury, pain, and discharge, Neck: Negative for injury, pain, and swelling, Cardiovascular: Negative for chest pain, palpitations, and edema, Respiratory: Negative for shortness of breath, cough, wheezing, and pleuritic chest pain. 12:58 Back: Negative for injury and pain, : Negative for injury, bleeding, discharge, and swelling, MS/Extremity: Negative for injury and deformity, Skin: Negative for injury, rash, and discoloration, Neuro: Negative for headache, weakness, numbness, tingling, and seizure. 12:58 Abdomen/GI: Positive for abdominal pain, nausea, constipation, Negative for vomiting, diarrhea. Exam: 12:58 Constitutional: This is a well developed, well nourished patient who is awake, alert, pm1 and in no acute distress. Head/Face: Normocephalic, atraumatic. Eyes: Pupils equal round and reactive to light, extra-ocular motions intact. Lids and lashes normal. Conjunctiva and sclera are non-icteric and not injected. Cornea within normal limits. Periorbital areas with no swelling, redness, or edema. ENT: Nares patent. No nasal discharge, no septal abnormalities noted. Tympanic membranes are normal and external auditory canals are clear. Oropharynx with no redness, swelling, or masses, exudates, or evidence of obstruction, uvula midline. Mucous membranes moist. Neck: Trachea midline, no thyromegaly or masses palpated, and no cervical lymphadenopathy. Supple, full range of motion without nuchal rigidity, or vertebral point tenderness. No Meningismus. Chest/axilla: Normal chest wall appearance and motion. Nontender with no deformity. No lesions are appreciated. Cardiovascular: Regular rate and rhythm with a normal S1 and S2. No gallops, murmurs, or rubs. No pulse deficits. Respiratory: Lungs have equal breath sounds bilaterally, clear to auscultation and percussion. No rales, rhonchi or wheezes noted. No increased work of breathing, no retractions or nasal flaring. 12:58 Back: No spinal tenderness. No costovertebral tenderness. Full range of motion. Skin: Warm, dry with normal turgor. Normal color with no rashes, no lesions, and no evidence of cellulitis. MS/ Extremity: Pulses equal, no cyanosis. Neurovascular intact. Full, normal range of motion. 12:58 Abdomen/GI: Inspection: obese Bowel sounds: normal, Palpation: soft, mild abdominal tenderness, in the abdomen diffusely, mass, is not appreciated, rebound tenderness, is not appreciated. 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 12:58 Neuro: Orientation: is normal, Motor: is normal, moves all fours, Sensation: is normal, no obvious gross deficits. Vital Signs: 12:46 BP 148 / 91; Pulse 79; Resp 16; Temp 98.1(O); Pulse Ox 100% on R/A; Weight 86.18 kg; iw Height 5 ft. 5 in. (165.10 cm); Pain 8/10; 14:09 BP 139 / 73; Pulse 68; Resp 18 S; Pulse Ox 99% on R/A; ca1 14:42 BP 129 / 70; Pulse 76; Resp 17 S; Pulse Ox 100% on R/A; ca1 15:36 BP 129 / 70; Pulse 63; Resp 17 S; Pulse Ox 99% on R/A; ca1 16:43 BP 134 / 76; Pulse 81; Resp 17 S; Pulse Ox 100% on R/A; ca1 12:46 Body Mass Index 31.62 (86.18 kg, 165.10 cm) iw MDM: 12:45 Patient medically screened. pm1 16:35 Data reviewed: vital signs. Data interpreted: Pulse oximetry: on room air is 99 %. pm1 Interpretation: normal. Counseling: I had a detailed discussion with the patient and/or guardian regarding: the historical points, exam findings, and any diagnostic results supporting the discharge/admit diagnosis, lab results, radiology results, the need for outpatient follow up, to return to the emergency department if symptoms worsen or persist or if there are any questions or concerns that arise at home. 02/05 12:58 Order name: Basic Metabolic Panel; Complete Time: 13:46 pm1 02/05 12:58 Order name: CBC with Diff; Complete Time: 13:46 pm1 02/05 12:58 Order name: Creatinine for Radiology; Complete Time: 13:46 pm1 02/05 12:58 Order name: Hepatic Function; Complete Time: 13:46 pm1 02/05 12:58 Order name: Lipase; Complete Time: 13:46 pm1 02/05 13:38 Order name: Manual Differential EDMS 02/05 12:58 Order name: CT Abd/Pelvis - IV Contrast Only; Complete Time: 14:32 pm1 02/05 13:51 Order name: Urine Dipstick--Ancillary (enter results); Complete Time: 14:13 ms 02/05 12:58 Order name: IV Saline Lock; Complete Time: 13:19 pm1 02/05 12:58 Order name: Labs collected and sent; Complete Time: 13:19 pm1 02/05 12:58 Order name: Urine Dipstick-Ancillary (obtain specimen); Complete Time: 13:51 pm1 Administered Medications: 13:12 Drug: NS 0.9% 1000 ml Route: IV; Rate: 1000 ml; Site: right antecubital; ca1 14:41 Follow up: IV Status: Completed infusion; IV Intake: 1000ml ca1 14:41 Follow up: Response: No adverse reaction ca1 13:15 Drug: TORadol - Ketorolac 15 mg Route: IVP; Site: right antecubital; ca1 14:40 Follow up: Response: No adverse reaction ca1 14:48 Drug: Ciprofloxacin 500 mg Route: PO; ca1 15:34 Follow up: Response: No adverse reaction ca1 14:49 Drug: Bentyl 20 mg Route: PO; ca1 15:35 Follow up: Response: No adverse reaction; Pain is decreased ca1 14:50 Drug: Zofran 4 mg Route: IVP; Site: right antecubital; ca1 15:35 Follow up: Response: No adverse reaction; Nausea is decreased ca1 14:52 Drug: Flagyl 500 mg Volume: 100 ml; Route: IVPB; Rate: 200 ml/hr; Infused Over: 30 ca1 mins; Site: right antecubital; 15:34 Follow up: Response: No adverse reaction; IV Status: Completed infusion ca1 16:55 Drug: traMADol 50 mg Route: PO; ca1 17:03 Follow up: Response: Medication administered at discharge.; RASS: Alert and Calm (0) ca1 Disposition: 18:33 Co-signature as Attending Physician, Danny Romo MD I agree with the assessment and kdr plan of care. Disposition: 02/05/19 16:35 Discharged to Home. Impression: Colitis. - Condition is Stable. - Discharge Instructions: Clear Liquid Diet, Adult, Colitis. - Prescriptions for Bentyl 20 mg Oral Tablet - take 1 tablet by ORAL route every 6 hours As needed; 20 tablet. Flagyl 500 mg Oral Tablet - take 1 tablet by ORAL route every 8 hours for 10 days; 30 tablet. Zofran 4 mg Oral Tablet - take 1 tablet by ORAL route every 8 hours As needed; 20 tablet. Cipro 500 mg Oral Tablet - take 1 tablet by ORAL route every 12 hours for 10 days; 20 tablet. Tramadol 50 mg Oral Tablet - take 1 tablet by ORAL route every 8 hours as needed; 12 tablet. - Medication Reconciliation Form, Thank You Letter, Antibiotic Education, Prescription Opioid Use form. - Follow up: Emergency Department; When: As needed; Reason: Worsening of condition. Follow up: Private Physician; When: 2 - 3 days; Reason: Recheck today's complaints, Continuance of care, Re-evaluation by your physician. - Problem is new. - Symptoms have improved. Signatures: Dispatcher [employer] EDMS Danny Rmoo MD MD kdr Hilary Quesada RN RN iw Patrice Abdi, ALLIE FREIGHT LOADING SUPERVISOR pm1 Farrah Mccarthy RN RN ca1 Corrections: (The following items were deleted from the chart) 13:12 12:58 Urine Test ordered. pm1 dh3 17:06 16:35 02/05/2019 16:35 Discharged to Home. Impression: Colitis. Condition is Stable. ca1 Discharge Instructions: Colitis. Prescriptions for Bentyl 20 mg Oral Tablet - take 1 tablet by ORAL route every 6 hours As needed; 20 tablet, Flagyl 500 mg Oral Tablet - take 1 tablet by ORAL route every 8 hours for 10 days; 30 tablet, Zofran 4 mg Oral Tablet - take 1 tablet by ORAL route every 8 hours As needed; 20 tablet, Cipro 500 mg Oral Tablet - take 1 tablet by ORAL route every 12 hours for 10 days; 20 tablet, Tramadol 50 mg Oral Tablet - take 1 tablet by ORAL route every 8 hours as needed; 12 tablet. and Forms are Medication Reconciliation Form, Thank You Letter, Antibiotic Education, Prescription Opioid Use. Follow up: Emergency Department; When: As needed; Reason: Worsening of condition. Follow up: Private Physician; When: 2 - 3 days; Reason: Recheck today's complaints, Continuance of care, Re-evaluation by your physician. Problem is new. Symptoms have improved. pm1
[2019-02-05] MEDS ORDERED: TRAMADOL HCL 50 MG TAB ONE (16:58)
[2019-02-05 17:21] VITALS: TEMP 98.1
[2019-02-05 17:27] VITALS: BP 134/76; O2SAT 100
== END 2019-02-05 17:06 | disposition home or self-care (01) ==
LOC: ER 12:30
DX: K52.9 Noninfective gastroenteritis and colitis, unspecified (principal); F17.210 Nicotine dependence, cigarettes, uncomplicated
CPT/HCPCS: 96365; 96361; 85025; 80048; 36415; 80076; 81003; 83690; 74177; 96375; 99284; Q9967; J7030; J2405

== ENCOUNTER 2022-06-26 09:14 | Emergency (ER) | payer BC ==
[2022-06-26 10:02] LABS: Absolute Lymphocytes (CBC) 1.3 K/uL (0.7-4.9); Hematocrit 41.1 % (36.0-45.0); Lymphocytes % 34.9 % (15.3-44.8); MCV 88.8 fL (80-100); MPV 6.8 fL (7.6-11.3); RBC Red Blood Cell Count 4.63 M/uL (3.86-4.86)
[2022-06-26] MEDS ORDERED: MORPHINE 4 MG/ML SYR ONE (10:10)
[2022-06-26] MEDS ORDERED: ONDANSETRON 4 MG/2 ML VIAL ONE (10:10)
[2022-06-26] MEDS ORDERED: NA CHLORIDE 0.9% 1,000 ML ONE (10:10)
[2022-06-26 10:20] LABS: Albumin 3.9 g/dL (3.4-5.0); Bilirubin Total 0.3 mg/dL (0.2-1.0); Potassium 3.9 mEq/L (3.5-5.1); Protein, Total 6.9 g/dL (6.4-8.2)
--- NOTE | 2022-06-26 10:52 | RAD REPORT ---
EXAM DESCRIPTION: CTAbdomen Pelvis W Contrast - 06/26/2022 10:33 am CLINICAL HISTORY: abdominal pain COMPARISON: Abdomen Pelvis W Contrast dated 02/05/2019; Abdomen Pelvis W Contrast dated 9; Abdomen Pelvis W Contrast dated 11/23/2017; Abdomen Pelvis W Contrast dated 04/27/2016 TECHNIQUE: CT of the abdomen and pelvis was performed. All CT scans are performed using dose optimization technique as appropriate and may include automated exposure control or mA/KV adjustment according to patient size. FINDINGS: Lower chest: No acute abnormality. Liver: No acute abnormality or suspicious lesions. Biliary: No biliary ductal dilatation. Stomach: No significant focal abnormality. Duodenum: No significant focal abnormality. Pancreas: No significant abnormality. Spleen: No significant abnormality. Adrenal: No suspicious lesions. Kidney/ureter: No hydronephrosis. No renal calculi. Retroperitoneum: No retroperitoneal adenopathy. Vascular: No aneurysm. Bowel: Edit moderate formed stool within the ascending and transverse colon. No appendicitis Peritoneum: Small volume of pleural free fluid. Bladder: Grossly unremarkable. Reproductive: No adnexal masses. Bones: No acute fracture. Other: n/a IMPRESSION: No acute intra-abdominal or pelvic finding.
--- NOTE | 2022-06-26 11:39 | ER ---
Nurse's Notes [facility] Name: Rosario Hines Age: 51 yrs Sex: Female : 1970 Arrival Date: 06/26/2022 Time: 09:14 Bed 11 Private MD: Diagnosis: Abdominal pain, Generalized Presentation: 06/26 09:36 Chief complaint: Patient states: lower abd pain since yesterday , had diarrhea X 10 iw days but it has resolved now. Coronavirus screen: At this time, the client does not indicate any symptoms associated with coronavirus-19. Ebola Screen: Patient negative for fever greater than or equal to 101.5 degrees Fahrenheit, and additional compatible Ebola Virus Disease symptoms Patient denies exposure to infectious person. Patient denies travel to an Ebola-affected area in the 21 days before illness onset. No symptoms or risks identified at this time. Initial Sepsis Screen: Does the patient meet any 2 criteria? No. Patient's initial sepsis screen is negative. Does the patient have a suspected source of infection? No. Patient's initial sepsis screen is negative. Risk Assessment: Do you want to hurt yourself or someone else? Patient reports no desire to harm self or others. Onset of symptoms was June 25, 2022. 09:36 Method Of Arrival: Ambulatory iw 09:36 Acuity: LANETTE 3 iw Triage Assessment: 12:00 General: Appears in no apparent distress. Behavior is calm, cooperative. iw HOME COMFORT ADVISOR: 12:00 LMP N/A - iw Historical: - Allergies: 09:38 No Known Allergies; iw - PMHx: 09:38 Back pain; Bipolar disorder; Hypertension; Pseudo-seizure; iw - PSHx: 09:38 hysterectomy; Appendectomy; tubal ligation; iw - Immunization history:: Adult Immunizations unknown. - Social history:: Smoking status: unknown. Screenin:08 [facility] ED Fall Risk Assessment (Adult) History of falling in the last 3 months, iw including since admission. Abuse screen: Denies threats or abuse. Denies injuries from another. Nutritional screening: No deficits noted. Tuberculosis screening: No symptoms or risk factors identified. Assessment: 09:45 General: Appears in no apparent distress. Behavior is calm, cooperative. Pain: iw Complains of pain in abdomen. Neuro: Level of Consciousness is awake, alert, obeys commands, Oriented to person, place, time, situation, Moves all extremities. Full function. Cardiovascular: Patient's skin is warm and dry. Respiratory: Respiratory effort is even, unlabored, Respiratory pattern is regular, symmetrical. GI: Abdomen is flat, non-distended, Abd is soft X 4 quads Reports diarrhea, nausea. Derm: Skin is intact, is healthy with good turgor. Musculoskeletal: Range of motion: intact in all extremities. Vital Signs: 09:36 Weight 67.13 kg; Height 5 ft. 4 in. ; Pain 8/10; iw 10:50 BP 156 / 100; Pulse 79; Resp 16; Pulse Ox 97% on R/A; Pain 8/10; iw 09:36 Body Mass Index 25.40 (67.13 kg, 162.56 cm) iw 09:36 Pain Scale: Adult iw 10:50 Pain Scale: Adult iw ED Course: 09:18 Patient arrived in ED. mr 09:20 Masood Pete PA is PHCP. jmm 09:20 Arden Hilario MD is Attending Physician. jmm 09:38 Triage completed. iw 09:38 Arm band placed on. iw 09:45 Patient has correct armband on for positive identification. iw 10:01 Hilary Quesada, RN is Primary Nurse. iw 10:34 CT Abd/Pelvis - IV Contrast Only In Process Unspecified. EDMS 11:38 Simone Underwood MD is Referral Physician. jmm 12:07 No provider procedures requiring assistance completed. IV discontinued, intact, iw bleeding controlled, No redness/swelling at site. Pressure dressing applied. Administered Medications: 10:12 Drug: NS 0.9% IV 1000 ml Route: IV; Rate: 1 bolus; Site: right antecubital; iw 11:00 Follow up: IV Status: Completed infusion iw 10:12 Drug: Ondansetron IVP 4 mg Route: IVP; Site: right antecubital; iw 10:30 Follow up: Response: No adverse reaction iw 10:12 Drug: morphine IVP or IV 4 mg Route: IVP; Infused Over: 4 mins; Site: right antecubital;iw 10:30 Follow up: Response: No adverse reaction; Pain is decreased iw Medication: 10:00 VIS not applicable for this client. iw Outcome: 11:39 Discharge ordered by . jmm 12:07 Discharged to home via wheelchair, with family. iw 12:07 Condition: good 12:07 Discharge instructions given to patient, Instructed on discharge instructions, follow up and referral plans. Demonstrated understanding of instructions, follow-up care, medications, Prescriptions given X 2. 12:08 Patient left the ED. iw Signatures: Dispatcher [employer] EDMS Masood Pete PA PA jmm Rivera, Mary mr Williams, Irene, RN RN iw Corrections: (The following items were deleted from the chart) 17:41 12:07 Discharge instructions given to patient, Instructed on discharge instructions, iw follow up and referral plans. Demonstrated understanding of instructions, follow-up care, iw
--- NOTE | 2022-06-26 11:39 | EDPHYS ---
Physician Documentation [facility] Name: Rosario Hines Age: 51 yrs Sex: Female : 1970 Arrival Date: 06/26/2022 Time: 09:14 Bed 11 Private MD: ED Physician Arden Hilario HPI: 06/26 09:37 This 51 yrs old Female presents to ER via Ambulatory with complaints of Abdominal Pain. m 09:37 The patient presents with abdominal pain. Onset: The symptoms/episode began/occurred jmm gradually, 1.5 week(s) ago. The symptoms do not radiate. Associated signs and symptoms: Pertinent positives: nausea and vomiting, diarrhea. The symptoms are described as achy. Modifying factors: The symptoms are alleviated by nothing, the symptoms are aggravated by nothing. The patient has experienced similar episodes in the past. 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 - Social history:: Smoking status: unknown. ROS: 09:37 Constitutional: Negative for fever, chills, and weight loss, Cardiovascular: Negative jmm for chest pain, palpitations, and edema, Respiratory: Negative for shortness of breath, cough, wheezing, and pleuritic chest pain. 09:37 Abdomen/GI: Positive for abdominal pain, nausea and vomiting, diarrhea. 09:37 All other systems are negative. Exam: 09:37 Constitutional: This is a well developed, well nourished patient who is awake, alert, jmm and in no acute distress. Head/Face: atraumatic. Eyes: EOMI, no conjunctival erythema appreciated ENT: Moist Mucus Membranes Neck: Trachea midline, Supple Chest/axilla: Normal chest wall appearance and motion. Cardiovascular: Regular rate and rhythm. No edema appreciated Respiratory: Normal respirations, no respiratory distress appreciated 09:37 Back: Normal ROM Skin: General appearance color normal MS/ Extremity: Moves all extremities, no obvious deformities appreciated, no edema noted to the lower extremities Neuro: Awake and alert Psych: Behavior is normal, Mood is normal, Patient is cooperative and pleasant 09:37 Abdomen/GI: Inspection: abdomen appears normal, Bowel sounds: normal, Palpation: soft, mild abdominal tenderness, in all quadrants. Vital Signs: 09:36 Weight 67.13 kg; Height 5 ft. 4 in. ; Pain 8/10; iw 10:50 BP 156 / 100; Pulse 79; Resp 16; Pulse Ox 97% on R/A; Pain 8/10; iw 09:36 Body Mass Index 25.40 (67.13 kg, 162.56 cm) iw 09:36 Pain Scale: Adult iw 10:50 Pain Scale: Adult iw MDM: 09:37 Patient medically screened. [facility] 11:36 Data reviewed: vital signs, nurses notes, radiologic studies, CT scan. Consideration of [facility] Admission/Observation Escalation of care including admission/observation considered. Historians other than the Patient: spouse. Counseling: I had a detailed discussion with the patient and/or guardian regarding: the historical points, exam findings, and any diagnostic results supporting the discharge/admit diagnosis, lab results, radiology results, the need for outpatient follow up, to return to the emergency department if symptoms worsen or persist or if there are any questions or concerns that arise at home. ED course: Pain decreased in the ED. Patient is advised to follow up with GI for further evaluation. Patient is otherwise given strict return precautions. Patient understood and agrees with the plan of care. . 06/26 09:38 Order name: CBC with Diff; Complete Time: 10:16 [facility] 06/26 09:38 Order name: CMP; Complete Time: 10:23 [facility] 06/26 09:38 Order name: Lipase; Complete Time: 10:23 [facility] 06/26 09:38 Order name: CT Abd/Pelvis - IV Contrast Only; Complete Time: 10:52 [facility] 06/26 09:38 Order name: IV Saline Lock; Complete Time: 10:01 [facility] 06/26 09:38 Order name: Labs collected and sent; Complete Time: 10:01 [facility] Administered Medications: 10:12 Drug: NS 0.9% IV 1000 ml Route: IV; Rate: 1 bolus; Site: right antecubital; iw 11:00 Follow up: IV Status: Completed infusion iw 10:12 Drug: Ondansetron IVP 4 mg Route: IVP; Site: right antecubital; iw 10:30 Follow up: Response: No adverse reaction iw 10:12 Drug: morphine IVP or IV 4 mg Route: IVP; Infused Over: 4 mins; Site: right antecubital;iw 10:30 Follow up: Response: No adverse reaction; Pain is decreased iw Disposition: 13:04 Co-signature as Attending Physician, Arden Hilario MD I reviewed the patient's care rn provided by the Advanced Practice Provider and agree with the diagnosis and treatment plan. Disposition Summary: 06/26/22 11:39 Discharge Ordered Location: Home [facility] Condition: Stable [facility] Diagnosis - Abdominal pain, Generalized jmm Followup: [facility] - With: Simone Underwood MD - When: 2 - 3 days - Reason: Recheck today's complaints, Continuance of care, Re-evaluation by your physician Discharge Instructions: - Discharge Summary Sheet [facility] - Abdominal Pain, Adult [facility] Forms: - Medication Reconciliation Form [facility] - Thank You Letter [facility] - Antibiotic Education [facility] - Prescription Opioid Use [facility] Prescriptions: - ondansetron 4 mg Oral Tablet,disintegrating - take 1 tablet by ORAL route every 4-6 hours As needed; 30 tablet; Refills: 0, [facility] Product Selection Permitted - dicyclomine 20 mg Oral Tablet - take 1 tablet by ORAL route 3 times per day As needed; 30 tablet; Refills: 0, [facility] Product Selection Permitted Signatures: Dispatcher [employer] Masood Carreon PA PA jmm Williams, Irene, RN RN Arden Nichols MD MD rn
[2022-06-26 12:17] VITALS: BP 156/100; O2SAT 97
== END 2022-06-26 12:08 | disposition home or self-care (01) ==
LOC: ER 09:14
DX: R10.84 Generalized abdominal pain (principal); I10 Essential (primary) hypertension; F31.9 Bipolar disorder, unspecified; Z90.710 Acquired absence of both cervix and uterus
CPT/HCPCS: 96361; 85025; 36415; 83690; 80053; 74177; 96375; 96374; 99284; Q9967; J2405; J7030